=== PATIENT | female | born 1975 | race Caucasian/White ===

== ENCOUNTER 2020-05-10 10:14 | Outpatient (REF) | payer OTHER, SELFPAY ==
--- NOTE | 2020-05-10 10:18 | MM_ITS ---
EXAMINATION: MM SCREENING DIGITAL BREAST TOMOSYNTHESIS, BILATERAL CLINICAL INFORMATION: Screening. Asymptomatic. The lifetime risk of breast cancer based on the Tyrer-Cuzick Model is 19.5%. COMPARISON: Mammography: 05/05/2019, 05/03/2018 TECHNIQUE: Digital breast tomosynthesis is performed in both the craniocaudal and mediolateral oblique views along with computer-aided detection (CAD). Synthesized 2D images are generated from the tomosynthesis. FINDINGS: There are scattered areas of fibroglandular density (ACR BI-RADS breast composition Category b). There are no significant masses, abnormal calcifications, or other abnormalities. The axilla and skin contours are unremarkable. No significant changes. IMPRESSION: No mammographic evidence of malignancy. ASSESSMENT: BI-RADS 1: Negative RECOMMENDATION: Routine annual mammography screening. This patient's information was entered into a reminder system with a target due date for their next mammogram.
== END 2020-05-10 10:15 | disposition home or self-care (01) ==
LOC: HO.MAMMO 10:14
PROVIDERS: PCP Internal Medicine; Visit Provider Internal Medicine
DX: Z12.31 Encounter for screening mammogram for malignant neoplasm of breast (principal)
CPT/HCPCS: 77063; 77067; 78014

== ENCOUNTER → 2020-05-28 09:14 | Outpatient (BNVA) | payer OTHER, SELFPAY | PROVIDERS: PCP Internal Medicine; Visit Provider Obstetrics & Gynecology | DX: Z76.89 Persons encountering health services in other specified circumstances (principal) ==

== ENCOUNTER 2021-06-23 10:52 | Outpatient (REF) | payer BC, SELFPAY ==
--- NOTE | ~2021-06-23 | MM_ITS ---
EXAMINATION: MM SCREENING DIGITAL BREAST TOMOSYNTHESIS, BILATERAL CLINICAL INFORMATION: Screening. Asymptomatic. The lifetime risk of breast cancer based on the Tyrer-Cuzick Model is 24%. COMPARISON: Mammography: 05/10/2020, 05/05/2019, 05/03/2018 TECHNIQUE: Digital breast tomosynthesis is performed in both the craniocaudal and mediolateral oblique views along with computer-aided detection (CAD). Synthesized 2D images are generated from the tomosynthesis. FINDINGS: The breasts are heterogeneously dense, which may obscure small masses (ACR BI-RADS breast composition Category c). Breast tissue composition borders on average fibroglandular. There are no significant masses, abnormal calcifications, or other abnormalities. Parenchymal pattern is similar to prior exams. No developing density. The axilla and skin contours are unremarkable. No significant changes. MM/MM tomosynthesis screening BI IMPRESSION: No mammographic evidence of malignancy. ASSESSMENT: BI-RADS 1: Negative RECOMMENDATION: 1. Routine annual mammography screening. 2. The lifetime risk of breast cancer based on the Tyrer-Cuzick Model is 24%. Additional annual adjunct screening with breast MRI may be of benefit in women with a risk score of 20% or greater. This patient's information was entered into a reminder system with a target due date for their next mammogram.
== END 2021-06-23 10:53 | disposition home or self-care (01) ==
LOC: HO.MAMMO 10:52
PROVIDERS: PCP Internal Medicine; Visit Provider Internal Medicine
DX: Z12.31 Encounter for screening mammogram for malignant neoplasm of breast (principal)
CPT/HCPCS: 77063; 77067

== ENCOUNTER 2021-06-25 06:24 | Day surgery (SDC) | payer BC, SELFPAY ==
[2021-06-19 11:43] VITALS: BMI 39.4
--- NOTE | 2021-06-24 09:10 | HO.ANESPROP2 ---
Documented by User: Arlene Cowan NP 06/24/21 09:11 HPI - Anesthesia Eval Consult details Narrative: 45yo F for Upper Endoscopy PMFSH Active Problems Active Problems: All Active Problems (Updated 10/16/20 @ 10:27 by Hiram Davis MD) Hiatal hernia (Acute) Environmental allergies (Acute) Morbid obesity (Acute) Encounter for general adult medical examination with abnormal findings (Acute) Well woman exam (Acute) Past Medical History Medical History (Updated 10/16/20 @ 10:27 by Hiram Davis MD) GERD (gastroesophageal reflux disease) Family History Family History Mother Uterine cancer Surgical History Surgical History (Updated 06/25/21 @ 06:38 by Adrianne Morrison RN) History of Hx of wisdom tooth extraction Social History Social History Alcohol intake: never Patient Tobacco Use Status: Never used Tobacco Use of substances other than those prescribed or required for medical reasons: No Are you DNR?: No Advance Directives: No Advance Directives Information Provided: Yes Sexual orientation: Straight/Heterosexual Gender identity: Female Meds Allergies Allergy/AdvReac Type Severity Reaction Status Date / Time No Known Allergies Allergy Unverified 10/16/20 09:56 [No Known Allergies*] Home Medications Medication Instructions Recorded Confirmed Last Taken Type desoximetasone 0.25 % topical cream applic TOPICAL BID 05/28/20 10/16/20 Unknown History multivitamin 1 cap PO DAILY 05/28/20 10/16/20 Unknown History pantoprazole 40 mg tablet,delayed 40 mg PO DAILY 05/28/20 10/16/20 Unknown History release Exam Exam Date and Time: June 24, 2021 0910 Height,Weight and Vital Signs: Height 5 ft 6 in Weight 110.677 kg Assessment and Plan Assessment Anesthesia Assessment: Chart Reviewed Documented by User: Susanne Posada MD 06/25/21 07:12 [facility] Past Medical History Medical History (Updated 10/16/20 @ 10:27 by Hiram Davis MD) GERD (gastroesophageal reflux disease) Family History Family History Mother Uterine cancer Family history of problems with anesthesia: No Surgical History Surgical History (Updated 06/25/21 @ 06:38 by Adrianne Morrison RN) History of Hx of wisdom tooth extraction History of Problems with Anesthesia: No Social History Social History Alcohol intake: never Patient Tobacco Use Status: Never used Tobacco Use of substances other than those prescribed or required for medical reasons: No Are you DNR?: No Advance Directives: No Advance Directives Information Provided: Yes Sexual orientation: Straight/Heterosexual Gender identity: Female Meds Allergies Allergy/AdvReac Type Severity Reaction Status Date / Time No Known Allergies Allergy Unverified 10/16/20 09:56 [No Known Allergies*] Home Medications Medication Instructions Recorded Confirmed Last Taken Type desoximetasone 0.25 % topical cream applic TOPICAL BID 05/28/20 10/16/20 Unknown History multivitamin 1 cap PO DAILY 05/28/20 10/16/20 Unknown History pantoprazole 40 mg tablet,delayed 40 mg PO DAILY 05/28/20 10/16/20 Unknown History release Exam Airway Mallampati Class: III (Small mouth ooening) TM Dist: >3cm Neck ROM: Full Heart: rrr Lungs: cta Assessment and Plan Assessment Anesthesia Assessment: Anesthesia Plan Discussed and Chart Reviewed Final Anesthetic Review Family History of Problems with Anesthesia: No History of Problems with Anesthesia: No NPO: Yes (Sio water with med) ASA Class: III Final Preanesthetic Review: No Changes in Pt Med Stat, Meds/Allgs Chart Reviewed and Consent Obtained/Reviewed Patient Risk: Intermediate Procedure Risk: Intermediate Anesthetic Plan Anesthetic Plan: MAC: Disposition: Standard PACU
[2021-06-25 06:49] LABS: UPreg QC Valid YES; Urine Pregnancy NEGATIVE (NEGATIVE)
[2021-06-25 06:56] VITALS: BP 142/80; PULSE 62; RESP 16; TEMP 36.7; O2SAT 99
[2021-06-25] MEDS: Lactated Ringers 1,000 ML 100 ML IVCONT (06:57)
--- NOTE | 2021-06-25 08:12 | PM.OP ---
Brief Operative Note Date of Service: 06/25/21 Pre-op diagnosis: GERD Post-op diagnosis: other (Small hiatal hernia, Gastric polyps) Procedure: EGD with biopsies Surgeon: Kolby Stanton Anesthesia: MAC Was an Grinder Gear used for this Procedure?: No Estimated blood loss (mL): 1.0 Pathology: other (A. Gastric polyps B. Esophagus at 25cm) Condition: stable Disposition: PACU
[2021-06-25 08:14] VITALS: BP 114/76; PULSE 79; RESP 16; TEMP 36.3; O2SAT 99
[2021-06-25 08:30] VITALS: BP 145/89; PULSE 72; RESP 16; TEMP 36.3; O2SAT 96
--- NOTE | 2021-06-25 19:31 | OP_ITS ---
SURGEON: Kolby Stanton MD INDICATIONS: The patient presents for evaluation of gastroesophageal reflux. Full consent was obtained from her for this, including risks of bleeding and perforation. PREOPERATIVE DIAGNOSIS: POSTOPERATIVE DIAGNOSIS: PROCEDURE PERFORMED: Esophagogastroduodenoscopy with biopsies. ESTIMATED BLOOD LOSS: COMPLICATIONS: ANESTHESIA: Monitored anesthesia care. ASSISTANTS: SPECIMENS: PREOPERATIVE DIAGNOSES: Gastroesophageal reflux. POSTOPERATIVE DIAGNOSES: Gastroesophageal reflux, small hiatal hernia, gastric polyps, rule out eosinophilic esophagitis. DESCRIPTION OF PROCEDURE: The patient was placed in the left lateral decubitus position. The Olympus video gastroscope was passed in the posterior oropharynx and upper esophagus under direct vision. The scope was passed slowly into the distal esophagus. The gastroesophageal junction appeared at 35 cm. There was no sign of any esophagitis nor Narayanan's mucosa. The scope entered the stomach. There was a small hiatal hernia. The scope was advanced to pylorus. The duodenum was cannulated at the descending portion. The duodenum including the bulb appeared normal without mass or ulceration. The scope was withdrawn back in the stomach. The gastric antrum and body appeared normal. Good peristalsis. The scope was retroflexed visualizing the proximal stomach carefully, which appeared normal, without any sign of mass or ulceration. There were multiple hyperplastic appearing gastric polyps in the proximal stomach, some of which were biopsied. The scope was withdrawn back into the esophagus. The EG junction appeared normal at 35 cm. Proximal to this, the esophageal mucosa appeared normal. There was no evidence of any proximal esophageal rings nor mucosal abnormalities. I did obtain biopsies at 25 cm. The scope was withdrawn from the patient. She tolerated the procedure well and she was returned to the recovery area in stable condition. IMPRESSION: 1. Small hiatal hernia. 2. Gastric polyps. 3. Rule out eosinophilic esophagitis. PLAN: The results of biopsies will be checked. At this point, she reports that she is doing well on her regimen of daily pantoprazole. I did advise her to continue that long-term. The other shaw thing, as we have discussed, would be to watch her diet and try to lose weight. If she is doing well, she can see me again on a p.r.n. basis. MD TALISHA Sands/BRO / [phone]
== END 2021-06-25 09:00 | disposition home or self-care (01) ==
PROVIDERS: Nurse Practitioner; PCP Internal Medicine; Visit Provider Internal Medicine
PROC: 0DJ08ZZ Inspection of Upper Intestinal Tract, Via Natural or Artificial Opening Endoscopic (ICD-10-PCS; CPT 43235; principal; 2021-06-25 07:30)
DX: K21.9 Gastro-esophageal reflux disease without esophagitis (principal); K44.9 Diaphragmatic hernia without obstruction or gangrene; K31.7 Polyp of stomach and duodenum; K20.80 Other esophagitis without bleeding; Z79.899 Other long term (current) drug therapy
CPT/HCPCS: 43239; 81025; 88305; 88342; J3010

== ENCOUNTER 2021-07-02 09:22 | Outpatient (REF) | payer BC, SELFPAY ==
[2021-07-05 13:06] LABS: HPV mRNA E6/E7 rflx Not Detected (Not Detected)
== END 2021-07-02 09:23 | disposition home or self-care (01) ==
LOC: CF 09:22
PROVIDERS: PCP Internal Medicine; Visit Provider Obstetrics & Gynecology
DX: Z01.419 Encounter for gynecological examination (general) (routine) without abnormal findings (principal); Z11.51 Encounter for screening for human papillomavirus (HPV); Z91.89 Other specified personal risk factors, not elsewhere classified
CPT/HCPCS: 87624; 88142

== ENCOUNTER 2021-08-04 09:25 | Outpatient (REF) | payer BC, SELFPAY ==
--- NOTE | ~2021-08-04 | MR_ITS ---
EXAMINATION: MR BREAST WITHOUT AND WITH CONTRAST, BILATERAL CLINICAL INFORMATION: High-risk screening. COMPARISON: No previous MRI. Tomosynthesis 06/23/2021. TECHNIQUE: Imaging was performed with a dedicated breast coil. Prior to the administration of contrast, bilateral axial T1 and bilateral axial T2-weighted sequences were obtained. After the uneventful administration of?10 mL of Gadavist, dynamic contrast-enhanced VIBRANT series through the breasts in the axial plane were performed. Subtracted images were performed and reviewed. A delayed sagittal sequence through both breasts was acquired. Additionally, CAD post-processing, including maximum intensity projections, 3-D reconstructions and kinetic analysis, were performed an independent workstation and reviewed by the interpreting radiologist is a portion of this exam. FINDINGS: The patient's fibroglandular tissue demonstrates mild background enhancement. LEFT BREAST: In the 6-o'clock position of the left breast, 6.6 cm from the nipple, there is clumped non-mass enhancement measuring at least 3.5 cm in the AP plane (image 84, series 100). There is some mild associated increased signal on the T2-weighted images with this finding. Review of the kinetics demonstrates plateau or type II enhancement. No mammographic correlate on review of the most recent mammogram. Finding is considered suspicious. MRI-guided biopsy is recommended. In addition to this finding, there are multiple type II, T2 hyperintense, enhancing foci in the 5-o'clock position of the left breast, 7.4 cm from the nipple. The margins of these findings are somewhat indistinct. The largest measures approximately 6 mm. Recommend MRI-guided biopsy of the largest finding (image 87, series 100). No other suspicious non-mass or mass enhancement. No additional findings on review of the T2-weighted images. Review of the kinetic images demonstrates no additional suspicious findings. RIGHT BREAST: No suspicious mass-like or non-masslike enhancement. No abnormal skin thickening or nipple retraction. No abnormal architectural distortion. Review of the T2-weighted images demonstrates no fibrocystic changes or dilated ducts. Review of kinetic images reveals no additional findings. There is no suspicious internal mammary chain or axillary adenopathy. Limited views of the chest and abdomen are unremarkable. MR/MR breast BI wo/w con IMPRESSION: 1. Suspicious left breast non-mass enhancement, 6 o'clock. MRI-guided biopsy recommended. 2. Suspicious enhancing foci, left breast, 5 o'clock. MRI-guided biopsy recommended. 3. No MR specific evidence of right breast malignancy. ASSESSMENT: Left Breast: BI-RADS 4 - Suspicious abnormality - Biopsy should be considered. Right Breast: BI-RADS 1-Negative. RECOMMENDATIONS: Two-area MRI-guided biopsy, left breast. Recommendation called to Negrita Powell RN at 's office @9:55 am 08/07/21.
== END 2021-08-04 09:26 | disposition home or self-care (01) ==
LOC: HO.MRI 09:25
PROVIDERS: PCP Internal Medicine; Visit Provider Obstetrics & Gynecology
DX: N64.89 Other specified disorders of breast (principal); R92.8 Other abnormal and inconclusive findings on diagnostic imaging of breast; Z91.89 Other specified personal risk factors, not elsewhere classified
CPT/HCPCS: 77049; A9585

== ENCOUNTER → 2021-08-05 10:23 | Outpatient (BNVA) | payer BC, SELFPAY | PROVIDERS: PCP Internal Medicine; Referring Provider Internal Medicine; Visit Provider Surgery ==

== ENCOUNTER → 2021-08-07 10:35 | Outpatient (BNVA) | payer BC, SELFPAY | PROVIDERS: Visit Provider Obstetrics & Gynecology ==

== ENCOUNTER 2021-08-25 09:09 | Day surgery (SDC) | payer BC, SELFPAY ==
[2021-08-18 19:37] VITALS: BMI 39.4
--- NOTE | 2021-08-22 12:39 | P.CONAN_ITS ---
Documented by User: Arlene Cowan NP 08/22/21 12:39 HPI - Anesthesia Eval Consult details Narrative: 45yo F for Hernia Repair Umbilical with Mesh s/p EGD 06/2021 with MAC PMF Active Problems Active Problems: All Active Problems (Updated 08/18/21 @ 19:33 by Racquel Pat RN) Well woman exam (Acute) Encounter for general adult medical examination with abnormal findings (Acute) Morbid obesity (Acute) Environmental allergies (Acute) Hiatal hernia (Acute) At high risk for breast cancer (Acute) Umbilical hernia (Acute) Abnormal MRI, breast (Acute) Past Medical History Medical History GERD (gastroesophageal reflux disease) History of blood transfusion Family History Family History Mother Uterine cancer, Onset Age: 45 Paternal Aunt Breast CA Maternal Aunt Breast CA Maternal Aunt Breast CA Family/Other Breast CA Family/Other Breast CA Family history of problems with anesthesia: No Surgical History Surgical History History of History of esophagogastroduodenoscopy (EGD) Hx of wisdom tooth extraction History of Problems with Anesthesia: No Social History Social History Alcohol intake: never Patient Tobacco Use Status: Never used Tobacco Use of substances other than those prescribed or required for medical reasons: No Are you DNR?: No Advance Directives: No Advance Directives Information Provided: No Advance Directives on File: No Recently lost weight without trying: No Nutrition Risks: No Nutritional Risk Patient : No : No Sexual orientation: Straight/Heterosexual Gender identity: Female Meds Allergies Allergy/AdvReac Type Severity Reaction Status Date / Time No Known Allergies Allergy Verified 08/25/21 09:21 [No Known Allergies*] Home Medications Medication Instructions Recorded Confirmed Last Taken Type desoximetasone 0.25 % topical cream 1 applic TOPICAL BID 05/28/20 08/05/21 Unknown History multivitamin 1 cap PO DAILY 05/28/20 08/18/21 Unknown History pantoprazole 40 mg tablet,delayed 40 mg PO DAILY 05/28/20 08/18/21 08/25/21 06:45 History release Exam Exam Date and Time: August 22, 2021 1239 Height,Weight and Vital Signs: Height 5 ft 6 in Weight 110.677 kg Assessment and Plan Assessment Anesthesia Assessment: Chart Reviewed Final Anesthetic Review Family History of Problems with Anesthesia: No History of Problems with Anesthesia: No Documented by User: Mary Buck MD 08/25/21 10:27 [facility] Past Medical History Medical History GERD (gastroesophageal reflux disease) History of blood transfusion Family History Family History Mother Uterine cancer, Onset Age: 45 Paternal Aunt Breast CA Maternal Aunt Breast CA Maternal Aunt Breast CA Family/Other Breast CA Family/Other Breast CA Surgical History Surgical History History of History of esophagogastroduodenoscopy (EGD) Hx of wisdom tooth extraction Social History Social History Alcohol intake: never Patient Tobacco Use Status: Never used Tobacco Use of substances other than those prescribed or required for medical reasons: No Are you DNR?: No Advance Directives: No Advance Directives Information Provided: No Advance Directives on File: No Recently lost weight without trying: No Nutrition Risks: No Nutritional Risk Patient : No : No Sexual orientation: Straight/Heterosexual Gender identity: Female Meds Allergies Allergy/AdvReac Type Severity Reaction Status Date / Time No Known Allergies Allergy Verified 08/25/21 09:21 [No Known Allergies*] Home Medications Medication Instructions Recorded Confirmed Last Taken Type desoximetasone 0.25 % topical cream 1 applic TOPICAL BID 05/28/20 08/05/21 Unknown History multivitamin 1 cap PO DAILY 05/28/20 08/18/21 Unknown History pantoprazole 40 mg tablet,delayed 40 mg PO DAILY 10/08/18/21 08/25/21 06:45 History release Exam Airway Mallampati Class: III TM Dist: >3cm Neck ROM: Full Loose/Missing/Broken Teeth: No Heart: RRR Lungs: CTA Assessment and Plan Assessment Anesthesia Assessment: Anesthesia Plan Discussed Final Anesthetic Review NPO: Yes ASA Class: II Final Preanesthetic Review: Meds/Allgs Chart Reviewed, Consent Obtained/Reviewed and Anes Risks/Benef Reviewed Patient Risk: Low Procedure Risk: Low Anesthetic Plan Anesthetic Plan: GA Disposition: Standard PACU
[2021-08-25] VITALS (9 sets, daily range): BP systolic 125–146; BP diastolic 66–87; PULSE 57–92; RESP 14–18; TEMP 36.5–37; O2SAT 95–99
[2021-08-25 09:43] LABS: UPreg QC Valid YES; Urine Pregnancy NEGATIVE (NEGATIVE)
[2021-08-25] MEDS: Lactated Ringers 1,000 ML 100 ML IVCONT (09:57)
--- NOTE | 2021-08-25 10:02 | MHC.SHP ---
Pre-Procedural Eval Section A Date of Service: 08/25/21 The patient is an INPATIENT: No Changes since office visit: Yes Patient answered all questions; No Cold of Flu in the past 2 weeks, No New Medical Problems and No Changes in Medication The History & Physical has been completed within 30 days and I have reviewed it.: Yes Section B Chief Complaint: Umbilical Hernia Allergies: Allergies Allergy/AdvReac Type Severity Reaction Status Date / Time No Known Allergies Allergy Verified 08/25/21 09:21 [No Known Allergies*] Plan Diagnosis/Plan: Unchanged I have reviewed the history and physical and performed a pertinent physical examination on my patient. No changes have occurred unless specified.
--- NOTE | 2021-08-25 11:10 | W.PM.OPN ---
Operative Note Operative Note Date of Service: 08/25/21 Narrative: Preoperative diagnosis:Umbilical hernia Postoperative diagnosis:same Procedure:Repair of umbilical hernia without mesh Surgeon: Perry Lawrence MD Safety Investigator: Maryam Singleton PA-C Anesthesia:General LMA Indications for procedure:45-year-old female patient presenting with a palpable lump in the umbilicus increases in size with lifting and straining. 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 On examination patient has a small umbilical hernia with pain in a deep within the umbilicus. Hernias is increase in size with Valsalva maneuvers. Operative findings: small umbilical hernia measuring approximately 1.5 cm in diameter. Specimen: None Estimated blood loss: 2 ml Complications: none Procedure details: patient was brought to the OR and placed in a supine position. After administering general anesthesia the patient's abdomen was prepped with ChloraPrep and draped in a sterile fashion. a surgical time-out was called the consent confirmed. Patient received preoperative antibiotics and Venodyne boots were in place. Local anesthesia consisting of 0.5% Sensorcaine was infiltrated in the periumbilical skin. A curvilinear incision was then made with a scalpel carried out through subcutaneous tissue. Incision was carried down through subcutaneous tissue up to the muscle fascia. The umbilical skin was then dissected off the fascia. A small umbilical hernia was noted at the base of the umbilicus measuring approximately 1.5 cm in diameter. The margins of the hernia were free from the surrounding subcutaneous tissues. No bowel was noted within the hernia defect. Hernia was closed using [id number] 1 Tycron sutures x2. No mesh was required given the small size of the Hernia. Wounds were then irrigated with saline solution suctioned dry. Additional local was infiltrated at this time. Umbilical skin was then reapproximated using interrupted 3-0 Polysorb sutures in dermis. Skin was then closed using a running subcuticular 4-0 Polysorb suture. Steri-Strips 2 x 2 gauze and Tegaderm were then applied. The patient tolerated the procedure well. Sponge, instrument, and needle counts reported as correct. The patient was transferred to PACU in stable condition.
[2021-08-25] MEDS: fentaNYL citrate/PF 100 MCG/2 ML VIAL 50 MCG IVPUSH ×2 (11:36→11:41)
[2021-08-25] MEDS: oxyCODONE HCl Immed Release 5 MG TABLET 10 MG PO (11:40)
[2021-08-25] MEDS: Acetaminophen 325 MG TABLET 650 MG PO (11:42)
== END 2021-08-25 13:04 | disposition home or self-care (01) ==
PROVIDERS: Nurse Practitioner; PCP Internal Medicine; Visit Provider Surgery
PROC: (CPT 49585; principal; 2021-08-25 10:50)
DX: K42.9 Umbilical hernia without obstruction or gangrene (principal); K21.9 Gastro-esophageal reflux disease without esophagitis; Z87.19 Personal history of other diseases of the digestive system; Z79.899 Other long term (current) drug therapy; Z91.89 Other specified personal risk factors, not elsewhere classified
CPT/HCPCS: 49585; 81025; J0690; J1100; J1885; J2250; J2405; J3010

== ENCOUNTER → 2021-09-02 11:38 | Outpatient (BNVA) | payer BC, SELFPAY | PROVIDERS: PCP Internal Medicine; Referring Provider Internal Medicine; Visit Provider Surgery ==

== ENCOUNTER 2021-09-10 07:40 | Outpatient (REF) | payer BC, SELFPAY ==
--- NOTE | ~2021-09-10 | MR_ITS ---
EXAMINATION: MR GUIDED VACUUM-ASSISTED CORE BIOPSY BREAST, LEFT (TWO SITES) MM DIGITAL MAMMOGRAPHY POST BIOPSY, LEFT CLINICAL INFORMATION: 2 sites left breast on recent high risk screening MRI recommended for tissue sampling. COMPARISON: MR breasts 08/04/2021. TECHNIQUE/PROCEDURE: Informed consent was obtained from the patient after discussion of the benefits, risks, and alternatives to biopsy today. Patient appeared to understand. Gave opportunity for questions. Patient signed consent form. Biopsy is performed under MRI guidance using breast surface coil. Imaging is performed without and with use of 10 mL Gadavist gadolinium contrast. [employer] introducer localization system is used with grid. SPECIMEN A: LESION: Linear cleft non mass enhancement 6:00 position. LOCAL ANESTHESIA: 6 mL carbonated 1% lidocaine; 10 mL 1% lidocaine with epinephrine. NEEDLE: [employer] Atec 9-gauge vacuum assisted core biopsy device. APPROACH: Lateral medial. CORES: 12. CLIP: TriMark cylinder shaped. SPECIMEN B: Separate new biopsy supplies used for second site. LESION: Loosely grouped foci of enhancement inferior left breast. LOCAL ANESTHESIA: : 6 mL carbonated 1% lidocaine; 10 mL 1% lidocaine with epinephrine. NEEDLE: [employer] Atec 9-gauge vacuum assisted core biopsy device. APPROACH: Lateral medial. CORES: 12. CLIP: TriMark barbell shaped. POSTPROCEDURE DIGITAL MAMMOGRAM, LEFT: Mammography is performed using digital mammography in CC and ML views. The breasts are heterogeneously dense, which may obscure small masses (ACR BI-RADS breast composition Category c). The clip markers are deployed and in position. No significant hematoma appreciated. Home instructions reviewed with the patient. Final pathology results are pending. MR/MR guided breast biopsy add IMPRESSION: 1. Status post MRI guided vacuum-assisted core biopsy left breast (2 sites) with clip placements. 2. Final pathology results pending. An addendum report will be issued.
--- NOTE | ~2021-09-10 | MR_ITS ---
EXAMINATION: MR GUIDED VACUUM-ASSISTED CORE BIOPSY BREAST, LEFT (TWO SITES) MM DIGITAL MAMMOGRAPHY POST BIOPSY, LEFT CLINICAL INFORMATION: 2 sites left breast on recent high risk screening MRI recommended for tissue sampling. COMPARISON: MR breasts 08/04/2021. TECHNIQUE/PROCEDURE: Informed consent was obtained from the patient after discussion of the benefits, risks, and alternatives to biopsy today. Patient appeared to understand. Gave opportunity for questions. Patient signed consent form. Biopsy is performed under MRI guidance using breast surface coil. Imaging is performed without and with use of 10 mL Gadavist gadolinium contrast. [employer] introducer localization system is used with grid. SPECIMEN A: LESION: Linear cleft non mass enhancement 6:00 position. LOCAL ANESTHESIA: 6 mL carbonated 1% lidocaine; 10 mL 1% lidocaine with epinephrine. NEEDLE: [employer] Atec 9-gauge vacuum assisted core biopsy device. APPROACH: Lateral medial. CORES: 12. CLIP: TriMark cylinder shaped. SPECIMEN B: Separate new biopsy supplies used for second site. LESION: Loosely grouped foci of enhancement inferior left breast. LOCAL ANESTHESIA: : 6 mL carbonated 1% lidocaine; 10 mL 1% lidocaine with epinephrine. NEEDLE: [employer] Atec 9-gauge vacuum assisted core biopsy device. APPROACH: Lateral medial. CORES: 12. CLIP: TriMark barbell shaped. POSTPROCEDURE DIGITAL MAMMOGRAM, LEFT: Mammography is performed using digital mammography in CC and ML views. The breasts are heterogeneously dense, which may obscure small masses (ACR BI-RADS breast composition Category c). The clip markers are deployed and in position. No significant hematoma appreciated. Home instructions reviewed with the patient. Final pathology results are pending. MR/MR guided breast biopsy LT IMPRESSION: 1. Status post MRI guided vacuum-assisted core biopsy left breast (2 sites) with clip placements. 2. Final pathology results pending. An addendum report will be issued.
[2021-09-10] MEDS: Lidocaine HCl 1%/Epi 1:100,000 20 ML VIAL INFILTRATI (10:31)
[2021-09-10] MEDS: Sodium Bicarbonate 8.4% 50 MEQ/50 ML SYRINGE IVPUSH (10:32)
[2021-09-10] MEDS: Lidocaine HCl 1 % MPF 5 ML VIAL EPIDURAL ×3 (10:34→10:37)
== END 2021-09-10 07:41 | disposition home or self-care (01) ==
LOC: HO.MRI 07:40
PROVIDERS: Visit Provider Surgery
DX: R92.8 Other abnormal and inconclusive findings on diagnostic imaging of breast (principal)
CPT/HCPCS: 19085; 19086; 77065; 88305; 88342; A4648; A9585

== ENCOUNTER → 2021-09-16 09:34 | Outpatient (BNVA) | payer BC, SELFPAY | PROVIDERS: PCP Internal Medicine; Referring Provider Internal Medicine; Visit Provider Surgery ==

== ENCOUNTER 2021-10-01 06:51 | Day surgery (SDC) | payer BC, SELFPAY ==
[2021-09-26 09:24] VITALS: BMI 39.4
--- NOTE | 2021-09-30 10:15 | HO.ANESPROP2 ---
Documented by User: Arlene Cowan NP 09/30/21 10:16 HPI - Anesthesia Eval Consult details Narrative: 45yo F for Left Breast Lumpectomy/Needle Loc s/p umbilical hernia repair 08/2021 with GA-LMA 4 PMFSH Active Problems Active Problems: All Active Problems (Updated 09/26/21 @ 09:23 by Nikki Gonzalez, MILAD) Well woman exam (Acute) Encounter for general adult medical examination with abnormal findings (Acute) Morbid obesity (Acute) Environmental allergies (Acute) Hiatal hernia (Acute) At high risk for breast cancer (Acute) Umbilical hernia (Acute) Abnormal MRI, breast (Acute) Atypical ductal hyperplasia of left breast (Acute) Pseudoangiomatous stromal hyperplasia of breast (Acute) H/O umbilical hernia repair (Acute 08/25/21) Past Medical History Medical History Atypical ductal hyperplasia of left breast COVID-19 vaccine series completed GERD (gastroesophageal reflux disease) Hiatal hernia History of blood transfusion Pseudoangiomatous stromal hyperplasia of breast Family History Family History Mother Uterine cancer, Onset Age: 45 Paternal Aunt Breast CA Maternal Aunt Breast CA Maternal Aunt Breast CA Family/Other Breast CA Family/Other Breast CA Family history of problems with anesthesia: No Surgical History Surgical History H/O umbilical hernia repair (08/25/21) History of History of esophagogastroduodenoscopy (EGD) History of esophagogastroduodenoscopy (EGD) Hx of dilation and curettage Hx of wisdom tooth extraction History of Problems with Anesthesia: No Social History Social History Are you a primary medical care administrator to a significant other at home: No Do you presently have visiting nurse or other home services: No Alcohol intake: never Patient Tobacco Use Status: Never used Tobacco Use of substances other than those prescribed or required for medical reasons: No Have you been hit, kicked, punched, or otherwise hurt by someone within the past year? If so, by whom?: No Are you DNR?: No Advance Directives: No Advance Directives Information Provided: Yes Advance Directives on File: No Recently lost weight without trying: No Eating poorly because of decreased appetite: No Nutrition Risks: No Nutritional Risk Patient : No FDLMP: 09/25/21 : No Poor oral hygiene: No Sexual orientation: Straight/Heterosexual Gender identity: Female Meds Allergies Allergy/AdvReac Type Severity Reaction Status Date / Time Seasonal Allergies Allergy Intermediate itchy Verified 09/26/21 10:09 eyes/nasal congestion Home Medications Medication Instructions Recorded Confirmed Last Taken Type desoximetasone 0.25 % topical cream 1 applic TOPICAL BID 05/28/20 09/26/21 Unknown History multivitamin 1 cap PO DAILY 05/28/20 09/26/21 Unknown History pantoprazole 40 mg tablet,delayed 40 mg PO DAILY 05/28/20 09/26/21 10/01/21 06:30 History release calcium carbonate 600 mg-vitamin 2 tab PO DAILY 09/26/21 09/26/21 Unknown History D3 5 mcg (200 unit) tablet Exam Exam Date and Time: September 30, 2021 1015 Height,Weight and Vital Signs: Height 5 ft 6 in Weight 110.677 kg Assessment and Plan Assessment Anesthesia Assessment: Chart Reviewed Final Anesthetic Review Family History of Problems with Anesthesia: No History of Problems with Anesthesia: No Documented by User: Susanne Posada MD 10/01/21 08:49 [facility] Past Medical History Medical History Atypical ductal hyperplasia of left breast COVID-19 vaccine series completed GERD (gastroesophageal reflux disease) Hiatal hernia History of blood transfusion Pseudoangiomatous stromal hyperplasia of breast Family History Family History Mother Uterine cancer, Onset Age: 45 Paternal Aunt Breast CA Maternal Aunt Breast CA Maternal Aunt Breast CA Family/Other Breast CA Family/Other Breast CA Surgical History Surgical History H/O umbilical hernia repair (08/25/21) History of History of esophagogastroduodenoscopy (EGD) History of esophagogastroduodenoscopy (EGD) Hx of dilation and curettage Hx of wisdom tooth extraction Social History Social History Are you a primary medical care administrator to a significant other at home: No Do you presently have visiting nurse or other home services: No Alcohol intake: never Patient Tobacco Use Status: Never used Tobacco Use of substances other than those prescribed or required for medical reasons: No Have you been hit, kicked, punched, or otherwise hurt by someone within the past year? If so, by whom?: No Are you DNR?: No Advance Directives: No Advance Directives Information Provided: Yes Advance Directives on File: No Recently lost weight without trying: No Eating poorly because of decreased appetite: No Nutrition Risks: No Nutritional Risk Patient : No FDLMP: 09/25/21 : No Poor oral hygiene: No Sexual orientation: Straight/Heterosexual Gender identity: Female Meds Allergies Allergy/AdvReac Type Severity Reaction Status Date / Time Seasonal Allergies Allergy Intermediate itchy Verified 09/26/21 10:09 eyes/nasal congestion Home Medications Medication Instructions Recorded Confirmed Last Taken Type desoximetasone 0.25 % topical cream 1 applic TOPICAL BID 05/28/20 09/26/21 Unknown History multivitamin 1 cap PO DAILY 05/28/20 09/26/21 Unknown History pantoprazole 40 mg tablet,delayed 40 mg PO DAILY 05/28/20 09/26/21 10/01/21 06:30 History release calcium carbonate 600 mg-vitamin 2 tab PO DAILY 09/26/21 09/26/21 Unknown History D3 5 mcg (200 unit) tablet Exam Airway Mallampati Class: III (Small mouth opening) TM Dist: >3cm Neck ROM: Full Heart: rrr Lungs: cta Assessment and Plan Assessment Anesthesia Assessment: Anesthesia Plan Discussed and Chart Reviewed Final Anesthetic Review NPO: Yes ASA Class: II Final Preanesthetic Review: No Changes in Pt Med Stat, Meds/Allgs Chart Reviewed and Consent Obtained/Reviewed Patient Risk: Intermediate Procedure Risk: Intermediate Anesthetic Plan Anesthetic Plan: GA Disposition: Standard PACU
--- NOTE | ~2021-10-01 | MM_ITS ---
EXAMINATION: MM MAMMOGRAM GUIDED NEEDLE LOCALIZATION BREAST, LEFT MM NEEDLE LOCALIZATION SPECIMEN FROM THE LEFT BREAST CLINICAL INFORMATION: Atypical ductal hyperplasia and flat epithelial atypia on left breast MR guided biopsy (specimen B, barbell shaped clip marker). COMPARISON: MR guided left breast biopsy 09/10/2021, mammography 09/10/2021, MR breasts 08/04/2021. TECHNIQUE NEEDLE LOC: Proper informed consent is obtained from the patient after discussion of the procedure, potential risks and complications, and alternatives including declining the procedure today. Patient was given an opportunity for questions. The patient appeared to understand. The patient consented to the procedure and signed the consent form. GUIDANCE: Digital mammography. APPROACH: Caudal Cranial. TARGET: Barbell shaped clip marker, more posterior of the 2 clips lower left breast. ANESTHESIA: Carbonated lidocaine 1%: 7 mL. LOCALIZATION MARKER: [place] [employer]. 5 cm length. The skin is prepped and local anesthesia administered. The needle is positioned and position assessed with mammography. The wire is hooked into position. [place] needle protector placed. The patient tolerated the procedure well and had no immediate complication. Localization procedure results called to certified medical asst (Marie) for Dr. Lawrence prior to surgery. TECHNIQUE SPECIMEN RADIOGRAPH: Imaging of the excised specimen is performed using digital mammography in 1 view. FINDINGS SPECIMEN RADIOGRAPH: The specimen shows the needle and hookwire are delivered intact. The barbell biopsy clip marker is within the specimen adjacent to the localization needle. Punctate calcification also noted near this area. Results were called to Dr. Perry Lawrence in the operating room at the time of imaging. MM/MM needle loc LT IMPRESSION: 1. Status post left breast needle localization with wire hooked into position. 2. Post operative specimen radiograph obtained.
[2021-10-01 07:11] LABS: UPreg QC Valid YES
[2021-10-01 07:13] LABS: Urine Pregnancy NEGATIVE (NEGATIVE)
[2021-10-01 07:15] VITALS: BP 138/82; PULSE 82; RESP 16; TEMP 36.9; O2SAT 97
[2021-10-01] MEDS: Lactated Ringers 1,000 ML 100 ML IVCONT (07:27)
--- NOTE | 2021-10-01 08:44 | MHC.SHP ---
Pre-Procedural Eval Section A Date of Service: 10/01/21 The patient is an INPATIENT: No Changes since office visit: No Cold of Flu in the past 2 weeks, No New Medical Problems, No Changes in Medication and No Patient answered all questions The History & Physical has been completed within 30 days and I have reviewed it.: Yes Section B Chief Complaint: Pseudoangiomatous stromal hyperplasia of breast Allergies: Allergies Allergy/AdvReac Type Severity Reaction Status Date / Time Seasonal Allergies Allergy Intermediate itchy Verified 09/26/21 10:09 eyes/nasal congestion Plan Diagnosis/Plan: Unchanged I have reviewed the history and physical and performed a pertinent physical examination on my patient. No changes have occurred unless specified.
[2021-10-01] MEDS: Lidocaine HCl 1 % 20 ML VIAL 9 ML SUBCUT (09:29)
[2021-10-01] MEDS: Sodium Bicarbonate 8.4% 50 MEQ/50 ML VIAL SUBCUT (09:29)
--- NOTE | 2021-10-01 10:27 | W.PM.OPN ---
Operative Note Operative Note Date of Service: 10/01/21 Narrative: Preoperative diagnosis: atypical ductal hyperplasia left breast Postoperative diagnosis: same Procedure: left breast lumpectomy with needle localization Surgeon: Perry Lawrence MD Merchandise Clerk: no physician Anesthesia: general LMA Indications for procedure: 45-year-old female patient presenting with a recent MR guided biopsy which revealed atypical ductal hyperplasia of the left breast at the 6 o'clock position. She presents today for complete excision to assure complete removal. Operative findings: Specimen x-ray confirmed the marking clip within the specimen. Pathology indicated biopsy cavity within the specimen. Specimen: Left breast lumpectomy Estimated blood loss: 5 mL Complications: none Procedure details: patient was brought to the OR and placed in a supine position. After administering general anesthesia the patient's left breast was prepped with ChloraPrep and draped in a sterile fashion. A surgical time-out was called the consent confirmed. Patient received preoperative antibiotics and Venodyne boots were in place. Local anesthesia consisting of 0.5% Sensorcaine was infiltrated along the localizing needle in the 6 o'clock position just above the inframammary crease. Transverse incision was then made to include the localizing needle. The incision was carried down through subcutaneous tissue. Superior inferior skin flaps were then created. Core tissue surrounding the localizing needle was then excised using electrocautery beginning at the superior margin continue with the medial then lateral than inferior margin. Posterior margin was then completed in the specimen removed. The lesion was sent to Radiology for specimen x-ray. This confirmed the localizing clip within the specimen. Lesion was sent to pathology for gross examination. This confirmed the biopsy cavity within the specimen. The breast wounds were checked for hemostasis which was assured using electrocautery. Wounds were irrigated with saline solution and suctioned dry. Deep breast tissue and dermis were reapproximated using interrupted 3-0 Polysorb sutures. Skin was then closed using a running subcuticular 4-0 Polysorb suture. Steri-Strips, 2 x 2 gauze, and Tegaderm were then applied. The patient tolerated the procedure well. Sponge, instrument, and needle counts reported as correct. The patient was transferred to PACU in stable condition.
[2021-10-01 10:33] VITALS: BP 140/97; PULSE 89; RESP 16; TEMP 36.3; O2SAT 99
[2021-10-01 10:43] VITALS: BP 133/79; PULSE 71; RESP 18; O2SAT 97
[2021-10-01 10:47] VITALS: BP 133/79; PULSE 84; O2SAT 96
[2021-10-01 10:52] VITALS: BP 129/84; PULSE 65; RESP 18; TEMP 36.1; O2SAT 98
[2021-10-01 11:08] VITALS: BP 129/75; PULSE 65; RESP 16; TEMP 36.2; O2SAT 96
== END 2021-10-01 11:56 | disposition home or self-care (01) ==
PROVIDERS: Nurse Practitioner; PCP Internal Medicine; Visit Provider Surgery
PROC: (CPT 19301; principal; 2021-10-01 09:10)
DX: N60.82 Other benign mammary dysplasias of left breast (principal); N64.89 Other specified disorders of breast; N60.12 Diffuse cystic mastopathy of left breast; Z91.89 Other specified personal risk factors, not elsewhere classified; Z98.890 Other specified postprocedural states
CPT/HCPCS: 19301; 19281; 81025; 88307; 88329; A4648; J0690; J1100; J1885; J2250; J2405; J3010

== ENCOUNTER → 2021-10-09 08:58 | Outpatient (BNVA) | payer BC, SELFPAY | PROVIDERS: PCP Internal Medicine; Referring Provider Internal Medicine; Visit Provider Surgery ==

== ENCOUNTER 2022-06-24 11:19 | Outpatient (REF) | payer BC, SELFPAY ==
--- NOTE | ~2022-06-24 | MM_ITS ---
EXAMINATION: MM SCREENING DIGITAL BREAST TOMOSYNTHESIS, BILATERAL CLINICAL INFORMATION: Due for yearly. History left breast ADH and FEA (Specimen B; MR biopsy 09/10/2021). Subsequent open surgical biopsy 10/01/2021 (ductal papillomatosis, cystic papillary apocrine metaplasia, columnar cell changes, focal and biopsy site changes). COMPARISON: Mammography: 322, 09/10/2021, 06/23/2021, 05/10/2020, 05/05/2019 TECHNIQUE: Digital breast tomosynthesis is performed in both the craniocaudal and mediolateral oblique views along with computer-aided detection (CAD). Synthesized 2D images are generated from the tomosynthesis. Additional right MLO view is provided. FINDINGS: The breasts are heterogeneously dense, which may obscure small masses (ACR BI-RADS breast composition Category c). There are minor post surgical changes on left. There is a cylinder shaped biopsy clip marker left breast 6:00 position from benign MR biopsy, no atypia. The remainder of the breasts are unremarkable with no significant changes from prior studies. No developing density or architectural abnormality or abnormal calcifications. The axilla are unremarkable. MM/MM tomosynthesis screening BI IMPRESSION: No mammographic evidence of malignancy. ASSESSMENT: BI-RADS 2: Benign RECOMMENDATION: Routine annual mammography screening. This patient's information was entered into a reminder system with a target due date for their next mammogram.
== END 2022-06-24 11:20 | disposition home or self-care (01) ==
LOC: HO.MAMMO 11:19
PROVIDERS: PCP Internal Medicine; Visit Provider Surgery
DX: Z12.31 Encounter for screening mammogram for malignant neoplasm of breast (principal)
CPT/HCPCS: 77063; 77067

== ENCOUNTER → 2022-11-12 08:57 | Outpatient (BNVA) | payer BC, SELFPAY | PROVIDERS: PCP Internal Medicine; Visit Provider Surgery | DX: Z91.89 Other specified personal risk factors, not elsewhere classified (principal); N64.89 Other specified disorders of breast; N60.92 Unspecified benign mammary dysplasia of left breast ==

== ENCOUNTER 2022-12-24 08:15 | Outpatient (REF) | payer BC, SELFPAY ==
--- NOTE | ~2022-12-24 | MR_ITS ---
EXAMINATION: MR BREAST WITHOUT AND WITH CONTRAST, BILATERAL CLINICAL INFORMATION: High-risk screening. History of left breast atypia. Lifetime risk reported at 24% COMPARISON: MRI 08/04/2021. Intervening left breast procedures and mammography. TECHNIQUE: Imaging was performed with a dedicated breast coil. Prior to the administration of contrast, bilateral axial T1 and bilateral axial T2 weighted sequences were obtained. After the uneventful administration of?10 mL of Gadavist, dynamic contrast-enhanced VIBRANT series through the breasts in the axial plane were performed. Subtracted images were performed and reviewed. A delayed sagittal sequence through both breasts was acquired. Additionally, CAD post-processing, including maximum intensity projections, 3-D reconstructions and kinetic analysis, were performed an independent workstation and reviewed by the interpreting radiologist is a portion of this exam. FINDINGS: The breasts are comprised of heterogeneous, dense fibroglandular parenchyma. The tissue undergoes mild background enhancement. LEFT BREAST: Architectural distortion and susceptibility artifact in the deep 6:00 position of the left breast site of prior excision for atypia. No abnormal associated enhancement. Regional foci of nonmass enhancement in the left lower outer quadrant has decreased in conspicuity when compared with the prior exam. Continue follow-up in one year's time. No new suspicious left breast mass or dominant nonmass enhancement. RIGHT BREAST: No suspicious mass, dominant nonmass enhancement or architectural distortion. A central focus of nonmass enhancement is stable There is a small at 10 mm skin lesion in the right breast at 7:00 (image 103/110) 7 cm from the nipple. Similar T2 bright with minimal rim enhancement this likely reflects a sebaceous cyst or other dermal lesion. Clinical correlation advised. There is no suspicious internal mammary chain or axillary adenopathy. Limited views of the chest and abdomen are unremarkable. MR/MR breast BI wo/w con IMPRESSION: 1. Postsurgical biopsy changes in the left breast 6:00 position. 2. No significant change in small scattered foci of nonmass enhancement throughout both breasts. No MR specific evidence of breast malignancy. 3. New small right skin lesion 7:00 7 cm from nipple. Correlate with physical exam. ASSESSMENT: LEFT BREAST: BI-RADS 2, benign findings. RIGHT BREAST: BI-RADS 2, benign findings. RECOMMENDATIONS: 1. Repeat bilateral breast MRI in 12 months. 2. Physical examination for new right breast skin lesion at 7:00.
== END 2022-12-24 08:16 | disposition home or self-care (01) ==
LOC: HO.MRI 08:15
PROVIDERS: PCP Internal Medicine; Visit Provider Surgery
DX: N60.92 Unspecified benign mammary dysplasia of left breast (principal); N64.89 Other specified disorders of breast; Z91.89 Other specified personal risk factors, not elsewhere classified
CPT/HCPCS: 77049; A9585

== ENCOUNTER 2023-04-27 08:37 | Outpatient (AMB) | payer BC, SELFPAY ==
[2023-04-27 08:46] VITALS: BP 142/78; BMI 43.4
--- NOTE | 2023-04-27 08:46 | A.OFFVIS_ITS ---
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 No complaints. Last Pap/HPV was negative in 07/22 Last Mammogram was BI-RADS 2 in 06/23, breast MRI done in 12/22, left and right breast BI-RADS 2, the patient is under the care of Dr. 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 History of blood transfusion GERD (gastroesophageal reflux disease) Surgical History History of esophagogastroduodenoscopy (EGD) Hx of dilation and curettage H/O umbilical hernia repair (08/25/21) History of esophagogastroduodenoscopy (EGD) Hx of wisdom tooth extraction History of Family History Mother Uterine cancer, Onset Age: 45 Paternal Aunt Breast CA Maternal Aunt Breast CA Maternal Aunt Breast CA Family/Other Breast CA Family/Other Breast CA Social History Are you a primary caregivers homecare to a significant other at home: No Do you presently have visiting nurse or other home services: No Alcohol intake: never Patient Tobacco Use Status: Never used Tobacco Sexual orientation: Straight/Heterosexual Gender identity: Female Female Reproductive History Menstrual Age of Menarche: 16 Duration of menses: 3-5 days Date of last menstrual period: 04/01/23 control method: none Total pregnancies: 1 Full term: 1 Number of Living Children: 1 Date of last pap smear: 07/03/21 (negative) History of abnormal pap smear: No Date of Mammogram: 06/24/22 Review of Systems Const All systems reviewed & are unremarkable except as noted in HPI and below Card Reports as per HPI Resp Reports as per HPI GI Reports as per HPI and Reports no additional complaints Reports as per HPI Physical Exam Vital Signs: Last Vital Signs BP 142/78 H 04/27/23 08:46 BMI result Body Mass Index 43.4 Const General: cooperative, healthy appearing and comfortable Chest Chest palpation & inspection: normal inspection of the chest and normal palpation of entire chest wall Breast/axilla inspection: normal inspection of the breasts and normal inspection of the axillae Breast/axilla palpation: normal palpation of the breasts, normal palpation of the axillae and no axillary lymphadenopathy Resp Effort & Inspection: normal respiratory effort Auscultation: clear to auscultation bilaterally Percussion: percussion normal Cardio Palpation: normal PMI Rate: regular rate Rhythm: regular rhythm Heart sounds: no murmurs and no rubs Peripheral pulses: Peripheral pulses 2+ throughout GI Inspection: Yes normal to inspection Palpation (GI): Soft to palpation, nontender, no guarding, not rigid and No hepatosplenomegaly present Percussion: Yes normal to percussion Auscultation: normal bowel sounds Rectal Exam - Female: deferred General: Yes bladder normal to palpation External Female Exam: No lesion Speculum Exam - Vagina: normal appearance of the vagina, normal palpation, normal vaginal discharge and not erythematous Speculum Exam - Cervix: normal appearance of the cervix and normal palpation Bimanual exam- vagina & uterus: normal bimanual exam, normal palpation, uterine size normal, bladder normal to palpation, consistency normal and normal pa lpation Bimanual Exam- Adnexa, other: normal adnexae, no masses and no tenderness Assessment & Plan Assessment & Plan (1) Well woman exam: Code(s): Z01.419 - Encounter for gynecological examination (general) (routine) without abnormal findings Plan: Cotesting not indicated this year. Mammogram scheduled on 07/03/2023. MRI of breast will be ordered by Dr. Lawrence was office according to her, the patient has an appointment to be seen May Counseled the patient about the recommended dietary allowance of 1000 mg of Calcium & 600 IU of vitamin D. GI Referral placed by the patient's PCP for screening colonoscopy The patient was instructed to perform monthly self-breast exams and to schedule an annual exam in a year; All questions answered and the patient verbalized understanding. Instructed the patient to schedule annual exam in a year Coding Level of Care Code Est Pt Prev Care 40-64y(93163) Diagnoses Well woman exam Z01.419
== END 2023-04-27 09:27 | disposition home or self-care (01) ==
PROVIDERS: PCP Internal Medicine; Visit Provider Obstetrics & Gynecology
DX: Z01.419 Encounter for gynecological examination (general) (routine) without abnormal findings (principal)
CPT/HCPCS: 99396

== ENCOUNTER → 2023-04-27 08:37 | Outpatient (BNVA) | payer BC, SELFPAY | PROVIDERS: PCP Internal Medicine; Visit Provider Obstetrics & Gynecology ==

== ENCOUNTER 2023-06-10 09:35 | Outpatient (AMB) | payer BC, SELFPAY ==
--- NOTE | 2023-06-10 09:44 | A.OFFVIS_ITS ---
Intake Vital Signs 3 06/10/23 09:53 Height 5 ft 5 in Weight 260 lb BMI 43.3 BP 186/97 H Blood Pressure Location Lt brachial Position Sitting Pulse 94 Intake Visit Reasons: 6 month breast exam Intake Note: Patient is seen in office for 6 month follow up, breast exam. 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 She reports a family history of breast cancer in a maternal aunt and paternal aunt. She reports a 1st cousin diagnosed in August 2021 at the age of 59 breast cancer metastatic to lymph nodes. She is 1 para 1, breast fed her child. She denies a prior history of breast problems or breast surgery. She was previously determined to have a Tyrer-Cuzick remaining lifetime risk of breast cancer of approximately 24%. She was subsequently placed on a high risk protocol including yearly mammogram and breast MRI as well as twice yearly clinical breast examinations. Mammogram of 06/23/2021 revealed only benign findings (BI-RADS 1). Breast MRI performed on 08/04/2021 revealed a suspicious left breast non mass enhancement at the 06:00 o'clock location as well as a suspicious enhancing foci in the 05:00 o'clock location. Both were considered suspicious for malignancy and MR guided biopsy recommended. Pathology revealed pseudoangiomatous stromal hyperplasia in the 1st lesion and atypical ductal hyperplasia in the 2nd lesion. She subsequently underwent a left breast lumpectomy with needle localization to remove the area of atypical ductal hyperplasia on 10/01/2021. Pathology for the lumpectomy revealed: ?Breast parenchyma with ductal papillomatosis, cystic papillary apocrine metaplasia, columnar cell cell changes, focal pseudoangiomatous stromal hyperplasia (PASH) and previous biopsy site changes; negative for atypia or malignancy. Genetic testing drawn on 09/16/2021 revealed no clinically significant mutations identified. 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 Her Tyrer-Cuzick breast cancer risk calculation for remaining lifetime breast cancer risk was calculated at 42.2%. A high risk breast cancer protocol was recommended. Her most recent mammogram of 06/24/2022 revealed no mammographic evidence of malignancy and post therapy changes in the left breast (BI-RADS 2). She is scheduled for a follow-up mammogram on 07/03/2023. Her last breast MRI of 12/24/2022 revealed no MR specific evidence of malignancy (BI-RADS 2 bilateral). There was a right breast skin lesion noted at the 7 o'clock position, 7 cm from the nipple and clinical correlation was recommended. She reports being diagnosed with sleep apnea and now has CPAP which she is still getting used to. 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 History of blood transfusion GERD (gastroesophageal reflux disease) Surgical History History of esophagogastroduodenoscopy (EGD) Hx of dilation and curettage H/O umbilical hernia repair (08/25/21) History of esophagogastroduodenoscopy (EGD) Hx of wisdom tooth extraction History of Family History Mother Uterine cancer, Onset Age: 45 Paternal Aunt Breast CA Maternal Aunt Breast CA Maternal Aunt Breast CA Family/Other Breast CA Family/Other Breast CA Social History Are you a primary career development consultant to a significant other at home: No Do you presently have visiting nurse or other home services: No Alcohol intake: never Patient Tobacco Use Status: Never used Tobacco Sexual orientation: Straight/Heterosexual Gender identity: Female Female Reproductive History Menstrual Age of Menarche: 16 Review of Systems Const Denies chills, Denies fever(s), Denies headache(s) and Denies poor appetite ENT Denies dizziness and Denies headache(s) Card Denies chest pain, Denies rapid heart rate, Denies palpitations and Denies slow heart rate Resp Denies chest congestion, Reports cough, Denies pain on inspiration and Denies wheezing GI Reports as per HPI, Reports abdominal pain, Denies bloating, Denies change in stool character, Denies constipation, Denies diarrhea, Denies nausea, Denies vomiting and Denies hematemesis Denies nipple discharge Musc Denies back pain, Denies arthralgias, Denies joint swelling and Denies numbness Skin/Breast Denies breast swelling, Reports breast skin changes (Bruising as noted above), Denies breast pain, Denies breast mass, Denies change in breast shape, Denies change in pigmentation, Denies nipple discharge, Denies erythema and Denies rash Neuro Denies dizziness, Denies headache(s) and Denies numbness Psych Denies anxiety and Denies depression Endo Denies palpitations Pancho/Lymph Denies easy bleeding, Denies easy bruising and Denies lymphadenopathy Aller/Immun Denies wheezing Physical Exam Const General: no acute distress and well developed Nutritional Appearance: average body habitus Orientation/consciousness: patient oriented x3 Limitations: no limitations Chest Other: Incision in the left breast at the lower inner quadrant just above the inframammary crease is clean, dry, and intact without redness or discharge. No seroma or hematoma is appreciated. No skin change, no nipple retraction, no nipple discharge, no palpable mass, no enlarged lymph nodes. Right breast: No skin change corresponding to MRI finding, no nipple retraction, no nipple discharge, no palpable mass, no enlarged lymph nodes Chest/axillae images: 2 1. Incision lower inner quadrant breast left Resp Effort & Inspection: normal respiratory effort, no audible wheezes, Actively coughing and no respiratory distress GI Inspection: Yes normal to inspection Skin Other: Warm, dry, no rash Neuro General: patient oriented x3 Extrem Other: No edema Assessment & Plan Assessment & Plan (1) Atypical ductal hyperplasia of left breast: Code(s): N60.92 - Unspecified benign mammary dysplasia of left breast (2) Pseudoangiomatous stromal hyperplasia of breast: Code(s): N64.89 - Other specified disorders of breast (3) At high risk for breast cancer: Code(s): Z91.89 - Other specified personal risk factors, not elsewhere classified Plan: Patient returns today for follow-up breast examination. Examination reveals no suspicious findings in either breast. She was found to have a Tyrer-Cuzick remaining lifetime risk of breast cancer of 42.2% and should continue with the high risk breast screening. I recommended continuing yearly mammogram and breast MRIs as well as twice yearly clinical breast examinations. She was also encouraged to perform monthly self examinations and call for any concerns. She will follow up in 6 months. Her next mammogram will be performed on 07/03/2023. Her annual breast MRI has been requested for December 2023. Coding Level of Care Code Est Pt Level 3 (76567) Diagnoses Atypical ductal hyperplasia of left breast N60.92 Pseudoangiomatous stromal hyperplasia of breast N64.89 At high risk for breast cancer Z91.89
[2023-06-10 09:53] VITALS: BP 186/97; PULSE 94; BMI 43.3
== END 2023-06-10 10:04 | disposition home or self-care (01) ==
PROVIDERS: PCP Internal Medicine; Visit Provider Surgery
DX: N60.92 Unspecified benign mammary dysplasia of left breast (principal); N64.89 Other specified disorders of breast; Z91.89 Other specified personal risk factors, not elsewhere classified
CPT/HCPCS: 99213

== ENCOUNTER → 2023-06-10 09:35 | Outpatient (BNVA) | payer BC, SELFPAY | PROVIDERS: PCP Internal Medicine; Visit Provider Surgery ==

== ENCOUNTER 2023-07-03 08:59 | Outpatient (REF) | payer BC, SELFPAY ==
--- NOTE | ~2023-07-03 | MM_ITS ---
EXAMINATION: MM SCREENING DIGITAL BREAST TOMOSYNTHESIS, BILATERAL CLINICAL INFORMATION: Screening. Asymptomatic. COMPARISON: Mammography: This study is compared with prior exams dating back to 2019. TECHNIQUE: Digital breast tomosynthesis is performed in both the craniocaudal and mediolateral oblique views along with computer-aided detection (CAD). Synthesized 2D images are generated from the tomosynthesis. FINDINGS: There are scattered areas of fibroglandular density (ACR BI-RADS breast composition Category b). There are no significant masses, abnormal calcifications, or other abnormalities. There is a tissue marker present in the left breast from prior benign percutaneous biopsy. MM/MM tomosynthesis screening BI IMPRESSION: No mammographic evidence of malignancy. ASSESSMENT: BI-RADS BI-RADS 2 - Benign Findings RECOMMENDATION: Routine annual mammography screening. 1 year F/U This examination should not preclude the clinical evaluation of a suspicious palpable abnormality. This patient's information was entered into a reminder system with a target due date for their next mammogram.
== END 2023-07-03 09:00 | disposition home or self-care (01) ==
LOC: HO.MAMMO 08:59
PROVIDERS: PCP Internal Medicine; Visit Provider Internal Medicine
DX: Z12.31 Encounter for screening mammogram for malignant neoplasm of breast (principal)
CPT/HCPCS: 77063; 77067

== ENCOUNTER → 2023-07-03 09:00 | Outpatient (BNV) | payer BC, SELFPAY | PROVIDERS: PCP Internal Medicine; Visit Provider Radiology Diagnostic Radiology | DX: Z12.31 Encounter for screening mammogram for malignant neoplasm of breast (principal) | CPT/HCPCS: 77063; 77067 ==

== ENCOUNTER 2023-12-09 09:04 | Outpatient (AMB) | payer BC, SELFPAY ==
--- NOTE | 2023-12-09 09:15 | MHC.OFFVIS ---
Vital Signs 12/09/23 09:23 Height 5 ft 5 in Weight 260 lb BMI 43.3 BP 120/81 Blood Pressure Location Lt brachial Position Sitting Pulse 97 Intake Visit Reasons: 6 month breast exam Intake Note: Patient is seen in office for 6 month follow up, breast exam. 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: Canvassing Manager Present Accompanied by: Self / Same As Patient Allergies Seasonal Allergies Allergy (Intermediate, Verified 12/09/23 09:20) itchy eyes/nasal congestion Medication List - Last Reconciled 12/09/23 by Perry Lawrence MD amlodipine 10 mg PO DAILY calcium carbonate-vitamin D3 600 mg-5 mcg (200 unit) 2 tabs PO DAILY CPAP (CPAP Machine/Device) As directed fluticasone propionate 50 mcg/actuation 2 sprays intranasal DAILY multivitamin 1 cap PO DAILY pantoprazole 40 mg PO DAILY triamcinolone acetonide 0.1% appl topical HPI Comments Details: 48-year-old female patient with a prior history of atypical ductal hyperplasia of the left breast. She was initially placed on a high risk screening protocol due to her strong family history of breast cancer. 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 She subsequently underwent a left breast lumpectomy with needle localization to remove the area of atypical ductal hyperplasia on 10/01/2021. Pathology for the lumpectomy revealed: ?Breast parenchyma with ductal papillomatosis, cystic papillary apocrine metaplasia, columnar cell subsequent pathology revealed cell changes, focal pseudoangiomatous stromal hyperplasia (PASH) and previous biopsy site changes; negative for atypia or malignancy. Genetic testing drawn on 09/16/2021 revealed no clinically significant mutations identified. 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 Her Tyrer-Cuzick breast cancer risk calculation for remaining lifetime breast cancer risk was calculated at 42.2%. A high risk breast cancer protocol was recommended. Her most recent mammogram of 07/03/2023 revealed no mammographic evidence of malignancy (BI-RADS 2). Her last breast MRI of 12/24/2022 revealed no MR specific evidence of malignancy (BI-RADS 2 bilateral). The breast MRI she is awaiting her next breast MRI at the end of this month. In general she feels well and denies any ongoing breast symptoms. 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 History of blood transfusion GERD (gastroesophageal reflux disease) Surgical History History of esophagogastroduodenoscopy (EGD) Hx of dilation and curettage H/O umbilical hernia repair (08/25/21) History of esophagogastroduodenoscopy (EGD) Hx of wisdom tooth extraction History of Family History Mother Uterine cancer, Onset Age: 45 Paternal Aunt Breast CA Maternal Aunt Breast CA Maternal Aunt Breast CA Family/Other Breast CA Family/Other Breast CA Social History Are you a primary career specialist to a significant other at home: No Do you presently have visiting nurse or other home services: No Alcohol intake: never Patient Tobacco Use Status: Never used Tobacco Sexual orientation: Straight/Heterosexual Gender identity: Female Female Reproductive History Menstrual Age of Menarche: 16 Review of Systems Const Denies chills, Denies fever(s), Denies headache(s) and Denies poor appetite ENT Denies dizziness and Denies headache(s) Card Denies chest pain, Denies rapid heart rate, Denies palpitations and Denies slow heart rate Resp Denies chest congestion, Reports cough, Denies pain on inspiration and Denies wheezing GI Reports as per HPI, Reports abdominal pain, Denies bloating, Denies change in stool character, Denies constipation, Denies diarrhea, Denies nausea, Denies vomiting and Denies hematemesis Denies nipple discharge Musc Denies back pain, Denies arthralgias, Denies joint swelling and Denies numbness Skin/Breast Denies breast swelling, Reports breast skin changes (Bruising as noted above), Denies breast pain, Denies breast mass, Denies change in breast shape, Denies change in pigmentation, Denies nipple discharge, Denies erythema and Denies rash Neuro Denies dizziness, Denies headache(s) and Denies numbness Psych Denies anxiety and Denies depression Endo Denies palpitations Pancho/Lymph Denies easy bleeding, Denies easy bruising and Denies lymphadenopathy Aller/Immun Denies wheezing Physical Exam Vital Signs: Last Vital Signs Pulse 97 12/09/23 09:23 BP 120/81 12/09/23 09:23 BMI result Body Mass Index 43.3 Const General: no acute distress and well developed Nutritional Appearance: average body habitus Orientation/consciousness: patient oriented x3 Limitations: no limitations Chest Other: Incision in the left breast at the lower inner quadrant just above the inframammary crease is clean, dry, and intact without redness or discharge. No seroma or hematoma is appreciated. No skin change, no nipple retraction, no nipple discharge, no palpable mass, no enlarged lymph nodes. Minimal tenderness is elicited with palpation in the lower quadrants. Right breast: No skin change corresponding to MRI finding, no nipple retraction, no nipple discharge, no palpable mass, no enlarged lymph nodes Chest/axillae images: 1. Incision lower left breast Resp Effort & Inspection: normal respiratory effort, no audible wheezes, Actively coughing and no respiratory distress GI Inspection: Yes normal to inspection Skin Other: Warm, dry, no rash Neuro General: patient oriented x3 Extrem Other: No edema Assessment & Plan Assessment & Plan (1) Atypical ductal hyperplasia of left breast: Code(s): N60.92 - Unspecified benign mammary dysplasia of left breast Category: Medical (2) Pseudoangiomatous stromal hyperplasia of breast: Code(s): N64.89 - Other specified disorders of breast Category: Medical (3) At high risk for breast cancer: Code(s): Z91.89 - Other specified personal risk factors, not elsewhere classified Category: Medical Plan: Plan Patient returns today for follow-up breast examination. Examination reveals no suspicious findings in either breast. She was found to have a Tyrer-Cuuc [facility] remaining lifetime risk of breast cancer of 42.2% and should continue with the high risk breast screening. I recommended continuing yearly mammogram and breast MRIs as well as twice yearly clinical breast examinations. She was also encouraged to perform monthly self examinations and call for any concerns. She will follow up in 6 months. Her next mammogram will be performed July 2024. Her annual breast MRI has been requested for December 2023. Coding Level of Care Code Est Pt Level 3 (33472) Diagnoses Atypical ductal hyperplasia of left breast N60.92 Pseudoangiomatous stromal hyperplasia of breast N64.89 At high risk for breast cancer Z91.89
[2023-12-09 09:23] VITALS: BP 120/81; PULSE 97; BMI 43.3
== END 2023-12-09 09:46 | disposition home or self-care (01) ==
PROVIDERS: PCP Internal Medicine; Visit Provider Surgery
DX: N60.92 Unspecified benign mammary dysplasia of left breast (principal); N64.89 Other specified disorders of breast; Z91.89 Other specified personal risk factors, not elsewhere classified
CPT/HCPCS: 99213

== ENCOUNTER → 2023-12-09 09:04 | Outpatient (BNVA) | payer BC, SELFPAY | PROVIDERS: PCP Internal Medicine; Visit Provider Surgery | DX: N60.92 Unspecified benign mammary dysplasia of left breast (principal); N64.89 Other specified disorders of breast; Z91.89 Other specified personal risk factors, not elsewhere classified ==

== ENCOUNTER 2023-12-30 14:04 | Outpatient (REF) | payer BC, SELFPAY ==
--- NOTE | ~2023-12-30 | MR_ITS ---
EXAMINATION: MR BREAST WITHOUT AND WITH CONTRAST, BILATERAL CLINICAL INFORMATION: High-risk screening. History of left breast atypia. COMPARISON: 12/24/2022, 08/04/2021 TECHNIQUE: Imaging was performed with a dedicated breast coil. Prior to the administration of contrast, bilateral axial T1 and bilateral axial T2 weighted sequences were obtained. After the uneventful administration of?10 mL of Gadavist, dynamic contrast-enhanced VIBRANT series through the breasts in the axial plane were performed. Subtracted images were performed and reviewed. A delayed sagittal sequence through both breasts was acquired. Additionally, CAD post-processing, including maximum intensity projections, 3-D reconstructions and kinetic analysis, were performed an independent workstation and reviewed by the interpreting radiologist is a portion of this exam. FINDINGS: Examination is somewhat limited due to motion. The patient's fibroglandular tissue demonstrates mild to moderate background enhancement. Few scattered cysts are seen within the left breast. LEFT BREAST: Stable postsurgical changes in the left breast at 6:00. No new suspicious masslike or non-masslike enhancement. Stable scattered foci of enhancement the left lower outer quadrant. Dominant focus measuring 4 mm at 4:00 CM from the nipple (image 76/111 series 100) appears stable from prior exam in 2022. No abnormal skin thickening or nipple retraction. Review of kinetic images is limited due to significant motion. RIGHT BREAST: No new suspicious masslike or non-masslike enhancement. No abnormal skin thickening or nipple retraction. Previously demonstrated enhancing dermal lesion at 7:00 is no longer visualized on this examination. Few scattered foci in the right breast are stable in comparison to 2022 delayed images. Review of kinetic images is limited due to significant motion. There is no suspicious internal mammary chain or axillary adenopathy. Limited views of the chest and abdomen are unremarkable. MR/MR breast BI wo/w con IMPRESSION: Examination is somewhat limited due to motion. No MR specific evidence of malignancy. Stable enhancing foci in the bilateral breast as described above. LEFT BREAST: BI-RADS 2 - Benign findings. RIGHT BREAST: BI-RADS 2 - Benign findings. RECOMMENDATIONS: Continued annual mammographic surveillance. Further breast MRI as risk factors dictate.
[2023-12-30] MEDS: gadobutroL 10 ML VIAL IVPUSH (15:38)
== END 2023-12-30 14:05 | disposition home or self-care (01) ==
LOC: HO.MRI 14:04
PROVIDERS: PCP Internal Medicine; Visit Provider Surgery
DX: N60.92 Unspecified benign mammary dysplasia of left breast (principal); Z91.89 Other specified personal risk factors, not elsewhere classified; N64.89 Other specified disorders of breast; Z98.890 Other specified postprocedural states
CPT/HCPCS: 77049; A9585

== ENCOUNTER 2024-01-28 06:49 | Day surgery (SDC) | payer BC, SELFPAY ==
[2024-01-26 14:47] VITALS: BMI 41.5
--- NOTE | 2024-01-27 08:46 | P.CONAN_ITS ---
Documented by User: Arlene Cowan NP 01/27/24 08:46 HPI - Anesthesia Eval Consult details Narrative: 48yo F for Colonoscopy PMFSH Active Problems Active Problems: All Active Problems Abnormal MRI, breast (Acute) Umbilical hernia (Acute) At high risk for breast cancer (Acute) Hiatal hernia (Acute) Environmental allergies (Acute) Morbid obesity (Acute) Encounter for general adult medical examination with abnormal findings (Acute) Well woman exam (Acute) Atypical ductal hyperplasia of left breast (Acute) Pseudoangiomatous stromal hyperplasia of breast (Acute) H/O umbilical hernia repair (Acute 08/25/21) Past Medical History Medical History (Updated 01/27/24 @ 06:28 by Mabel Clements) Seasonal allergies Sleep apnea Hiatal hernia COVID-19 vaccine series completed 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 History of blood transfusion GERD (gastroesophageal reflux disease) Family History Family History Mother Uterine cancer, Onset Age: 45 Paternal Aunt Breast CA Maternal Aunt Breast CA Maternal Aunt Breast CA Family/Other Breast CA Family/Other Breast CA Family history of problems with anesthesia: No Surgical History Surgical History (Updated 01/26/24 @ 14:47 by Nikki Gonzalez RN) History of lumpectomy of left breast History of esophagogastroduodenoscopy (EGD) Hx of dilation and curettage H/O umbilical hernia repair (08/25/21) History of esophagogastroduodenoscopy (EGD) Hx of wisdom tooth extraction History of History of Problems with Anesthesia: No Social History Social History Are you a primary rn care transition to a significant other at home: No Do you presently have visiting nurse or other home services: No Alcohol intake: never Patient Tobacco Use Status: Never used Tobacco Use of substances other than those prescribed or required for medical reasons: No Are you DNR?: No Advance Directives: No Advance Directives Information Provided: Yes Sexual orientation: Straight/Heterosexual Gender identity: Female Meds Allergies Allergy/AdvReac Type Severity Reaction Status Date / Time No Known Allergies Allergy Verified 01/28/24 07:34 Home Medications ?Medication ?Instructions ?Recorded ?Confirmed ?Last Taken ?Type multivitamin 1 cap PO DAILY 10/27/20 06/26/24 Unknown History pantoprazole 40 mg tablet,delayed 40 mg PO DAILY 05/28/20 01/26/24 01/28/24 06:30 History release calcium carbonate 600 mg-vitamin 2 tab PO DAILY 09/26/21 01/26/24 Unknown History D3 5 mcg (200 unit) tablet fluticasone propionate 50 2 spray intranasal DAILY 05/05/22 01/26/24 Unknown History mcg/actuation nasal spray,suspension triamcinolone acetonide 0.1 % appl topical 11/12/22 12/09/23 Unknown History topical cream CPAP (CPAP Machine/Device) 06/10/23 12/09/23 Unknown History Exam Height,Weight and Vital Signs: Height 5 ft 6 in Weight 116.573 kg Assessment and Plan Assessment Anesthesia Assessment: Chart Reviewed Final Anesthetic Review Family History of Problems with Anesthesia: No History of Problems with Anesthesia: No Documented by User: Adrián Devine MD 01/28/24 08:36 [facility] Past Medical History Medical History (Updated 01/27/24 @ 06:28 by Mabel Clements) Seasonal allergies Sleep apnea Hiatal hernia COVID-19 vaccine series completed 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 History of blood transfusion GERD (gastroesophageal reflux disease) Family History Family History Mother Uterine cancer, Onset Age: 45 Paternal Aunt Breast CA Maternal Aunt Breast CA Maternal Aunt Breast CA Family/Other Breast CA Family/Other Breast CA Surgical History Surgical History (Updated 01/26/24 @ 14:47 by Nikki Gonzalez RN) History of lumpectomy of left breast History of esophagogastroduodenoscopy (EGD) Hx of dilation and curettage H/O umbilical hernia repair (08/25/21) History of esophagogastroduodenoscopy (EGD) Hx of wisdom tooth extraction History of Social History Social History Are you a primary rn care transition to a significant other at home: No Do you presently have visiting nurse or other home services: No Alcohol intake: never Patient Tobacco Use Status: Never used Tobacco Use of substances other than those prescribed or required for medical reasons: No Are you DNR?: No Advance Directives: No Advance Directives Information Provided: Yes Sexual orientation: Straight/Heterosexual Gender identity: Female Meds Allergies Allergy/AdvReac Type Severity Reaction Status Date / Time No Known Allergies Allergy Verified 01/28/24 07:34 Home Medications ?Medication ?Instructions ?Recorded ?Confirmed ?Last Taken ?Type multivitamin 1 cap PO DAILY 05/28/20 01/26/24 Unknown History pantoprazole 40 mg tablet,delayed 40 mg PO DAILY 05/28/20 01/26/24 01/28/24 06:30 History release calcium carbonate 600 mg-vitamin 2 tab PO DAILY 09/26/21 01/26/24 Unknown History D3 5 mcg (200 unit) tablet fluticasone propionate 50 2 spray intranasal DAILY 05/05/22 01/26/24 Unknown History mcg/actuation nasal spray,suspension triamcinolone acetonide 0.1 % appl topical 11/12/22 12/09/23 Unknown History topical cream CPAP (CPAP Machine/Device) 06/10/23 12/09/23 Unknown History Exam Airway Mallampati Class: III TM Dist: >3cm Neck ROM: Full Assessment and Plan Assessment Anesthesia Assessment: Anesthesia Plan Discussed Final Anesthetic Review NPO: Yes ASA Class: III Final Preanesthetic Review: No Changes in Pt Med Stat, Meds/Allgs Chart Reviewed, Consent Obtained/Reviewed and Anes Risks/Benef Reviewed Patient Risk: Intermediate Procedure Risk: Low Anesthetic Plan Anesthetic Plan: TIVA Disposition: Standard PACU
[2024-01-28 07:42] VITALS: BP 147/84; PULSE 63; RESP 16; TEMP 36.4; O2SAT 97
[2024-01-28 07:48] LABS: UPreg QC Valid YES; Urine Pregnancy NEGATIVE (NEGATIVE)
[2024-01-28] MEDS: Lactated Ringers 1,000 ML 100 ML IVCONT (08:15)
--- NOTE | 2024-01-28 08:24 | PC.NURSE ---
24hr update documented on paper
--- NOTE | 2024-01-28 09:26 | PM.OP ---
Brief Operative Note Date of Service: 01/28/24 Pre-op diagnosis: Screening Post-op diagnosis: other (Colon polyp) Procedure: Colonoscopy to the cecum with hot snare polypectomy Surgeon: Kolby Stanton MD Anesthesia: MAC Was an Cloth Grader used for this Procedure?: No Estimated blood loss (mL): 0 Pathology: other (A. Cecal polyp) Condition: stable Disposition: PACU
[2024-01-28 09:28] VITALS: BP 132/90; PULSE 90; RESP 18; TEMP 36.1; O2SAT 98
--- NOTE | 2024-01-28 09:40 | OP_ITS ---
DATE OF SERVICE: 01/28/2024 SURGEON: Kolby Stanton MD INDICATIONS: The patient presents for evaluation of colorectal cancer screening. Full consent has been obtained from her for this, including risks of bleeding and perforation. PREOPERATIVE DIAGNOSIS: Colorectal cancer screening. POSTOPERATIVE DIAGNOSIS: PROCEDURE PERFORMED: Colonoscopy to the cecum with hot snare polypectomy. ESTIMATED BLOOD LOSS: COMPLICATIONS: ANESTHESIA: Monitored anesthesia care. ASSISTANTS: SPECIMENS: POSTOPERATIVE DIAGNOSES: Colorectal cancer screening, colon polyp, internal hemorrhoids. DESCRIPTION OF PROCEDURE: The patient was placed in the left lateral decubitus position. The digital rectal exam revealed no abnormalities. The Olympus video pediatric colonoscope was entered into the rectum and advanced easily to the cecum. Once in the cecum, I did identify cecal pouch with appendiceal orifice and a normal-appearing ileocecal valve. The entire cecum was well visualized. In the cecum, there was an approximately 10-12 mm flat, but raised polyp, which was removed by hot snare polypectomy and recovered by suction. The polypectomy site appeared clean, without any sign of residual polyp nor bleeding. The scope was then slowly withdrawn assessing all mucosal surfaces carefully. Preparation was excellent. I did not visualize any other polyps, colitis, nor angiodysplasia. In the rectum, scope was retroflexed visualizing some internal hemorrhoids, but no other pathology. The rectal mucosa appeared normal. The scope was straightened and withdrawn from the patient. She tolerated the procedure well and was returned to recovery area in stable condition. IMPRESSION: 1. Cecal polyp, status post hot snare polypectomy. 2. Internal hemorrhoids. PLAN: The results of the pathology will be checked. If this is a tubular adenoma or serrated polyp, I would recommend a repeat colonoscopy within 5 years. If it is only hyperplastic, I would recommend a followup colonoscopy in 10 years. She was advised not to use any aspirin and NSAIDs for 1 week. She will otherwise see me on a p.r.n. basis. MD TALISHA Sands/BRO / [phone]
[2024-01-28 09:43] VITALS: BP 129/87; PULSE 72; RESP 16; TEMP 36.1; O2SAT 99
[2024-01-28 09:57] VITALS: BP 133/73; PULSE 71; RESP 18; TEMP 36.1; O2SAT 100
== END 2024-01-28 10:39 | disposition home or self-care (01) ==
PROVIDERS: Nurse Practitioner; PCP Internal Medicine; Visit Provider Internal Medicine
PROC: 0DJD8ZZ Inspection of Lower Intestinal Tract, Via Natural or Artificial Opening Endoscopic (ICD-10-PCS; CPT 45378; principal; 2024-01-28 08:30)
DX: Z12.11 Encounter for screening for malignant neoplasm of colon (principal); D12.0 Benign neoplasm of cecum; K64.8 Other hemorrhoids; K21.9 Gastro-esophageal reflux disease without esophagitis; K44.9 Diaphragmatic hernia without obstruction or gangrene; G47.33 Obstructive sleep apnea (adult) (pediatric); Z99.89 Dependence on other enabling machines and devices; Z79.899 Other long term (current) drug therapy; Z98.890 Other specified postprocedural states
CPT/HCPCS: 45385; 81025; 88305; J2704

== ENCOUNTER 2024-06-27 09:04 | Outpatient (AMB) | payer BC, SELFPAY ==
--- NOTE | 2024-06-27 09:23 | A.OFFVIS_ITS ---
Vital Signs 06/27/24 09:33 Height 5 ft 6 in Weight 257 lb 6 oz BMI 41.5 BP 148/74 H Blood Pressure Location Lt brachial Position Sitting Pulse 86 Intake Visit Reasons: 6 month breast exam Intake Note: Patient is seen in office for 6 month follow up, breast exam. Patient c/o: denies any concerns regarding the breast B MRI: 12/30/23 mm sched: 07/08/24* Mason Tender Required: No Contract Administration Coordinator: Contract Administration Coordinator Present Accompanied by: Self / Same As Patient Allergies No Known Allergies Allergy (Verified 06/27/24 09:27) HPI Comments Details: 48-year-old female patient with a prior history of atypical ductal hyperplasia of the left breast. She was initially placed on a high risk screening protocol due to her strong family history of breast cancer. 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 She subsequently underwent a left breast lumpectomy with needle localization to remove the area of atypical ductal hyperplasia on 10/01/2021. Pathology for the lumpectomy revealed: ?Breast parenchyma with ductal papillomatosis, cystic papillary apocrine metaplasia, columnar cell subsequent pathology revealed cell changes, focal pseudoangiomatous stromal hyperplasia (PASH) and previous biopsy site changes; negative for atypia or malignancy. Genetic testing drawn on 09/16/2021 revealed no clinically significant mutations identified. 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 Her Tyrer-Cuzick breast cancer risk calculation for remaining lifetime breast cancer risk was calculated at 42.2%. A high risk breast cancer protocol was recommended. Her most recent mammogram of 07/03/2023 revealed no mammographic evidence of malignancy (BI-RADS 2). She is scheduled for a follow-up mammogram on 07/08/2024. MRI dated 12/30/2023 revealed no MR specific evidence of malignancy (BI-RADS 2 bilaterally). In general she feels well and denies any ongoing breast symptoms. 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 History of blood transfusion GERD (gastroesophageal reflux disease) Surgical History History of lumpectomy of left breast History of esophagogastroduodenoscopy (EGD) Hx of dilation and curettage H/O umbilical hernia repair (08/25/21) History of esophagogastroduodenoscopy (EGD) Hx of wisdom tooth extraction History of Family History Mother Uterine cancer, Onset Age: 45 Paternal Aunt Breast CA Maternal Aunt Breast CA Maternal Aunt Breast CA Family/Other Breast CA Family/Other Breast CA Social History Are you a primary primary care provider to a significant other at home: No Do you presently have visiting nurse or other home services: No Alcohol intake: never Patient Tobacco Use Status: Never used Tobacco Sexual orientation: Straight/Heterosexual Gender identity: Female Female Reproductive History Menstrual Age of Menarche: 16 Review of Systems Const Denies chills, Denies fever(s), Denies headache(s) and Denies poor appetite ENT Denies dizziness and Denies headache(s) Card Denies chest pain, Denies rapid heart rate, Denies palpitations and Denies slow heart rate Resp Denies chest congestion, Reports cough, Denies pain on inspiration and Denies wheezing GI Reports as per HPI, Reports abdominal pain, Denies bloating, Denies change in stool character, Denies constipation, Denies diarrhea, Denies nausea, Denies vomiting and Denies hematemesis Denies nipple discharge Musc Denies back pain, Denies arthralgias, Denies joint swelling and Denies numbness Skin/Breast Denies breast swelling, Reports breast skin changes (Bruising as noted above), Denies breast pain, Denies breast mass, Denies change in breast shape, Denies change in pigmentation, Denies nipple discharge, Denies erythema and Denies rash Neuro Denies dizziness, Denies headache(s) and Denies numbness Psych Denies anxiety and Denies depression Endo Denies palpitations Pancho/Lymph Denies easy bleeding, Denies easy bruising and Denies lymphadenopathy Aller/Immun Denies wheezing Physical Exam Const General: no acute distress and well developed Nutritional Appearance: average body habitus Orientation/consciousness: patient oriented x3 Limitations: no limitations Chest Other: Incision in the left breast at the lower inner quadrant just above the inframammary crease is clean, dry, and intact without redness or discharge. No seroma or hematoma is appreciated. No skin change, no nipple retraction, no nipple discharge, no palpable mass, no enlarged lymph nodes. Minimal tenderness is elicited with palpation in the lower quadrants. Right breast: No skin change corresponding to MRI finding, no nipple retraction, no nipple discharge, no palpable mass, no enlarged lymph nodes Resp Effort & Inspection: normal respiratory effort, no audible wheezes, Actively coughing and no respiratory distress GI Inspection: Yes normal to inspection Skin Other: Warm, dry, no rash Neuro Other: Mobility Assessment:6 1. 3 meter assessment time (seconds) 2. Gait observations: Normal balance and gait General: patient oriented x3 Extrem Other: No edema Assessment & Plan Assessment & Plan (1) At high risk for breast cancer: Code(s): Z91.89 - Other specified personal risk factors, not elsewhere classified Category: Medical Plan: (2) Atypical ductal hyperplasia of left breast: Code(s): N60.92 - Unspecified benign mammary dysplasia of left breast Category: Medical (3) Pseudoangiomatous stromal hyperplasia of breast: Code(s): N64.89 - Other specified disorders of breast Category: Medical Plan Patient returns today for follow-up high risk breast examination with a prior history of atypical ductal hyperplasia. Examination reveals no suspicious findings in either breast. She was found to have a Tyrer-Cuzick remaining lifetime risk of breast cancer of 42.2% and should continue with the high risk breast screening. I recommended continuing yearly mammogram and breast MRIs as well as twice yearly clinical breast examinations. She was also encouraged to perform monthly self examinations and call for any concerns. She will follow up in 6 months after her next MRI in 01/19/2025. Orders: Orders MR breast BI wo/w con 12/29/24 N60.92 - Unspecified benign mammary dysplasia of left breast, Z91.89 - Other specified personal risk factors, not elsewhere classified Coding Level of Care Code Est Pt Level 3 (92402) Diagnoses At high risk for breast cancer Z91.89 Atypical ductal hyperplasia of left breast N60.92 Pseudoangiomatous stromal hyperplasia of breast N64.89
[2024-06-27 09:33] VITALS: BP 148/74; PULSE 86; BMI 41.5
== END 2024-06-27 09:41 | disposition home or self-care (01) ==
PROVIDERS: PCP Internal Medicine; Visit Provider Surgery
DX: Z91.89 Other specified personal risk factors, not elsewhere classified (principal); N60.92 Unspecified benign mammary dysplasia of left breast; N64.89 Other specified disorders of breast
CPT/HCPCS: 99213

== ENCOUNTER 2024-07-08 09:49 | Outpatient (REF) | payer BC, SELFPAY ==
--- NOTE | ~2024-07-08 | MM_ITS ---
EXAMINATION: MM SCREENING DIGITAL BREAST TOMOSYNTHESIS, BILATERAL CLINICAL INFORMATION: Screening. Asymptomatic. COMPARISON: Mammography: Comparison is made with available priors TECHNIQUE: Digital breast mammography with tomosynthesis is performed in both the craniocaudal and mediolateral oblique views along with computer-aided detection (CAD). FINDINGS: The breasts are heterogeneously dense, which may obscure small masses (ACR BI-RADS breast composition Category c). Left marker clip from previous benign needle core biopsy. There are no significant masses, abnormal calcifications, or other abnormalities. MM/MM tomosynthesis screening BI IMPRESSION: No mammographic evidence of malignancy. ASSESSMENT: BI-RADS BI-RADS 2 - Benign Findings RECOMMENDATION: Routine annual mammography screening. 1 year F/U This examination should not preclude the clinical evaluation of a suspicious palpable abnormality. This patient's information was entered into a reminder system with a target due date for their next mammogram. Electronically signed by: Kim Kincaid DO 07/14/2024 01:12 PM NALDO
--- OUTSIDE RECORDS SUMMARY | 2024-07-12 11:45 | XMS_ITS | Continuity of Care Document ---
Author Organization [facility] Address [address] [place] [address]- Care Team Providers Care Director Strategic Account Management Name Role Phone Breanna Dye MD, V Primary Care Physician Encounter [facility] [place] Date(s): 05/31/24 - 06/30/24 [facility] [address] [place], [place] [address] Encounter Type: Triage Allergies, Adverse Reactions, Alerts Substance Criticality Severity Reaction Reaction Severity Status AmLODIPine Besylate leg nori a Amlodipine Active Immunizations Given and Recorded Vaccine Date Status Refusal Reason influenza virus vaccine, inactivated 1 05/07/22 Gi gage influenza virus vaccine, inactivated 05/12/19 Yrn rded influenza virus vaccine, inactivated 08/12/18 Yrn rded influenza virus vaccine, inactivated 05/04/17 Yrn rded influenza virus vaccine, inactivated 05/02/15 Yrn rded SARS-CoV-2 (COVID-19) mRNA BNT-162b2 vac 11/18/20 Recorded SARS-CoV-2 (COVID-19) mRNA BNT-162b2 vac 10/27/20 Recorded Measles/Mumps/Rubella Virus Vaccine 2 08/05/13 Giv en Fluarix (oldterm) 3 08/04/13 Given tetanus/diphtheria/pertussis, acel(Tdap) 4 08/04/13 Given 1Result Comment: [facility]# [id number] 2Admin Note: VIS form ( (11/20/11) given to pt. 3Admin Note: vis form 02/24/2013 given to pt 4Admin Note: vis form 12/08/12 given to pt Medications atorvastatin 10 mg oral tablet 1 tablet = 10 mg, By Mouth, Daily at bedtime, # 90 tablet, 3 Refills, Maintenance, 05/05/24 9:05:00 AM EDT, [id number], Partial fill upon patient request if the prescription is for a schedule II opioid drug., 164, cm, 04/27/24 10:50:00 EDT, Height, 116.5, kg, 04/27/24 10:45:00 EDT, Dry Weight Start Date: 05/05/24 Status: Ordered Quantity: 90.0 Unit: tablet Repeat number: 4 calcium (as carbonate and lactate)-vitamin D 200 mg-250 intl units oral tablet, chewable 2 tablet, By Mouth, 2 times a day, 0 Refills, Maintenance, 02/12/22 10:58:00 AM EDT, Partial fill upon patient request if the prescription is for a schedule II opioid drug. Start Date: 02/12/22 Status: Ordered Repeat number: 1 fluticasone 50 mcg/inh nasal spray 1 sprays = 50 mcg, Nares, Both, Daily, # 16 Gm, 6 Refills, Maintenance, 05/12/24 10:52:00 AM EDT, [place], [id number], Partial fill upon patient request if the prescription is for a schedule II opioid drug., 1 sprays Nares, Both Daily, 164, cm, 04/27/24 10:50:00 EDT, Height, 116.5, kg, 04/27/24 10:45:00 EDT, Dry Weight Start Date: 05/12/24 Status: Ordered Quantity: 16.0 Unit: g Repeat number: 7 metFORMIN 500 mg oral tablet 1 tablet = 500 mg, By Mouth, Daily at bedtime, with meals, # 90 tablet, 3 Refills, Maintenance, 05/12/24 1:44:00 PM EDT, Tablet, [id number], Partial fill upon patient request if the prescription is for a schedule II opioid drug., 164, cm, 04/27/24 10:50:00 EDT, Height, 116.5, kg, 04/27/24 10 :45:00 EDT, Dry Weight Start Date: 05/12/24 Status: Ordered Quantity: 90.0 Unit: tablet Repeat number: 4 pantoprazole 40 mg oral delayed release tablet TAKE 1 TABLET BY MOUTH EVERY DAY FOR 30 DAYS Start Date: 02/12/22 Status: Ordered Repeat number: 1 pimecrolimus topical cream 0 Refills, Maintenance, 04/26/23 11:08:00 AM EDT, Partial fill upon patient request if the prescription is for a schedule II opioid drug. Start Date: 04/26/23 Status: Ordered Repeat number: 1 ZyrTEC 10 mg oral tablet 1 tablet = 10 mg, By Mouth, Daily, # 30 tablet, 0 Refills, Maintenance, 04/26/23 11:11:00 AM EDT, Tablet, Partial fill upon patient request if the prescription is for a schedule II opioid drug. Start Date: 04/26/23 Status: Ordered Quantity: 30.0 Unit: tablet Repeat number: 1 Problem List Condition Confirmation Course Effective Dates Status Health St atus Informant Eczema Confirmed Active Stress at home Confirmed Active GERD without esophagitis Confirmed Active Hypertension Confirmed Active Mild major depression Confirmed Active ZEESHAN on CPAP Confirmed Active Health care maintenance Confirmed Active Allergic rhinitis Confirmed Active Severe obesity Confirmed Active Social History Social History Type Response Smoking Status Never (less than 100 in lifetime) entered on: 02/12/22 Sex Sex Representation Female (finding) Patient Care team information Care Team Personnel Name: Breanna Dye MD, V Position: [facility] Physician - Primary Care Member Role: PCP Address: [address] [place] [address] Telecom: Care Team Related Persons Name: FAY MCNAIR Name: MARIE MCKINNEY Name: LORENA BAILEY Insurance Providers Guarantor name: KAREN Health Plan Information #: 1 Payer: [employer] Member Number: NA Policy Number: NA Group Number: NA
--- OUTSIDE RECORDS SUMMARY | 2024-07-12 11:45 | XMS_ITS | Continuity of Care Document ---
Author Organization [facility] Address [address] [place] [address]- Care Team Providers Care Linter Drier Operator Name Role Phone Breanna Dye MD, V Primary Care Physician Encounter [facility] Date(s): 05/12/24 - 06/11/24 [facility] [address], [place] [address] Allergies, Adverse Reactions, Alerts Substance Reaction Severity Status AmLODIPine Besylate leg edema Amlodipine Active Immunizations Given and Recorded Vaccine [...] tetanus/diphtheria/pertussis, acel(Tdap) 4 08/04/13 Given 1Result Comment: [facility]# [id number] 2Admin Note: VIS form ( (11/20/11) given to pt. 3Admin Note: vis form 02/24/2013 given to pt 4Admin Note: vis form 12/08/12 given to pt Medications atorvastatin 10 mg oral tablet 1 tablet = 10 mg, By Mouth, Daily at bedtime, # 90 tablet, 3 Refills, Maintenance, 05/05/24 9:05:00EDT, [facility]/pharmacy #[id number], Partial fill upon patient request if the prescription is for a schedule IIopioid drug., 164, cm, 04/27/24 10:50:00 EDT, Heigh... Start Date: 05/05/24 Status: Ordered calcium (as carbonate and lactate)-vitamin D 200 mg-250 intl units oral tablet, chewable 2 tablet, By Mouth, 2 times a day, 0 Refills, Maintenance, 02/12/22 10:58:00 EDT, Partial fill uponpatient request if the prescription is for a schedule II opioid drug. Start Date: 02/12/22 Status: Ordered fluticasone 50 mcg/inh nasal spray 1 sprays = 50 mcg, Nares, Both, Daily, # 16 Gm, 6 Refills, Maintenance, 05/12/24 10:52:00 EDT, Nasal [place], [facility]/pharmacy #[id number], Partial fill upon patient request if the prescription is for a scheduleII opioid drug., 1 sprays Nares, Both Daily, 164, c... Start Date: 05/12/24 Status: Ordered metFORMIN 500 mg oral tablet 1 tablet = 500 mg, By Mouth, Daily at bedtime, with meals, # 90 tablet, 3 Refills, Maintenance, 05/12/24 13:44:00 EDT, Tablet, [facility]/pharmacy #[id number], Partial fill upon patient request if the prescription is for a schedule II opioid drug., 164, cm, ... Start Date: 05/12/24 Status: Ordered pantoprazole 40 mg oral delayed release tablet TAKE 1 TABLET BY MOUTH EVERY DAY FOR 30 DAYS Start Date: 02/12/22 Status: Ordered pimecrolimus topical cream 0 Refills, Maintenance, 04/26/23 11:08:00 EDT, Partial fill upon patient request if the prescription is for a schedule II opioid drug. Start Date: 04/26/23 Status: Ordered ZyrTEC 10 mg oral tablet 1 tablet = 10 mg, By Mouth, Daily, # 30 tablet, 0 Refills, Maintenance, 04/26/23 11:11:00 EDT, Tablet, Partial fill upon patient request if the prescription is for a schedule II opioid drug. Start Date: 04/26/23 Status: Ordered Problem List Condition Confirmation Course Effective Dates [...] 100 in lifetime) entered on: 02/12/22 Sex Patient Care team information Care Team Personnel Name: Breanna Dye MD, V Position: [facility] Physician - Primary Care Member Role: PCP Address: Address: [address] [place] [address]- Care Team Related Persons Name: FAY MCNAIR Address: home [address] [place] [address] Name: MARIE MCKINNEY Address: home [address] [place] [address] Name: LORENA BAILEY Address: home [address] [place] [address]
--- OUTSIDE RECORDS SUMMARY | 2024-07-12 11:45 | XMS_ITS ---
Author Name [facility] Organization Unknown Immunizations Vaccine Date Source Lot Number Status Tdap 08/04/2013 [facility] [id number] completed Influenza, unspecified formulation 08/04/2013 [facility] 3 [id number] completed MMR [id number] Influenza, trivalent, inject able, contains preservative 08/12/2018 [facility] [id number] completed Influenza, trivalent, inject able, contains preservative 05/12/2019 [facility] [id number] completed Influenza, trivalent, inject able, contains preservative 05/04/2017 [facility] [id number] completed Influenza, trivalent, inject able, contains preservative 05/07/2022 [facility] [id number] completed Influenza, trivalent, inject able, contains preservative 05/02/2015 [facility] [id number] completed
--- OUTSIDE RECORDS SUMMARY | 2024-07-12 11:45 | XMS_ITS | Continuity of Care Document ---
Author Organization [facility] Address [address] [place] [address]- Care Team Providers Care Retail Merchandising Manager Name Role Phone Breanna Dye MD, V Primary Care Physician [phone] Encounter [facility] Date(s): 05/12/24 - 06/11/24 [facility] [address] [place], [place] [address] Allergies, Adverse Reactions, Alerts Substance Reaction Severity [...] tetanus/diphtheria/pertussis, acel(Tdap) 4 08/04/13 Given 1Result Comment: [facility]# [id number] 2Admin Note: VIS form ( (11/20/11) given to pt. 3Admin Note: vis form 02/24/2013 given to pt 4Admin Note: vis form 12/08/12 given to pt Medications atorvastatin 10 mg oral tablet 1 tablet = 10 mg, By Mouth, Daily at bedtime, # 90 tablet, 3 Refills, Maintenance, 05/05/24 9:05:00EDT, [facility]/pharmacy #[id number], Partial fill upon patient request [...] 6 Refills, Maintenance, 05/12/24 10:52:00 EDT, Nasal [place], [facility]/pharmacy #[id number], Partial fill upon patient request if the prescription is for a scheduleII opioid drug., 1 sprays Nares, Both Daily, 164, c... Start Date: 05/12/24 Status: Ordered metFORMIN 500 mg oral tablet 1 tablet = 500 mg, By Mouth, Daily at bedtime, with meals, # 90 tablet, 3 Refills, Maintenance, 05/12/24 13:44:00 EDT, Tablet, [facility]/pharmacy #[id number], Partial fill upon patient request [...] Personnel Name: Breanna Dye MD, V Position: [facility] Physician - Primary Care Member Role: PCP Address: Address: [address] [place] [address]- Care Team Related Persons Name: FAY MCNAIR Address: home [address] [place] [address] Name: MARIE MCKINNEY Address: [address] [place] [address] Name: LORENA BAILEY Address: [address] [place] [address]
--- OUTSIDE RECORDS SUMMARY | 2024-07-12 11:45 | XMS_ITS | Continuity of Care Document ---
Author Organization [facility] Address [address] [place] [address]- Care Team Providers Care General Ledger Bookkeeper Name Role Phone Breanna Dye MD, V Primary Care Physician Encounter [facility] Date(s): 05/12/24 - 06/11/24 [facility] [address] [place], [place] [address] Allergies, Adverse Reactions, Alerts Substance Reaction Severity [...] tetanus/diphtheria/pertussis, acel(Tdap) 4 08/04/13 Given 1Result Comment: [facility]# [id number] 2Admin Note: VIS form ( (11/20/11) given to pt. 3Admin Note: vis form 02/24/2013 given to pt 4Admin Note: vis form 12/08/12 given to pt Medications atorvastatin 10 mg oral tablet 1 tablet = 10 mg, By Mouth, Daily at bedtime, # 90 tablet, 3 Refills, Maintenance, 05/05/24 9:05:00EDT, [facility]/pharmacy #[id number], Partial fill upon patient request if [...] 6 Refills, Maintenance, 05/12/24 10:52:00 EDT, Nasal [place], [facility]/pharmacy #[id number], Partial fill upon patient request if the prescription is for a scheduleII opioid drug., 1 sprays Nares, Both Daily, 164, c... Start Date: 05/12/24 Status: Ordered metFORMIN 500 mg oral tablet 1 tablet = 500 mg, By Mouth, Daily at bedtime, with meals, # 90 tablet, 3 Refills, Maintenance, 05/12/24 13:44:00 EDT, Tablet, [facility]/pharmacy #[id number], Partial fill upon patient request if [...] Care team information Care Team Personnel Name: Hardik WOOD, Breanna Agrawal Position: [facility] Physician - Primary Care Member Role: PCP Address: Address: [address] [place] [address]- Care Team Related Persons Name: FAY MCNAIR Address: home [address] [place] [address] Name: MARIE MCKINNEY Address: [address] [place] [address] Name: LORENA BAILEY Address: home [address] [place] [address]
--- OUTSIDE RECORDS SUMMARY | 2024-07-12 11:45 | XMS_ITS ---
Author Organization [facility] Address [address] [place] [address] Care Team Providers Care Soda Fountain Manager Name Role Phone Breanna LOPEZ Primary Care Provider Kolby Bergman [phone] REASON FOR VISIT screening Encounters Encounter Location Date Provider Diagnosis [facility] Outpatient [address] [place] [phone] 01/28/2024 Kolby Stanton Encounter for scre ening colonoscopy Z12.11 ; Colon polyps K63.5 and Other hemorrhoids K64.8 ASSESSMENTS Encounter Date Diagnosis Assessment Notes Treatment Notes Treatment Clinical Notes 01/28/2024 Encounter for screening colonoscopy (ICD-10 - Z12.11) 01/28/2024 Colon polyps (ICD-10 - K63.5) 01/28/2024 Other hemorrhoids (ICD-10 - K64.8) PLAN OF TREATMENT No Information
--- OUTSIDE RECORDS SUMMARY | 2024-07-12 11:45 | XMS_ITS | Continuity of Care Document ---
Author Organization [facility] Address [address] [place] [address]- Care Team Providers Care Angiography Nurse Name Role Phone Breanna Dye MD, V Primary Care Physician [place] [facility] [place](s): 05/31/24 - 06/30/24 [facility] [address] [place], [place] [address] Encounter Type: Triage Allergies, Adverse Reactions, Alerts [...] tetanus/diphtheria/pertussis, acel(Tdap) 4 08/04/13 Given 1Result Comment: [facility]# [id number] 2Admin Note: VIS form ( (11/20/11) given [...] Refills, Maintenance, 05/12/24 10:52:00 AM EDT, Nasal [place], [facility]pharmacy #[id number], Partial fill upon patient request [...] Personnel Name: Breanna Dye MD, V Position: [facility] Physician - Primary Care Member Role: PCP Address: [address] [place] [address] Telecom: Care Team Related Persons Name: FAY MCNAIR Name: MARIE MCKINNEY Name: LORENA BAILEY Insurance Providers Guarantor name: KAREN Health Plan Information #: 1 Payer: [employer] Member Number: NA Policy Number: NA Group Number: NA
--- OUTSIDE RECORDS SUMMARY | 2024-07-12 11:45 | XMS_ITS | Patient Health Record ---
Author Organization [facility] Address [address] [place] [address] Care Team Providers Care Air Carrier Inspector Name Role Phone Breanna LOPEZ Primary Care Provider Kolby Bergman [phone] ALLERGIES Allergen (clinical drug ingredient) Drug/Non Drug Allergy documented on EMR Reaction Allergy Type Onset Date Status seasonal (uncoded) Unknown Allergy A ctive RESULTS Component Value Reference Range Notes Pathology (Not yet reviewed by provider) Interpretation: Performing Lab:[facility], [address] [place] [id number] Notes/Report: Ur Preg Test Reviewed date:01/28/2024 03:44:59 PM Interpretation: Performing Lab:[facility], [address] [place] [phone] Notes/Report: Urine NEGATIVE NEGATIVE This test was developed to detect early . False negative results may occur after the 5th - 7th week of when using this test method. If clinically indicated, consider a serum hCG. REASON FOR REFERRAL No Information MEDICATIONS Medication SIG (Take, Route, Frequency, Duration) Notes Start Date End Date Status Multi Vitamin - 1 tablet Orally Once a day for 30 day(s) Active Pantoprazole Sodium 40 MG TAKE 1 TABLET BY MOUTH EVERY DAY FOR 30 DAYS for 90 Active IMMUNIZATIONS Vaccine Route Administration Date Status Comme nts Influenza Unknown 05/09/2020 Administered Influenza Unknown 04/20/2023 Administered SOCIAL HISTORY Tobacco Use: Social History Observation Description Date Details (start date - stop date) Never Smoker NA - NA Sex Assigned At : Social History Observation Description Sex Assigned At Unknown Tobacco Use/Smoking Question Answer Notes Patient is a nonsmoker Alcohol Screen Question Answer Notes Did you have a drink contain ing alcohol in the past year? Yes How often did you have a dri nk containing alcohol in the past year? Monthly or less (1 point) How many drinks did you have on a typical day when you were drinking in the past year? 1 or 2 drinks (0 point) How often did you have 6 or more drinks on one occasion in the past year? Never (0 point) Points 1 Interpretation Negative PROBLEMS Problem Type ICD Code Onset Dates Problem Status W/U Status Risk SNOMED Code Notes Problem Gastroesophageal reflux disease without esophagitis (K21.9) Active confirmed 564489950 Problem Eosinophilic esophagitis (K20.0) Active confirmed 002546680 Problem Esophageal ring (K22.2) Active confirmed 011479246 Problem Gastroesophageal reflux disease, unspecified whether esophagitis present (K21.9) Active confirmed 615755993 Problem Hiatal hernia (K44.9) Active confirmed 87366534 Problem Gastric polyp (K31.7) Active confirmed Gastric polyp (08490572) Problem Gastroesophageal reflux (K21.9) Active confirmed Esophageal re flux finding (852157622) Problem Colon cancer screening (Z12.11) Active confirmed Colon can cer screening (667716012) Problem Chronic GERD (K21.9) Active confirmed Gastroesophagea l reflux disease (230299157) VITAL SIGNS Temperature 97.7 degrees Fahrenheit 10/20/2023 Blood pressure diastolic 00 mm Hg 10/20/2023 Height 66 in 10/20/2023 Blood pressure systolic 000 mm Hg 10/20/2023 Weight 257 lbs 10/20/2023 BMI 41.48 kg/m2 10/20/2023 Encounters Encounter Location Date Provider Diagnosis [facility] [address] [place], [place] [id number] 01/28/2024 Kolby Stanton Encounter for screening colonoscopy Z12.11 ; Colon polyps K63.5 and Other hemorrhoids K64.8 [facility] [address] [place] [address] 10/20/2023 Kolby Stanton Colon cancer screening Z12.11 and Chronic GERD K21.9 [facility] [address] [place] [address] 12/20/2023 Kolby Stanton [facility] [address] [place] [address] 03/17/2024 Kolby Stanton ASSESSMENTS Encounter Date Diagnosis Assessment Notes Treatment Notes Treatment Clinical Notes 01/28/2024 Encounter for screening colonoscopy (ICD-10 - Z12.11) 01/28/2024 Colon polyps (ICD-10 - K63.5) 10/20/2023 Colon cancer screening (ICD-10 - Z12.11) 10/20/2023 Chronic GERD (ICD-10 - K21.9) 01/28/2024 Other hemorrhoids (ICD-10 - K64.8) PLAN OF TREATMENT Pending Test Test Name Order Date Pathology 01/28/2024 Future Test Test Name Order Date UPPER GI ENDOSCOPY 05/15/2021 COLONOSCOPY 10/20/2023 Insurance Providers Payer Name Payer Address Payer Phone Subscriber Number Group Number Insured Name Patient Relationship to Insured Coverage Start Date Coverage End Date [employer] [address] [place] [phone] [id number] KING SONAL Self - patient is the insured MEDICAL (GENERAL) HISTORY Medical History History ICD Code Denies AR,DM,CVA,Lung disease,renal dise ase EGD in 2005 when she present ed with an esophageal obstruction from a pill stuck in the esophagus--this revealed proximal esophageal rings, a moderate-sized hiatal hernia, and proximal esophageal biopsies that were inconclusive for eosinophilic esophagitis Sleep apnea--uses CPAP EGD 06/2021 with a small HH, but no sig. esophagitis, EoE, nor Narayanan's Surgical History Surgery Date(Month/Year) 2013 Umbilical hernia surgery-Dr. Lawrence Left breast [id number]. Mazzuc co
--- OUTSIDE RECORDS SUMMARY | 2024-07-12 11:45 | XMS_ITS ---
Author Organization [facility] Address [address] [place] [address] Care Team Providers Care Underbaster Name Role Phone Breanna LOPEZ Primary Care Provider Kolby Bergman [phone] REASON FOR VISIT pantoprazole / fyi Encounters Encounter Location Date Provider Diagnosis [facility] [address] [place] [address] 03/17/2024 Kolby Stanton PLAN OF TREATMENT No Information
--- OUTSIDE RECORDS SUMMARY | 2024-07-12 11:45 | XMS_ITS ---
Author Organization [facility] Address [address] [place] [address] Care Team Providers Care Principal Automation Engineer Name Role Phone Clinton LOPEZia Primary Care Provider Kolby Bergman [phone] REASON FOR VISIT prior authorization Encounters Encounter Location Date Provider Diagnosis [facility] [address] [place] [address] 12/20/2023 Kolby Stanton PLAN OF TREATMENT No Information
== END 2024-07-08 09:50 | disposition home or self-care (01) ==
LOC: HO.MAMMO 09:49
PROVIDERS: PCP Internal Medicine; Visit Provider Internal Medicine
DX: Z12.31 Encounter for screening mammogram for malignant neoplasm of breast (principal)
CPT/HCPCS: 77063; 77067

== ENCOUNTER → 2024-07-08 10:00 | Outpatient (BNV) | payer BC, SELFPAY | PROVIDERS: PCP Internal Medicine; Visit Provider Internal Medicine | DX: Z12.31 Encounter for screening mammogram for malignant neoplasm of breast (principal) | CPT/HCPCS: 77063; 77067 ==

== ENCOUNTER 2024-10-04 09:02 | Outpatient (AMB) | payer BC, SELFPAY ==
[2024-10-04 09:27] VITALS: BP 130/84; BMI 41.5
--- NOTE | 2024-10-04 09:27 | MHC.OFFVIS ---
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 Complaining of left-sided pelvic pain no associated urinary or GI symptoms no vaginal discharge or abnormal bleeding, no fever or chills , no nausea or vomiting. Last Pap/HPV was negative in 07/22 Last Mammogram was BI-RADS 2 in 07/25, last breast MRI in 12/23 was BI-RADS 2, the patient is high-risk for breast cancer [facility] remaining lifetime risk of breast cancer of 42.2% and is being followed up by Dr. 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 History of blood transfusion GERD (gastroesophageal reflux disease) Surgical History History of lumpectomy of left breast History of esophagogastroduodenoscopy (EGD) Hx of dilation and curettage H/O umbilical hernia repair (08/25/21) History of esophagogastroduodenoscopy (EGD) Hx of wisdom tooth extraction History of Family History Mother Uterine cancer, Onset Age: 45 Paternal Aunt Breast CA Maternal Aunt Breast CA Maternal Aunt Breast CA Family/Other Breast CA Family/Other Breast CA Social History Are you a primary healthcare management consultant to a significant other at home: No Do you presently have visiting nurse or other home services: No Alcohol intake: never Patient Tobacco Use Status: Never used Tobacco Sexual orientation: Straight/Heterosexual Gender identity: Female Female Reproductive History Menstrual Age of Menarche: 16 Date of last pap smear: 07/03/21 Date of Mammogram: 07/08/24 Review of Systems Const All systems reviewed & are unremarkable except as noted in HPI and below Card Reports as per HPI Resp Reports as per HPI GI Reports as per HPI and Reports no additional complaints Reports as per HPI Physical Exam Vital Signs: Last Vital Signs BP 130/84 10/04/24 09:27 BMI result Body Mass Index 41.5 Const General: cooperative, healthy appearing and comfortable Chest Chest palpation & inspection: normal inspection of the chest and normal palpation of entire chest wall Breast/axilla inspection: normal inspection of the breasts and normal inspection of the axillae Breast/axilla palpation: normal palpation of the breasts, normal palpation of the axillae and no axillary lymphadenopathy Resp Effort & Inspection: normal respiratory effort Auscultation: clear to auscultation bilaterally Percussion: percussion normal Cardio Palpation: normal PMI Rate: regular rate Rhythm: regular rhythm Heart sounds: no murmurs and no rubs Peripheral pulses: Peripheral pulses 2+ throughout GI Inspection: Yes normal to inspection Palpation (GI): Soft to palpation, nontender, no guarding, not rigid and No hepatosplenomegaly present Percussion: Yes normal to percussion Auscultation: normal bowel sounds Rectal Exam - Female: deferred General: Yes bladder normal to palpation External Female Exam: No lesion Speculum Exam - Vagina: normal appearance of the vagina, normal palpation, normal vaginal discharge and not erythematous Speculum Exam - Cervix: normal appearance of the cervix and normal palpation Bimanual exam- vagina & uterus: normal bimanual exam, normal palpation, uterine size normal, bladder normal to palpation, consistency normal and normal palpation Bimanual Exam- Adnexa, other: normal adnexae, no masses and no tenderness Assessment & Plan Assessment & Plan (1) Well woman exam: Code(s): Z01.419 - Encounter for gynecological examination (general) (routine) without abnormal findings Category: Medical Plan: Cotesting not indicated this year. Instructions given to patient to schedule next screening Mammogram in 07/26. Counseled the patient about the recommended dietary allowance of 1000 mg of Calcium & 600 IU of vitamin D. The patient was instructed to perform monthly self-breast exams and to schedule an annual exam in a year; All questions answered and the patient verbalized understanding. Instructed the patient to schedule annual exam in a year (2) At high risk for breast cancer: Code(s): Z91.89 - Other specified personal risk factors, not elsewhere classified Category: Medical Plan: Discussed with the patient her increased risk for Breast ca. The lifetime risk of breast cancer based on the Tyrer-Cuzick Model is 42% Recommended Intensification of breast Cancer screening with annual MRI breast in addition to annual mammogram and MRI alternating every 6 months. Mammogram done recently in 07/25 , Breast MRI ordered The patient is being followed up by Dr Lawrence, instructions given the patient is schedule a follow-up appointment All questions answered, the patient verbalized understanding and agreed with the plan (3) Pelvic pain: Code(s): R10.2 - Pelvic and perineal pain Category: Medical Plan: Urine dip and test done in the office were both negative. GC and chlamydia taken and pelvic ultrasound ordered. Discussed with the patient the differential diagnosis of pelvic pain including but not limited to adnexal, uterine masses, pelvic infections (PID), GI the (Irritable bowel syndrome, diverticulitis, others), musculoskeletal, myofascial pain abdominal wall , adhesions, endometriosis, psychological and others causes. Will check results and treat accordingly. All questions answered, the patient verbalized understanding. Instructed the patient to schedule an ultrasound and a follow-up appointment in 2 weeks. All questions answered, the patient verbalized understanding and agreed with the plan. Orders: Orders MR breast BI wo/w con Today Z80.3 - Family history of malignant neoplasm of breast US pelvic and transvaginal Today R10.2 - Pelvic and perineal pain Coding Level of Care Code Est Pt Level 3 (48938) Est Pt Prev Care 40-64y(96557) Diagnoses Well woman exam Z01.419 At high risk for breast cancer Z91.89 Pelvic pain R10.2
--- OUTSIDE RECORDS SUMMARY | 2024-10-04 09:53 | XMS_ITS | Encounter Summary ---
Author Organization [facility] Address [address] [place] [address] Care Team Providers Care Shotblaster Name Role Phone Unavailable Primary Care Provider [...] malleoli and lateral surface of the talus. ??The appearance is most consistent with old as opposed to acute avulsion fractures. Anatomic alignment of the ankle mortise joint. ??Periarticular soft tissue swelling. Moderate-sized posterior heel spur. CONCLUSION: Chronic appearing avulsion fractures. Posttraumatic periarticular soft tissue swelling. Heel spur. Report reviewed and signed by : Dr. Ronny Graves MD on 05/24/2024 11:33 AM. Workstation Name - [id number] Procedure Note Ronny Graves MD - 09/28/2024 [...] MD on 05/24/2024 11:33AM. Workstation Name - [id number] Ari [facility] IMG XR PROCEDURES Final Result documented in this encounter Visit Diagnoses Diagnosis History of falling Pain in left ankle and joints of left foot documented in this encounter
--- OUTSIDE RECORDS SUMMARY | 2024-10-04 09:53 | XMS_ITS ---
Author Organization [facility] Address [address] [place] [address] Care Team Providers Care Head Waiter/Waitress Name Role Phone Breanna LOPEZ Primary Care Provider Kolby Bergman [phone] REASON FOR VISIT screening Encounters Encounter Location Date Provider Diagnosis [facility] [place] [address] [place] [id number] 01/28/2024 Kolby Stanton Encounter for scre ening colonoscopy Z12.11 ; Colon polyps K63.5 and Other hemorrhoids K64.8 Assessments Encounter Date Diagnosis (ICD Code) Assessment Notes Treatment Notes Treatment Clinical Notes Section Notes 01/28/2024 Encounter for screening colonoscopy (ICD-10 - Z12.11) 01/28/2024 Colon polyps (ICD-10 - K63.5) 01/28/2024 Other hemorrhoids (ICD-10 - K64.8) Plan Of Treatment No Information Progress Notes * ROMÁN MCNAIR:1975 ( 48 yo F)Acc No.[id number]:01/28/2024 COLON WITH MAC Patient:?BALDEV MCNAIRA Provider:?Kolby Stanton MD :1975???Age:48 Y???Sex:Female D ate:01/28/2024 Address: [address] [facility] Pcp:Breanna LOPEZ Subjective: * Chief Complaints: * ???1. Screening. * Medical History:? Objective: * Vitals:? Assessment: * Assessment: 1.?Encounter for screening c olonoscopy - Z12.11 (Primary)???2.?Colon polyps - K63.5???3.?Other hemorrhoids - K64.8??? Plan: * Treatment: * Procedure Codes:?50543 LESIO N REMOVAL COLONOSCOPY, Modifiers: PT * * The named appointment provid er may or may not be the originator of this progress note, and it is not deemed complete until electronically signed by the appointment provider. Sign off status: Pending * Provider:?Kolby Stanton MD Date:? 024 Generated for Ashlyn reeves/Germain/Kamsmitting on:?10/04/2024 09:52 AM EST
--- OUTSIDE RECORDS SUMMARY | 2024-10-04 09:53 | XMS_ITS | Clinical Summary ---
Author Organization [address] Address [address] [place] [address] Care Team Providers Care Structural Analyst Name Role Phone Unavailable Primary Care Provider Unavailabl e Allergies Active Allergy Reactions Criticality Noted Date Comments Amlodipine Besylate Edema 05/24/2024 Medications atorvastatin (LIPITOR) 10 mg tablet Take 1 tablet (10 mg total) by mouth at bedtime. 05/05/2024 Active fluticasone propionate (FLONASE) 50 mcg/actuation nasal spray USE ONE SPRAY IN BOTH NOSTRILS DAILY. Active ketoconazole (NIZORAL) 2 % shampoo APPLY SHAMPOO AND FACE WASH TWICE A WEEK 04/13/2024 Active metFORMIN (GLUCOPHAGE) 500 mg Immediate Release tablet 1 TABLET BY MOUTH DAILY WITH MEAL 05/12/2024 Active pantoprazole (PROTONIX) 40 mg tablet Take 1 tablet (40 mg total) by mouth daily. 03/17/2024 Active dicyclomine (BENTYL) 20 mg tablet Take 1 tablet (20 mg total) by mouth every 6 (six) hours for 5 days. 20 tablet 06/01/2024 Active Active Problems Problem Noted Date Diagnosed Date Injury of left ankle, initial encounter 05/24/20 24 GERD without esophagitis 04/27/2024 Hypertension 04/27/2024 Immunizations Name Administration Dates Next Due Influenza, trivalent, inject able, contains preservative 05/07/2022,05/12/2019,08/12/2018,2016,05/02/2015 Influenza, unspecified formulation 08/04/2013 MMR 08/05/2013 Tdap 08/04/2013 Family History Relation Name Status Comments Father Mother Social History Tobacco Use Types Packs/Day Years Used Date Smoking Tobacco: Never Smokeless Tobacco: Never Tobacco Cessation:Counseling Given: Not Answered Alcohol Use Standard Drinks/Week Comments Never 0 (1 standard drink = 0.6 oz pur e alcohol) Comments Unknown Sex and Gender Information Value Date Recorded Sex Assigned at Not on file Legal Sex Female 8:24 AM EDT Gender Identity Not on file Sexual Orientation Not on file Last Filed Vital Signs Vital Sign Reading Time Taken Comments Blood Pressure 114/73 06/01/2024 1:50 PM EDT Pulse 82 06/01/2024 1:50 PM EDT Temperature 36.7 ??C (98.1 ??F) 06/01/2024 1:50 PM ED T Respiratory Rate 16 06/01/2024 1:50 PM EDT Oxygen Saturation 98% 06/01/2024 1:50 PM EDT Inhaled Oxygen Concentration - - Weight 114.8 kg (253 lb) 06/01/2024 1:50 PM EDT Height 165.1 cm (5' 5 ) 06/01/2024 1:50 PM EDT Body Mass Index 42.1 06/01/2024 1:50 PM EDT Plan of Treatment Health Maintenance Due Date Last Done Comments HIV screening 1990 Diabetes screening 11/28/1995 Hepatitis C screening 11/28/1995 Cervical cancer screening 1998 Breast cancer screening 2017 Lipid disorder screening 2017 Colon cancer screening, Colonoscopy 2022 Tetanus adult (Td q 10,TDAP once) 08/04/2023 08/04/2013 Influenza vaccine 03/02/2024 05/07/2022, , 08/12/2018, Additional history exists Covid-19 vaccine series ( season) 2024 11/18/2020, 10/27/2020 RSV Discussion (1 - 1-dose 75+ series) 2052 Meningococcal Vaccine Aged Out No tyler norma eligible based on patient's age to complete this topic Pneumococcal Vaccine (2 - 49 years) Aged Out No longer eligible based on patient's age to complete this topic Insurance
--- OUTSIDE RECORDS SUMMARY | 2024-10-04 09:53 | XMS_ITS | Clinical Summary ---
Author Organization [facility] Address [address] [place] [address] Care Team Providers Care Territory Service Representative Name Role Phone Unavailable Primary Care Provider Unavailabl e Immunizations Name Administration Dates Next Due Pfizer SARS-CoV-2 COVID-19, mRNA, LNP-S, preservative free 11/18/2020,10/27/2020 Social History Tobacco Use Types Packs/Day Years Used Date Smoking Tobacco: Never Assessed Comments Unknown Sex and Gender Information Value Date Recorded Sex Assigned at Not on file Legal Sex Female 10:44 AM EDT Gender Identity Not on file Sexual Orientation Not on file Plan of Treatment Health Maintenance Due Date Last Done Comments Breast Cancer Screening 1977 DTaP,Tdap,and Td Vaccines (1 - Tdap) 1996 Hepatitis B Vaccines (1 of 3 - 19+ 3-dose series) 1996 Cervical Cancer Screening: P ap Smear 1998 COVID-19 Vaccine ( - 2023-2 5 season) 2024 11/18/2020, 10/27/2020 Influenza Vaccine (#1) 2024 Colorectal Cancer Screening: Colonoscopy 05/24/2024 Depression Screening 05/24/2024 HIV Screening 05/24/2024 Hepatitis C Screening 05/24/2024 Social Influencers of Health Screening 05/24/2024 HIB Vaccines Aged Out No longer eligi ble based on patient's age to complete this topic HPV Vaccines Aged Out No longer eligi ble based on patient's age to complete this topic Hepatitis A Vaccines Aged Out No long er eligible based on patient's age to complete this topic IPV Vaccines Aged Out No longer eligi ble based on patient's age to complete this topic MMR Vaccines Aged Out No longer eligi ble based on patient's age to complete this topic Meningococcal ACWY Vaccine Aged Out N o longer eligible based on patient's age to complete this topic Meningococcal B Vacine Aged Out No lo nger eligible based on patient's age to complete this topic Pneumococcal Vaccine: Pediatrics (0 to 5 Years) and At-Risk Patients (6 to 64 Years) Aged Out No longer eligible b ased on patient's age to complete this topic RSV Immunization Patients Under 20 months Aged Out No longer eligible b ased on patient's age to complete this topic Varicella Vaccines Aged Out No longer eligible based on patient's age to complete this topic
--- OUTSIDE RECORDS SUMMARY | 2024-10-04 09:53 | XMS_ITS ---
Author Organization [facility] Address [address] [place] [address] Care Team Providers Care Insurance Rater Name Role Phone JESSICA Breanna Primary Care Provider Kolby Bergman [phone] REASON FOR VISIT prior authorization Encounters Encounter Location Date Provider Diagnosis [facility] [address] [place] [address] 12/20/2023 Kolby Stanton Plan Of Treatment No Information Progress Notes * ROMÁN MCNAIR:1975 ( 48 yo F)Acc No.[id number]:12/20/2023 Patient:?SONAL MCNAIR :1975???Age:48 Y???Sex:Female Address: [address] [address] * true * Date:? Generated for Angiei leandro/Germain/eTransmitting on:?10/04/2024 09:52 AM EST
--- OUTSIDE RECORDS SUMMARY | 2024-10-04 09:53 | XMS_ITS | Clinical Summary ---
Author Organization [facility] Address [address] [place] [address] Care Team Providers Care Strike Warfare/Missile Systems Officer Name Role Phone Unavailable Primary Care Provider Unavailabl e Social History Tobacco Use Types Packs/Day Years Used Date Smoking Tobacco: Never Assessed Sex and Gender Information Value Date Recorded Sex Assigned at Not on file Gender Identity Not on file Sexual Orientation Not on file Job Start Date Occupation Industry Not on file Not on file Not on file Plan of Treatment Health Maintenance Due Date Last Done Comments Hepatitis B Vaccines (1 of 3 - 3-dose series) 1977 Hepatitis C Screening 1977 Depression Screening 1989 Preventative Health Evaluation 11/28/1995 Cervical Cancer Screening (Pap Smear) 1998 Colon Cancer Screening (Colonoscopy) 2022 DTap / Tdap / Td (2 - Td or Tdap) 08/04/2023 08/04/2013 COVID-19 Vaccine ( season) 2024 11/18/2020, 10/27/2020 Influenza Vaccine (#1) 2024 2, 05/12/2019, 08/12/2018, Additional history exists Pneumococcal Vaccine Aged Out No long er eligible based on patient's age to complete this topic RSV Ped < 20 months Aged Out No longe r eligible based on patient's age to complete this topic
--- OUTSIDE RECORDS SUMMARY | 2024-10-04 09:53 | XMS_ITS ---
Author Organization [facility] Address [address] [place] [address] Care Team Providers Care Screen Printing Cloth Spreader Name Role Phone JESSICA Breanna Primary Care Provider Kolby Bergman [phone] REASON FOR VISIT pantoprazole / fyi Encounters Encounter Location Date Provider Diagnosis [facility] [address] [place] [address] 03/17/2024 Kolby Stanton Plan Of Treatment No Information Progress Notes * ROMÁN MCNAIR:1975 ( 48 yo F)Acc No.[id number]:03/17/2024 Patient:?SONAL MCNAIR :1975???Age:48 Y???Sex:Female Address: [address] [place] [address] * true * Date:? Generated for Printi leandro/Germain/eTransmitting on:?10/04/2024 09:53 AM EST
--- OUTSIDE RECORDS SUMMARY | 2024-10-04 09:53 | XMS_ITS | Data Portability ---
Author Organization ID - [facility] Address [address] [place] [phone] Assessment No assessment recorded. Plan of Treatment Reminders Order Date Submit Date Provider Last Modified By Organization Details Last Modified Time Details Appointments None record ed. Lab None record ed. Referral None record ed. Procedures None record ed. Surgeries None record ed. Imaging None record ed. Medication Orders None record ed. Patient TargetsNo targets recorded. Patient InstructionsNo instructions recorded. Reason for Referral None Reported. Medical Equipment None Reported. Vitals None Recorded Social History None recorded. Functional Status None recorded. Mental Status None recorded. Family History Nothing Reported. Medical History No medical history recorded. Gynecological HistoryNo gynecological history recorded. Obstetrics History GPAL:G 0 P 0 0 0 0 Past Encounters Encounter ID Performer Location Encounter Start Date Encounter Closed Date Diagnosis/Indication Diagnosis SNOMED-CT Code Diagnosis ICD10 Code Diagnosis Note [id number] Diana Guillory [address] [address] 06/30/2013 08:00:54 06/30/2013 08:48:16 Health Concerns Section Related Observation LastModified by Organization Detai ls LastModified Time None Recorded Concern Status LastModified by Organization Details LastModified Time None Recorded Advance Directives Directive None Recorded Payers Encounter Date Sequence Insurance Name Policy Number Policy Momin Covered Member ID Momin Member ID Guarantor Name 06/30/2013 1 *SELF PAY* An oscar Leigh OBGyn Episode No OBEpisode recorded.
--- OUTSIDE RECORDS SUMMARY | 2024-10-04 09:53 | XMS_ITS | Patient Health Record ---
Author Organization [facility] Address [address] [place] [address] Care Team Providers Care Switchboard Mechanic Name Role Phone JESSICA Breanna Primary Care Provider Kolby Bergman [phone] Allergies Allergen (clinical drug ingredient) Drug/Non Drug Allergy documented on EMR Reaction Allergy Type Onset Date Status seasonal (uncoded) Unknown Allergy A ctive Results Component Value Reference Range Notes Pathology (Not yet reviewed by provider) Interpretation: Performing Lab:[facility], [address] [place] [id number] Notes/Report: ---- Name: KingAj S Age/Sex: 48/F : 1975 Unit#: [id number] Attend Dr: Kolby Stanton MD Re01/28/24 Status : [facility] Location: [facility] Disch: ---- SPEC : [id number] RECD : 01/28/24 STATUS: ANNA ROE NUM: [id number] WALT: 01/28/24-[address] [facility] DR: Kolby Stanton MD ENTERED: 01/28/24- 12 SP TYPE: Surgical OTHR DR: Breanna Dye MD ORDERED: HE Stain/3, Gross Micro L4 Diagnosis Colon, cecal polyp: Tubular adenoma with marked reactive lymphoid response; negative for high-grade dysplasia and carcinoma. Clinical History Pre-Op Dx: Screening Post-Op Dx: Colon po lyp and hemorrhoids Microscopic Description Microscopic sections reviewed. Material Received Cecal polyp Gross Description Received in formalin labeled ?cecal polyp? is a 0.7 cm diaz-pink papule. The resected base is inked and the specimen is bisected and entirely submitted in a cassette labeled A. CEDS This case was review ed intradepartmentally. Copies To: Breanna Dye MD [id number] [place] [address] Kolby Stanton MD [address] [place] [address] ---- Signed (signature on file) Renetta Angeles 01/31/24 1701 ---- END OF REPORT Ur Preg Test Reviewed date:01/28/2024 03:44:59 PM Interpretation: Performing Lab:[facility], [address] [place] [address], [place] [address] Notes/Report: Urine NEGATIVE NEGATIVE This test was developed to detect early . False negative results may occur after the 5th - 7th week of when using this test method. If clinically indicated, consider a serum hCG. Reason For Referral No Information Medications Medication SIG (Take, Route, Frequency, Duration) Notes Start Date End Date Status Multi Vitamin - 1 tablet Orally Once a day for 30 day(s) Active Pantoprazole Sodium 40 MG TAKE 1 TABLET BY MOUTH EVERY DAY FOR 30 DAYS for 90 Active Immunizations Vaccine Route Administration Date Status Comme nts Influenza Unknown 05/09/2020 Administered Influenza Unknown 04/20/2023 Administered Social History Tobacco Use: Social History Observation Description Date Details (start date - stop date) Never Smoker NA - NA Tobacco Use/Smoking Question Answer Notes Patient is [...] Never (0 point) Points 1 Interpretation Negative Section Notes: Nonsmoker; no sig alcohol Nonsmoker; no sig alcohol Nonsmoker; no sig alcohol Problems Problem Type SNOMED Code ICD Code Onset Dates Problem Status W/U Status Risk Notes Problem Colon cancer screening (322130702) Colon cancer screening (Z12.11) Active confirmed Problem 831919168 Eosinophilic esophagitis (K20.0) Active confirmed Problem 818638059 Gastroesophageal reflux disease without esophagitis (K21.9) Active confirmed Problem Gastric polyp (35703583) Gastric polyp (K31.7) Active confirmed Problem 78504572 Hiatal hernia (K44.9) Active confirmed Problem 499800810 Esophageal ring (K22.2) Active confirmed Problem Esophageal reflux finding (782664172) Gastroesophageal reflux (K21.9) Active confirmed Problem 860033986 Gastroesophageal reflux disease, unspecified whether esophagitis present (K21.9) Active confirmed Problem Gastroesophageal reflux disease (532289112) Chronic GERD (K21.9) Active confirmed Vital Signs Temperature 97.7 degrees Fahrenheit 10/20/2023 Blood pressure diastolic 00 mm Hg 10/20/2023 Height 66 in 10/20/2023 Blood pressure systolic 000 mm Hg 10/20/2023 Weight 257 lbs 10/20/2023 BMI 41.48 kg/m2 10/20/2023 Encounters Encounter Location Date Provider Diagnosis [facility] [place] Out[place] [address] [place] [id number] 01/28/2024 Kolby Stanton Encounter for screening colonoscopy Z12.11 ; Colon polyps K63.5 and Other hemorrhoids K64.8 [facility] [address] [place] [address] 10/20/2023 Kolby Stanton Colon cancer screening Z12.11 and Chronic GERD K21.9 [facility] [address] [place] [address] 12/20/2023 Kolby Stanton [facility] [address] [place] [address] 03/17/2024 Kolby Stanton Assessments Encounter Date Diagnosis (ICD Code) Assessment Notes Treatment Notes Treatment Clinical Notes Section Notes 01/28/2024 Encounter for screening colonoscopy (ICD-10 - Z12.11) 01/28/2024 Colon polyps (ICD-10 - K63.5) 10/20/2023 Colon cancer screening (ICD-10 - Z12.11) Overall, Aj appears quite well. Her reflux seems to be quite stable on her daily regimen of pantoprazole. We did review the endoscopy findings and at this point I advised her to simply continue the pantoprazole, as well as continuing to try to watch her diet and weight as best as possible. I don't think any further upper endoscopies are required at this time. I did recommend a screening colonoscopy given her age of 47. We did review the rationale for that in regard to colon cancer prevention. Full consent is obtained for this, including risks of bleeding and perforation. The procedure will be done with monitored anesthesia care. Aj was comfortable with this plan. Thank you again for allowing me to participate in Aj's care. I shall continue to keep you advised of her progress. 10/20/2023 Chronic GERD (ICD-10 - K21.9) Overall, Aj appears quite well. Her reflux seems to be quite stable on her daily regimen of pantoprazole. We did review the endoscopy findings and at this point I advised her to simply continue the pantoprazole, as well as continuing to try to watch her diet and weight as best as possible. I don't think any further upper endoscopies are required at this time. I did recommend a screening colonoscopy given her age of 47. We did review the rationale for that in regard to colon cancer prevention. Full consent is obtained for this, including risks of bleeding and perforation. The procedure will be done with monitored anesthesia care. Aj was comfortable with this plan. Thank you again for allowing me to participate in Aj's care. I shall continue to keep you advised of her progress. 01/28/2024 Other hemorrhoids (ICD-10 - K64.8) Plan Of Treatment Pending Test Test Name Order Date Pathology 01/28/2024 Future Test Test Name Order Date UPPER GI ENDOSCOPY 05/15/2021 COLONOSCOPY 10/20/2023 Insurance Providers Payer Name Payer Address Payer Phone Subscriber Number Group Number Insured Name Patient Relationship to Insured Coverage Start Date Coverage End Date [employer] [place] [address] [place] [address] [id number] AJ MCNAIR Self - patient is the insured Medical (General) History Medical History History ICD Code Denies [place],DM,CVA,Lung disease,renal dise ase EGD in 2005 when [...] 2013 Umbilical hernia surgery-Dr. Lawrence Left breast [id number]. Mazzuc co
== END 2024-10-04 10:24 | disposition home or self-care (01) ==
LOC: HO.HWS 09:02
PROVIDERS: PCP Internal Medicine; Visit Provider Obstetrics & Gynecology
DX: Z01.419 Encounter for gynecological examination (general) (routine) without abnormal findings (principal); R10.2 Pelvic and perineal pain; Z32.02 Encounter for pregnancy test, result negative
CPT/HCPCS: 99213; 99396; 99459

== ENCOUNTER 2024-10-04 09:02 | Outpatient (REF) | payer BC, SELFPAY ==
--- OUTSIDE RECORDS SUMMARY | 2024-10-04 11:43 | XMS_ITS | Clinical Summary ---
Author Organization [facility] Address [address] [place] [address] Care Team Providers Care Leakage Tester Name Role Phone Unavailable Primary Care Provider [...]
--- OUTSIDE RECORDS SUMMARY | 2024-10-04 11:43 | XMS_ITS | Clinical Summary ---
Author Organization [facility] Address [address] [place] [address] Care Team Providers Care Postal Service Sectional Center Manager Name Role Phone Unavailable Primary Care Provider [...]
--- OUTSIDE RECORDS SUMMARY | 2024-10-04 11:43 | XMS_ITS | Clinical Summary ---
Author Organization [address] Address [address] [place] [address] Care Team Providers Care Ecosystem Ecology Professor Name Role Phone Unavailable Primary Care Provider [...]
--- OUTSIDE RECORDS SUMMARY | 2024-10-04 11:43 | XMS_ITS | Encounter Summary ---
Author Organization [facility] Address [address] [place] [address] Care Team Providers Care Assistant Spa Director Name Role Phone Unavailable Primary Care Provider [...] on 05/24/2024 11:33 AM. Workstation Name - [id number] Procedure Note Ronny Graves MD - 09/28/2024 [...] MD on 05/24/2024 11:33AM. Workstation Name - [id number] Ari [facility] IMG XR PROCEDURES Final Result documented in this encounter Visit Diagnoses Diagnosis History of falling Pain in left ankle and joints of left foot documented in this encounter
[2024-10-05 13:46] LABS: CT PCR NOT DETECTED (Not Detect.); NG PCR NOT DETECTED (Not Detect.)
== END 2024-10-04 09:03 | disposition home or self-care (01) ==
LOC: HO.LNP 09:02
PROVIDERS: PCP Internal Medicine; Visit Provider Obstetrics & Gynecology
DX: Z01.419 Encounter for gynecological examination (general) (routine) without abnormal findings (principal); R10.2 Pelvic and perineal pain
CPT/HCPCS: 81025; 87491; 87591

== ENCOUNTER 2024-10-26 13:37 | Outpatient (REF) | payer BC, SELFPAY ==
--- NOTE | ~2024-10-26 | US_ITS ---
EXAMINATION: US PELVIS TRANSABDOMINAL AND TRANSVAGINAL HISTORY: R10.2 - Pelvic and perineal pain COMPARISON: There are no prior studies for comparison. TECHNIQUE: Transabdominal and endovaginal real-time 2D gonzales-scale ultrasound was performed. The examination is limited due to patient body habitus. FINDINGS: Uterus: The uterus is normal in size, measuring 8.8 x 3.3 x 4.3 cm. Myometrium has a normal echotexture. No fibroids are identified. Endometrium: The endometrial stripe measures 9 mm in thickness. Right ovary: The right ovary is not identified. Left ovary: The left ovary is not identified. Pelvic fluid: none. US/US pelvic and transvaginal IMPRESSION: Limited examination due to patient body habitus. The uterus is unremarkable. The ovaries are not visualized. Electronically signed by: Kolby Haley MD 10/26/2024 02:22 PM EDT
--- OUTSIDE RECORDS SUMMARY | 2024-10-26 16:59 | XMS_ITS ---
Author Organization [facility] Address [address] [place] [address] Care Team Providers Care Weatherization Coordinator Name Role Phone Breanna LOPEZ Primary Care Provider Kolby Bergman [phone] REASON FOR VISIT screening Encounters Encounter Location Date Provider Diagnosis [facility] Outpatient [address] [place], [place] [id number] 01/28/2024 Kolby Stanton Encounter for scre ening [...] * ROMÁN MCNAIR:1975 ( 48 yo F)Acc No.[id number]:01/28/2024 COLON WITH MAC Patient:?BALDEV MCNAIRA Provider:?Kolby Stanton MD :1975???Age:48 Y???Sex:Female D ate:01/28/2024 Address: [address] [facility] Pcp:Breanna LOPEZ Subjective: * Chief Complaints: * ???1. Screening. * Medical History:? Objective: * Vitals:? Assessment: * Assessment: 1.?Encounter for screening c olonoscopy - Z12.11 (Primary)???2.?Colon polyps - K63.5???3.?Other hemorrhoids - K64.8??? Plan: * Treatment: * Procedure Codes:?88565 LESIO N REMOVAL COLONOSCOPY, Modifiers: PT * * The named appointment provid er may or may not be the originator of this progress note, and it is not deemed complete until electronically signed by the appointment provider. Sign off status: Pending * Provider:?Kolby Stanton MD Date:? 024 Generated for Ashlyn reeves/Germain/eTransmitting on:?10/26/2024 04:59 PM EDT
--- OUTSIDE RECORDS SUMMARY | 2024-10-26 16:59 | XMS_ITS | Clinical Summary ---
Author Organization [facility] Address [address] [place] [address] Care Team Providers Care Supervisor Plate Forming Name Role Phone Unavailable Primary Care Provider [...]
--- OUTSIDE RECORDS SUMMARY | 2024-10-26 16:59 | XMS_ITS | Clinical Summary ---
Author Organization [facility] Address [address] [place] [address] Care Team Providers Care Order Entry Name Role Phone Unavailable Primary Care Provider [...]
--- OUTSIDE RECORDS SUMMARY | 2024-10-26 16:59 | XMS_ITS | Clinical Summary ---
Author Organization [address] Address [address] [place] [address] Care Team Providers Care Caption Writer Name Role Phone Unavailable Primary Care Provider [...] series ( season) 2024 11/18/2020, 10/27/2020 RSV Immunization (1 - 1-dose 75+ series) 2052 Meningococcal Vaccine Aged Out No tyler norma eligible based on patient's age to complete this topic Pneumococcal Vaccine (2 - 49 years) Aged Out No longer eligible based on patient's age to complete this topic Insurance
--- OUTSIDE RECORDS SUMMARY | 2024-10-26 16:59 | XMS_ITS | Patient Health Record ---
Author Organization [facility] Address [address] [place] [address] Care Team Providers Care Consumer Attorney Name Role Phone JESSICA Breanna Primary Care Provider Kolby Bergman [phone] Allergies Allergen (clinical drug ingredient) Drug/Non Drug Allergy documented on EMR Reaction Allergy Type Onset Date Status seasonal (uncoded) Unknown Allergy A ctive Results Component Value Reference Range Notes Ur Preg Test Reviewed date:01/28/2024 03:44:59 PM Interpretation: Performing Lab:[facility], [address] [place] [phone] Notes/Report: Urine NEGATIVE NEGATIVE This test was developed to detect early . False negative results may occur after the 5th - 7th week of when using this test method. If clinically indicated, consider a serum hCG. Pathology (Not yet reviewed by provider) Interpretation: Performing Lab:[facility], [address] [place] [phone] Notes/Report: ---- Name: Aj Leigh Age/Sex: 48/F : 1975 Unit#: [id number] Attend Dr: Kolby Stanton MD Re01/28/24 Status : [facility] Location: [place] Disch: ---- SPEC : [id number] REC -1002 STATUS: ANNA ROE NUM: [id number] WALT: 01/28/[address] [facility] [address]: Kolby Stanton MD ENTERED: 01/28/24- 12 [...] ed intradepartmentally. Copies To: Breanna Dye MD [address] [place] [address] Kolby Stanton MD [address] [place] [address] ---- Signed (signature on file) Renetta Yeaddiss 01/31/24 1701 ---- END OF REPORT Reason For Referral No Information Medications Medication [...] Status Risk Notes Problem Colon cancer screening (459097494) Colon cancer screening (Z12.11) Active confirmed Problem 651680232 Eosinophilic esophagitis (K20.0) Active confirmed Problem 466079557 Gastroesophageal reflux disease without esophagitis (K21.9) Active confirmed Problem Gastric polyp (75823231) Gastric polyp (K31.7) Active confirmed Problem 62418724 Hiatal hernia (K44.9) Active confirmed Problem 101028990 Esophageal ring (K22.2) Active confirmed Problem Esophageal reflux finding (472286893) Gastroesophageal reflux (K21.9) Active confirmed Problem 956802238 Gastroesophageal reflux disease, unspecified whether esophagitis present (K21.9) Active confirmed Problem Gastroesophageal reflux disease (949227051) Chronic GERD (K21.9) Active confirmed Encounters Encounter Location Date Provider Diagnosis [facility] Outpatient [address] [place], [place] [id number] 01/28/2024 Kolby Stanton Encounter for screening colonoscopy Z12.11 ; Colon polyps K63.5 and Other hemorrhoids K64.8 [facility] [address] [place] [address] 12/20/2023 Kolby Stanton [facility] [address] [place] [address] 03/17/2024 Kolby Stanton Assessments Encounter Date Diagnosis [...] Date Coverage End Date HELADIO THOMAS/[employer] [facility] [address] [place] [address] [id number] AJ LEIGH Self - patient is the insured Medical (General) History Medical History History ICD Code Denies [place],DM,CVA,Lung disease,renal dise ase EGD in 2005 when [...] 2013 Umbilical hernia surgery-Dr. Lawrence Left breast gotdzsykws-xushfl-Jt. Mazzuc co
--- OUTSIDE RECORDS SUMMARY | 2024-10-26 16:59 | XMS_ITS | Encounter Summary ---
Author Organization [facility] Address [address] [place] [address] Care Team Providers Care Electronic Video Games Servicer Name Role Phone Unavailable Primary Care Provider [...] on 05/24/2024 11:33 AM. Workstation Name - [id number] Procedure Note Ronny Graves MD - 09/28/2024 [...] MD on 05/24/2024 11:33AM. Workstation Name - [id number] Ari STOKES IMG XR PROCEDURES Final Result documented in this encounter Visit Diagnoses Diagnosis History of falling Pain in left ankle and joints of left foot documented in this encounter
--- OUTSIDE RECORDS SUMMARY | 2024-10-26 17:00 | XMS_ITS | Data Portability ---
Author Organization [place] [facility] Address [address] [place] [address] Assessment No assessment recorded. Plan of Treatment [...] SNOMED-CT Code Diagnosis ICD10 Code Diagnosis Note [id number] Diana Guillory [address] [address] 06/30/2013 08:00:54 06/30/2013 08:48:16 Health Concerns [...]
--- OUTSIDE RECORDS SUMMARY | 2024-10-26 17:00 | XMS_ITS ---
Author Organization [facility] Address [address] [place] [address] Care Team Providers Care Order Desk Clerk Name Role Phone JESSICA Breanna Primary Care Provider Kolby Bergman [phone] REASON FOR VISIT pantoprazole / fyi Encounters Encounter Location Date Provider Diagnosis [facility] [address] [place] [address] 03/17/2024 Kolby Stanton Plan Of Treatment No Information Progress Notes * ROMÁN MCNAIR:1975 ( 48 yo F)Acc No.[id number]:03/17/2024 Patient:?SONAL MCNAIR :1975???Age:48 Y???Sex:Female Address: [place] [address] * true * Date:? Generated for Printi ng/Fairineog/eTransmitting on:?10/26/2024 04:59 PM EDT
--- OUTSIDE RECORDS SUMMARY | 2024-10-26 17:00 | XMS_ITS ---
Author Organization [facility] Address [address] [place] [address] Care Team Providers Care News Editor Name Role Phone JESSICA Breanna Primary Care Provider Kolby Bergman [phone] REASON FOR VISIT prior authorization Encounters Encounter Location Date Provider Diagnosis [facility] [address] [place] [address] 12/20/2023 Kolby Stanton Plan Of Treatment No Information Progress Notes * ROMÁN MCNAIR:1975 ( 48 yo F)Acc No.[id number]:12/20/2023 Patient:?SONAL MCNAIR :1975???Age:48 Y???Sex:Female Address: [place] [address] * true * Date:? Generated for Printi ng/Fairineog/eTransmitting on:?10/26/2024 04:59 PM EDT
== END 2024-10-26 13:38 | disposition home or self-care (01) ==
LOC: HO.US 13:37
PROVIDERS: PCP Internal Medicine; Visit Provider Obstetrics & Gynecology
DX: R10.2 Pelvic and perineal pain (principal)
CPT/HCPCS: 76830; 76856

== ENCOUNTER → 2024-10-26 13:39 | Outpatient (BNV) | payer BC, SELFPAY | PROVIDERS: PCP Internal Medicine; Visit Provider Radiology Diagnostic Radiology | DX: R10.2 Pelvic and perineal pain (principal) | CPT/HCPCS: 76830; 76856 ==

== ENCOUNTER 2024-11-01 09:08 | Outpatient (AMB) | payer BC, SELFPAY ==
--- NOTE | 2024-11-01 09:22 | MHC.OFFVIS ---
Vital Signs 11/01/24 09:23 Height 5 ft 6 in Weight 257 lb BMI 41.5 Intake Visit Reasons: Ultrasound follow up Allergies No Known Allergies Allergy (Verified 10/04/24 09:34) HPI Comments Details: Presenting for follow-up regarding her pelvic pain. The patient is doing well. The following workup was done so far: GC/CT negative. Last visit urine test was negative. Last visit urine dip. Pelvic ultrasound showed the following: Uterus: The uterus is normal in size, measuring 8.8 x 3.3 x 4.3 cm. Myometrium has a normal echotexture. No fibroids are identified. Endometrium: The endometrial stripe measures 9 mm in thickness. Right ovary: The right ovary is not identified. Left ovary: The left ovary is not identified. Pelvic fluid: none. 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 History of blood transfusion GERD (gastroesophageal reflux disease) Surgical History History of lumpectomy of left breast History of esophagogastroduodenoscopy (EGD) Hx of dilation and curettage H/O umbilical hernia repair (08/25/21) History of esophagogastroduodenoscopy (EGD) Hx of wisdom tooth extraction History of Family History Mother Uterine cancer, Onset Age: 45 Paternal Aunt Breast CA Maternal Aunt Breast CA Maternal Aunt Breast CA Family/Other Breast CA Family/Other Breast CA Social History Are you a primary home care aide to a significant other at home: No Do you presently have visiting nurse or other home services: No Alcohol intake: never Patient Tobacco Use Status: Never used Tobacco Sexual orientation: Straight/Heterosexual Gender identity: Female Female Reproductive History Menstrual Age of Menarche: 16 Review of Systems Const All systems reviewed & are unremarkable except as noted in HPI and below Reports as per HPI and Reports no additional complaints GI Reports no additional complaints Reports no additional complaints Physical Exam Vital Signs: BMI result Body Mass Index 41.5 Assessment & Plan Assessment & Plan (1) Pelvic pain: Code(s): R10.2 - Pelvic and perineal pain Category: Medical Plan: Discussed with the patient the results of the workup done including negative GC/chlamydia, urine dip, urine test and pelvic ultrasound. Differential diagnosis of service representative causes that have not be ruled out yet include but not limited to endometriosis, pelvic adhesions , or other. Recommended for the patient to see her PCP for further workup for non service representative causes; if the all the results are negative and the patient's pelvic pain is persistent, instructions given to patient to call back for further testing. Meanwhile, instructions were given the patient to go to emergency room or call in case of fever above 100.4, heavy vaginal bleeding, persistence or worsening of her pelvic pain. All questions answered, the patient verbalized understanding. Coding Level of Care Code Est Pt Level 3 (11870) Diagnoses Pelvic pain R10.2
[2024-11-01 09:23] VITALS: BMI 41.5
--- OUTSIDE RECORDS SUMMARY | 2024-11-01 10:01 | XMS_ITS ---
Author Organization [facility] Address [address] [place] [address] Care Team Providers Care Law Writer Name Role Phone JESSICA Breanna Primary Care Provider Kolby Bergman [phone] REASON FOR VISIT prior authorization Encounters Encounter Location Date Provider Diagnosis [facility] [address] [place] [address] 12/20/2023 Kolby Stanton Plan Of Treatment No Information Progress Notes * ROMÁN MCNAIR:1975 ( 48 yo F)Acc No.[id number]:12/20/2023 Patient:?SONAL MCNAIR :1975???Age:48 Y???Sex:Female Address:[address] [place] [address] [place] [address] * true * Date:? Generated for Printi ng/Germain/eTransmitting on:?11/01/2024 10:01 AM EDT
--- OUTSIDE RECORDS SUMMARY | 2024-11-01 10:01 | XMS_ITS ---
Author Organization [facility] Address [address] [place] [address] Care Team Providers Care Nicu Rn Name Role Phone Breanna LOPEZ Primary Care Provider Kolby Bergman [phone] REASON FOR VISIT screening Encounters Encounter Location Date Provider Diagnosis [facility] [address] [place], [place] [id number] 01/28/2024 Kolby Stanton Encounter for scre ening [...] * ROMÁN MCNAIR:1975 ( 48 yo F)Acc No.[id number]:01/28/2024 COLON WITH MAC Patient:?BALDEV MCNAIRA Provider:?Kolby Stanton MD :1975???Age:48 Y???Sex:Female D ate:01/28/2024 Address: [address] [facility] Pcp:Breanna LOPEZ Subjective: * Chief Complaints: * ???1. Screening. * Medical History:? Objective: * Vitals:? Assessment: * Assessment: 1.?Encounter for screening c olonoscopy - Z12.11 (Primary)???2.?Colon polyps - K63.5???3.?Other hemorrhoids - K64.8??? Plan: * Treatment: * Procedure Codes:?46918 LESIO N REMOVAL COLONOSCOPY, Modifiers: PT * * The named appointment provid er may or may not be the originator of this progress note, and it is not deemed complete until electronically signed by the appointment provider. Sign off status: Pending * Provider:?Kolby Stanton MD Date:? 024 Generated for Ashlyn reeves/Germain/eTransmitting on:?11/01/2024 10:01 AM EDT
--- OUTSIDE RECORDS SUMMARY | 2024-11-01 10:01 | XMS_ITS | Clinical Summary ---
Author Organization [facility] Address [address] [place] [address] Care Team Providers Care Death Claim Clerk Name Role Phone Unavailable Primary Care [...] 2024 11/18/2020, 10/27/2020 Influenza Vaccine (#1) 2024 , 05/12/2019, 08/12/2018, Additional history exists Pneumococcal Vaccine Aged Out No long er eligible based on patient's age to complete this topic RSV Ped < 20 months Aged Out No longe r eligible based on patient's age to complete this topic
--- OUTSIDE RECORDS SUMMARY | 2024-11-01 10:01 | XMS_ITS ---
Author Organization [facility] Address [address] [place] [address] Care Team Providers Care Petroleum Plant Operator Name Role Phone JESSICA Breanna Primary Care Provider Kolby Bergman [phone] REASON FOR VISIT pantoprazole / fyi Encounters Encounter Location Date Provider Diagnosis [facility] [address] [place] [address] 03/17/2024 Kolby Stanton Plan Of Treatment No Information Progress Notes * ROMÁN MCNAIR:1975 ( 48 yo F)Acc No.[id number]:03/17/2024 Patient:?SONAL MCNAIR :1975???Age:48 Y???Sex:Female Address: [place] [address] * true * Date:? Generated for Printi ng/Fairineog/eTransmitting on:?11/01/2024 10:01 AM EDT
--- OUTSIDE RECORDS SUMMARY | 2024-11-01 10:01 | XMS_ITS | Encounter Summary ---
Author Organization [facility] Address [address] [place] [address] Care Team Providers Care Supervisor Audit Clerks Name Role Phone Unavailable Primary Care Provider [...] on 05/24/2024 11:33 AM. Workstation Name - [id number] Procedure Note Ronny Graves MD - 09/28/2024 [...] MD on 05/24/2024 11:33AM. Workstation Name - [id number] Ari STOKES IMG XR PROCEDURES Final Result documented in this encounter Visit Diagnoses Diagnosis History of falling Pain in left ankle and joints of left foot documented in this encounter
--- OUTSIDE RECORDS SUMMARY | 2024-11-01 10:01 | XMS_ITS | Clinical Summary ---
Author Organization [address] Address [address] [place] [address] Care Team Providers Care Marriage Performer Name Role Phone Unavailable Primary Care Provider [...]
--- OUTSIDE RECORDS SUMMARY | 2024-11-01 10:01 | XMS_ITS | Patient Health Record ---
Author Organization [facility] Address [address] [place] [address] Care Team Providers Care Fiber Glass Worker Name Role Phone JESSICA Breanna Primary Care Provider Kolby Bergman [phone] Allergies Allergen (clinical drug ingredient) Drug/Non Drug Allergy documented on EMR Reaction Allergy Type Onset Date Status seasonal (uncoded) Unknown Allergy A ctive Results Component Value Reference Range Notes Ur Preg Test Reviewed date:01/28/2024 03:44:59 PM Interpretation: Performing Lab:[facility], [address] [place] [phone] Notes/Report: Urine NEGATIVE NEGATIVE This test was developed to detect early . False negative results may occur after the 5th - 7th week of when using this test method. If clinically indicated, consider a serum hCG. Pathology (Not yet reviewed by provider) Interpretation: Performing Lab:[facility], [address] [place] [phone] Notes/Report: ---- Name: Aj Leigh Age/Sex: 48/F : 1975 Unit#: [id number] Attend Dr: Kolby Stanton MD Re01/28/24 Status : [facility] Location: [place] Disch: ---- SPEC : [id number] REC -1002 STATUS: ANNA ROE NUM: [id number] WALT: 01/28/[address] [facility] [address]: Kolby Stanton MD ENTERED: 01/28/24- [...] intradepartmentally. Copies To: Breanna Dye MD [address] [place] [address] Kolby Stanton MD [address] [place] [address] ---- Signed (signature on file) Renetta Whittier 01/31/24 1701 ---- END OF REPORT Reason [...] Status Risk Notes Problem Colon cancer screening (520573382) Colon cancer screening (Z12.11) Active confirmed Problem 821903682 Eosinophilic esophagitis (K20.0) Active confirmed Problem 311683617 Gastroesophageal reflux disease without esophagitis (K21.9) Active confirmed Problem Gastric polyp (48166340) Gastric polyp (K31.7) Active confirmed Problem 32737463 Hiatal hernia (K44.9) Active confirmed Problem 236614744 Esophageal ring (K22.2) Active confirmed Problem Esophageal reflux finding (253688377) Gastroesophageal reflux (K21.9) Active confirmed Problem 381694859 Gastroesophageal reflux disease, unspecified whether esophagitis present (K21.9) Active confirmed Problem Gastroesophageal reflux disease (395176637) Chronic GERD (K21.9) Active confirmed Encounters Encounter Location Date Provider Diagnosis [facility] [place] [address] [place], [place] [phone] 01/28/2024 Kolby Stanton Encounter for screening colonoscopy Z12.11 ; Colon polyps K63.5 and Other hemorrhoids K64.8 [facility] [address] [place] [address] 12/20/2023 Kolby Stanton [facility] [address] [place] [address] 03/17/2024 Kolby Stanton Assessments Encounter Date Diagnosis [...] Date Coverage End Date HELADIO THOMAS/[employer] [facility] [address] [place] [address] [id number] AJ LEIGH Self - patient is the insured Medical (General) History Medical History History ICD Code Denies [place],DM,CVA,Lung disease,renal dise ase EGD in 2005 when [...] 2013 Umbilical hernia surgery-Dr. Lawrence Left breast wtvkcaegak-juwnlp-Di. Mazzuc co
--- OUTSIDE RECORDS SUMMARY | 2024-11-01 10:01 | XMS_ITS | Clinical Summary ---
Author Organization [facility] Address [address] [place] [address] Care Team Providers Care Air Brake Adjuster Name Role Phone Unavailable Primary Care Provider [...] Screening: P ap Smear 1998 COVID-19 Vaccine (2023-2 5 season) 2024 11/18/2020, 10/27/2020 Colorectal Cancer Screening: Colonoscopy 05/24/2024 Depression Screening 05/24/2024 HIV Screening 05/24/2024 Hepatitis C Screening 05/24/2024 Social Influencers of Health Screening 05/24/2024 Influenza Vaccine (Season Ended) 2025 HIB Vaccines Aged Out No longer eligi [...]
--- OUTSIDE RECORDS SUMMARY | 2024-11-01 10:01 | XMS_ITS | Data Portability ---
Author Organization [place] - [facility] Address [address] [place] [address] Assessment No assessment recorded. Plan of Treatment [...] SNOMED-CT Code Diagnosis ICD10 Code Diagnosis Note [id number] Diana Guillory [address] [address] 06/30/2013 08:00:54 06/30/2013 08:48:16 Health Concerns [...]
== END 2024-11-01 09:35 | disposition home or self-care (01) ==
LOC: HO.HWS 09:08
PROVIDERS: PCP Internal Medicine; Visit Provider Obstetrics & Gynecology
DX: R10.2 Pelvic and perineal pain (principal)
CPT/HCPCS: 99213

== ENCOUNTER 2024-12-04 08:12 | Outpatient (AMB) | payer BC, SELFPAY ==
--- NOTE | 2024-12-04 08:21 | MHC.OFFVIS ---
Vital Signs 12/04/24 08:24 Height 5 ft 6 in Weight 257 lb BMI 41.5 BP 122/70 Intake Visit Reasons: bp check/ control Hot Metal Crane Operator Required: No Information Interpreted: non-clinical & clinical Accompanied by: Self / Same As Patient Allergies No Known Allergies Allergy (Verified 12/04/24 08:26) HPI Comments Details: Presenting to discuss different options of control. 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 History of blood transfusion GERD (gastroesophageal reflux disease) Surgical History History of lumpectomy of left breast History of esophagogastroduodenoscopy (EGD) Hx of dilation and curettage H/O umbilical hernia repair (08/25/21) History of esophagogastroduodenoscopy (EGD) Hx of wisdom tooth extraction History of Family History Mother Uterine cancer, Onset Age: 45 Paternal Aunt Breast CA Maternal Aunt Breast CA Maternal Aunt Breast CA Family/Other Breast CA Family/Other Breast CA Social History Are you a primary director of health care marketing to a significant other at home: No Do you presently have visiting nurse or other home services: No Alcohol intake: never Patient Tobacco Use Status: Never used Tobacco Sexual orientation: Straight/Heterosexual Gender identity: Female Female Reproductive History Menstrual Age of Menarche: 16 Date of last menstrual period: 11/16/24 control method: pills Review of Systems Const All systems reviewed & are unremarkable except as noted in HPI and below Reports as per HPI and Reports no additional complaints GI Reports no additional complaints Reports no additional complaints Assessment & Plan Assessment & Plan (1) Family planning: Code(s): Z30.09 - Encounter for other general counseling and advice on contraception Category: Social Hx Plan: Discussed with the patient the different options of control including control pills/Nuvaring, DMPA, different types of IUD ?s, sterilization. All the pros, cons, risks and benefits of each were discussed with the patient. The patient decided to think about it and get back to me. All questions answered, the patient verbalized understanding Coding Level of Care Code Est Pt Level 3 (01759) Diagnoses Family planning Z30.09
[2024-12-04 08:24] VITALS: BP 122/70; BMI 41.5
--- OUTSIDE RECORDS SUMMARY | 2024-12-04 08:28 | XMS_ITS | Clinical Summary ---
Author Organization [facility] Address [address] [place] [address] Care Team Providers Care Chemical Production Machine Operator Name Role Phone Unavailable Primary Care Provider [...]
--- OUTSIDE RECORDS SUMMARY | 2024-12-04 08:28 | XMS_ITS ---
Author Organization [facility] Address [address] [place] [address] Care Team Providers Care Vocal Performer Name Role Phone JESSICA Breanna Primary Care Provider Kolby Bergman [phone] REASON FOR VISIT prior authorization Encounters Encounter Location Date Provider Diagnosis [facility] [address] [place] [address] 12/20/2023 Kolby Stanton Plan Of Treatment No Information Progress Notes * ROMÁN MCNAIR:1975 ( 48 yo F)Acc No.[id number]:12/20/2023 Patient:?SONAL MCNAIR :1975???Age:48 Y???Sex:Female Address: [place] [address] * true * Date:? Generated for Printi ng/Fairineog/eTransmitting on:?12/04/2024 08:28 AM EDT
--- OUTSIDE RECORDS SUMMARY | 2024-12-04 08:28 | XMS_ITS ---
Author Organization [facility] Address [address] [place] [address] Care Team Providers Care Pharmacy Order Entry Technician Name Role Phone JESSICA Breanna Primary Care Provider Kolby Bergman [phone] REASON FOR VISIT pantoprazole / fyi Encounters Encounter Location Date Provider Diagnosis [facility] [address] [place] [address] 03/17/2024 Kolby Stanton Plan Of Treatment No Information Progress Notes * ROMÁN MCNAIR:1975 ( 48 yo F)Acc No.[id number]:03/17/2024 Patient:?SONAL MCNAIR :1975???Age:48 Y???Sex:Female [address] [place] [address] * true * Date:? Generated for Printi ng/Fairineog/eTransmitting on:?12/04/2024 08:28 AM EDT
--- OUTSIDE RECORDS SUMMARY | 2024-12-04 08:28 | XMS_ITS | Data Portability ---
Author Organization [place] - [facility], [facility] Address [address] [place] [phone] Assessment No assessment recorded. Plan of Treatment [...] SNOMED-CT Code Diagnosis ICD10 Code Diagnosis Note [id number] Haydee Loredo MD [address] [address] 06/30/2013 08:00:54 06/30/2013 08:48:16 Health Concerns [...]
--- OUTSIDE RECORDS SUMMARY | 2024-12-04 08:28 | XMS_ITS | Patient Health Record ---
Author Organization [facility] Address [address] [place] [address] Care Team Providers Care Computing Machine Operator Name Role Phone JESSICA Breanna Primary Care Provider Kolby Bergman [phone] Allergies Allergen (clinical drug ingredient) Drug/Non Drug Allergy documented on EMR Reaction Allergy Type Onset Date Status seasonal (uncoded) Unknown Allergy A ctive Results Component Value Reference Range Notes Ur Preg Test Reviewed date:01/28/2024 03:44:59 PM Interpretation: Performing Lab:[facility], [address] [place] [phone] Notes/Report: Urine NEGATIVE NEGATIVE This test was developed to detect early . False negative results may occur after the 5th - 7th week of when using this test method. If clinically indicated, consider a serum hCG. Pathology (Not yet reviewed by provider) Interpretation: Performing Lab:[facility], [address] [place] [phone] Notes/Report: ---- Name: ReeseAj Age/Sex: 48/F : 1975 Unit#: [id number] Attend Dr: Kolby Stanton MD Re01/28/24 Status : [facility] Location: [place] Disch: ---- SPEC : [id number] REC -1002 STATUS: ANNA ROE NUM: [id number] WALT: 01/28/24 [facility] DR: Kolby Stanton MD ENTERED: 01/28/24- [...] intradepartmentally. Copies To: Breanna Dye MD [address] [place] [address] Kolby Stanton MD [address] [place] [address] ---- Signed (signature on file) Renetta Karthik 01/31/24 1701 ---- END OF REPORT Reason [...] Status Risk Notes Problem Colon cancer screening (401772527) Colon cancer screening (Z12.11) Active confirmed Problem 690292133 Eosinophilic esophagitis (K20.0) Active confirmed Problem 069183662 Gastroesophageal reflux disease without esophagitis (K21.9) Active confirmed Problem Gastric polyp (54601879) Gastric polyp (K31.7) Active confirmed Problem 52705770 Hiatal hernia (K44.9) Active confirmed Problem 198522388 Esophageal ring (K22.2) Active confirmed Problem Esophageal reflux finding (970586841) Gastroesophageal reflux (K21.9) Active confirmed Problem 286268306 Gastroesophageal reflux disease, unspecified whether esophagitis present (K21.9) Active confirmed Problem Gastroesophageal reflux disease (385729141) Chronic GERD (K21.9) Active confirmed Encounters Encounter Location Date Provider Diagnosis [facility] Outpatient [address] [place], [place] [phone] 01/28/2024 Kolby Stanton Encounter for screening colonoscopy Z12.11 ; Colon polyps K63.5 and Other hemorrhoids K64.8 [facility] [address] [place] [address] 12/20/2023 Kolby Stanton [facility] [address] [place] [address] 03/17/2024 Kolby Stanton Assessments Encounter Date Diagnosis [...] Date Coverage End Date HELADIO THOMAS/[facility] [address] [place] [address] [id number] AJ MCNAIR Self - patient is the insured Medical (General) History Medical History History ICD Code Denies [place],DM,CVA,Lung disease,renal dise ase EGD in 2005 when [...] 2013 Umbilical hernia surgery-Dr. Lawrence Left breast [id number]-Me. Mazzuc co
--- OUTSIDE RECORDS SUMMARY | 2024-12-04 08:28 | XMS_ITS | Clinical Summary ---
Author Organization [facility] Address [address] [place] [address] Care Team Providers Care Sailboat Captain Name Role Phone Unavailable Primary Care Provider [...] age to complete this topic Meningococcal B Vaccine Aged Out No l onger eligible based on patient's age to complete [...]
--- OUTSIDE RECORDS SUMMARY | 2024-12-04 08:28 | XMS_ITS | Clinical Summary ---
Author Organization [address] Address [address] [place] [address] Care Team Providers Care Bale Stacker Name Role Phone Unavailable Primary Care Provider [...] adult (Td q 10,TDAP once) 08/04/2023 08/04/2013 Covid-19 vaccine series ( season) 2024 11/18/2020, 10/27/2020 Influenza vaccine 04/02/2025 05/07/2022, , 08/12/2018, Additional history exists RSV Immunization (1 - 1-dose 75+ series) 2052 Meningococcal Vaccine Aged Out No tyler norma eligible based on patient's age to complete this topic Pneumococcal Vaccine (2 - 49 years) Aged Out No longer eligible based on patient's age to complete this topic Insurance
--- OUTSIDE RECORDS SUMMARY | 2024-12-04 08:28 | XMS_ITS | Encounter Summary ---
Author Organization [facility] Address [address] [place] [address] Care Team Providers Care Baccarat Dealer Name Role Phone Unavailable Primary Care Provider [...] on 05/24/2024 11:33 AM. Workstation Name - [id number] Procedure Note Ronny Graves MD - 09/28/2024 [...] MD on 05/24/2024 11:33AM. Workstation Name - [id number] Ari [facility] IMG XR PROCEDURES Final Result documented in this encounter Visit Diagnoses Diagnosis History of falling Pain in left ankle and joints of left foot documented in this encounter
--- OUTSIDE RECORDS SUMMARY | 2024-12-04 08:28 | XMS_ITS ---
Author Organization [facility] Address [address] [place] [address] Care Team Providers Care Mission Analyst Name Role Phone Breanna LOPEZ Primary Care Provider Kolby Bergman [phone] REASON FOR VISIT screening Encounters Encounter Location Date Provider Diagnosis [facility] Outpatient [address] [place], [place] [phone] 01/28/2024 Kolby Stanton Encounter for scre ening [...] * ROMÁN MCNAIR:1975 ( 49 yo F)Acc No.[id number]:01/28/2024 COLON WITH MAC Patient:?BALDEV MCNAIRA Provider:?Kolby Stanton MD :1975???Age:48 Y???Sex:Female D ate:01/28/2024 Address: [address] [facility] Pcp:Breanna LOPEZ Subjective: * Chief Complaints: * ???1. Screening. * Medical History:? Objective: * Vitals:? Assessment: * Assessment: 1.?Encounter for screening c olonoscopy - Z12.11 (Primary)???2.?Colon polyps - K63.5???3.?Other hemorrhoids - K64.8??? Plan: * Treatment: * Procedure Codes:?93263 LESIO N REMOVAL COLONOSCOPY, Modifiers: PT * * The named appointment provid er may or may not be the originator of this progress note, and it is not deemed complete until electronically signed by the appointment provider. Sign off status: Pending * Provider:?Kolby Stanton MD Date:? 024 Generated for Ashlyn reeves/Germain/eTransmitting on:?12/04/2024 08:27 AM EDT
== END 2024-12-04 08:35 | disposition home or self-care (01) ==
LOC: HO.HWS 08:13
PROVIDERS: PCP Internal Medicine; Visit Provider Obstetrics & Gynecology
DX: Z30.09 Encounter for other general counseling and advice on contraception (principal)
CPT/HCPCS: 99213

== ENCOUNTER → 2024-12-04 08:12 | Outpatient (BNVA) | payer BC, SELFPAY | PROVIDERS: PCP Internal Medicine; Visit Provider Obstetrics & Gynecology ==

== ENCOUNTER 2024-12-27 09:02 | Outpatient (REF) | payer BC, SELFPAY ==
--- OUTSIDE RECORDS SUMMARY | 2024-12-27 09:34 | XMS_ITS | Patient Health Record ---
Author Organization [facility] Address [address] [place] [address] Care Team Providers Care Applications Manager Name Role Phone JESSICA Breanna Primary Care Provider Kolby Bergman [phone] Allergies Allergen (clinical drug ingredient) Drug/Non Drug Allergy documented on EMR Reaction Allergy Type Onset Date Status seasonal (uncoded) Unknown Allergy A ctive Results Component Value Reference Range Notes Ur Preg Test Reviewed date:01/28/2024 03:44:59 PM Interpretation: Performing Lab:[facility], [address] [place] [phone] Notes/Report: Urine NEGATIVE NEGATIVE This test was developed to detect early . False negative results may occur after the 5th - 7th week of when using this test method. If clinically indicated, consider a serum hCG. Pathology (Not yet reviewed by provider) Interpretation: Performing Lab:[facility], [address] [place] [phone] Notes/Report: ---- Name: ReeseAj Age/Sex: 48/F : 1975 Unit#: [id number] Attend Dr: Kolby Stanton MD Re01/28/24 Status : [facility] Location: [place] Disch: ---- SPEC : [id number] REC -1002 STATUS: ANNA ROE NUM: [id number] WALT: 01/28/24 [facility] DR: Kolby Stanton MD ENTERED: 01/28/24- [...] intradepartmentally. Copies To: Breanna Dye MD [address] [place] [address] Kolby Stanton MD [address] [place] [address] ---- Signed (signature on file) Renetta Worcester 01/31/24 1701 ---- END OF REPORT Reason [...] Status Risk Notes Problem Colon cancer screening (376832998) Colon cancer screening (Z12.11) Active confirmed Problem 899543588 Eosinophilic esophagitis (K20.0) Active confirmed Problem 881523854 Gastroesophageal reflux disease without esophagitis (K21.9) Active confirmed Problem Gastric polyp (59672944) Gastric polyp (K31.7) Active confirmed Problem 85329127 Hiatal hernia (K44.9) Active confirmed Problem 333648652 Esophageal ring (K22.2) Active confirmed Problem Esophageal reflux finding (258867865) Gastroesophageal reflux (K21.9) Active confirmed Problem 085008050 Gastroesophageal reflux disease, unspecified whether esophagitis present (K21.9) Active confirmed Problem Gastroesophageal reflux disease (528609839) Chronic GERD (K21.9) Active confirmed Encounters Encounter Location Date Provider Diagnosis [facility] Outpatient [address] [place], [place] [phone] 01/28/2024 Kolby Stanton Encounter for screening colonoscopy Z12.11 ; Colon polyps K63.5 and Other hemorrhoids K64.8 [facility] [address] [place] [address] 03/17/2024 Kolby Stanton Assessments Encounter Date Diagnosis [...] OF CT [address] [place] [address] [id number] KING AJ Self - patient is the insured Medical (General) History Medical History History ICD Code Denies MD,DM,CVA,Lung disease,renal dise ase EGD in 2005 when [...] 2013 Umbilical hernia surgery-Dr. Lawrence Left breast [id number]-Tt. Mazzuc co
[2024-12-27] MEDS: gadobutroL 10 ML VIAL IVPUSH (10:24)
== END 2024-12-27 09:03 | disposition home or self-care (01) ==
LOC: HO.MRI 09:02
PROVIDERS: PCP Internal Medicine; Visit Provider Obstetrics & Gynecology
DX: N60.92 Unspecified benign mammary dysplasia of left breast (principal); Z91.89 Other specified personal risk factors, not elsewhere classified
CPT/HCPCS: 77049; A9585

== ENCOUNTER → 2024-12-27 09:15 | Outpatient (BNV) | payer BC, SELFPAY | PROVIDERS: PCP Internal Medicine; Visit Provider Internal Medicine | DX: N63.20 Unspecified lump in the left breast, unspecified quadrant (principal) | CPT/HCPCS: 77049 ==

== ENCOUNTER 2025-01-05 09:37 | Outpatient (AMB) | payer BC, SELFPAY ==
--- NOTE | 2025-01-05 09:45 | A.OFFVIS_ITS ---
Vital Signs 01/05/25 09:55 Height 5 ft 6 in Weight 264 lb 8 oz BMI 42.7 BP 147/70 H Blood Pressure Location Lt brachial Position Sitting Pulse 95 Intake Visit Reasons: post MRI, breast exam Intake Note: Patient is seen in office for 6 month follow up visit, breast exam. Pt c/o: denies any concerns regarding the breast MRI: 12/27/24 mm sched:07/14/25 Director Financial Planning Required: No Chucking Machine Set Up Operator: Chucking Machine Set Up Operator Present Accompanied by: Self / Same As Patient Allergies No Known Allergies Allergy (Verified 01/05/25 09:53) HPI Comments Details: 48-year-old female patient with a prior history of atypical ductal hyperplasia of the left breast. She was initially placed on a high risk screening protocol due to her strong family history of breast cancer. 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 She subsequently underwent a left breast lumpectomy with needle localization to remove the area of atypical ductal hyperplasia on 10/01/2021. Pathology for the lumpectomy revealed: ?Breast parenchyma with ductal papillomatosis, cystic papillary apocrine metaplasia, columnar cell subsequent pathology revealed cell changes, focal pseudoangiomatous stromal hyperplasia (PASH) and previous biopsy site changes; negative for atypia or malignancy. Genetic testing drawn on 09/16/2021 revealed no clinically significant mutations identified. 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 Her Tyrer-Cuzick breast cancer risk calculation for remaining lifetime breast cancer risk was calculated at 42.2%. A high risk breast cancer protocol was recommended. Her most recent mammogram of 07/08/2024 revealed no mammographic evidence of malignancy (BI-RADS 2. Her most recent breast MRI of 12/27/2024 revealed normal right breast however left breast revealed two 5 mm probable enhancing foci in the lower outer breast anterior depth and lower outer breast posterior depth which may represent background enhancement foci and are not significantly changed from a previous MRI in 2023. A six-month follow-up MRI was recommended in the lesions were felt to be probably benign (right breast BI-RADS 1, left breast BI-RADS 3). She denies any ongoing breast symptoms at this time. [facility] Medical History Seasonal allergies Sleep apnea Hiatal hernia COVID-19 vaccine series completed 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 History of blood transfusion GERD (gastroesophageal reflux disease) Surgical History History of lumpectomy of left breast History of esophagogastroduodenoscopy (EGD) Hx of dilation and curettage H/O umbilical hernia repair (08/25/21) History of esophagogastroduodenoscopy (EGD) Hx of wisdom tooth extraction History of Family History Mother Uterine cancer, Onset Age: 45 Paternal Aunt Breast CA Maternal Aunt Breast CA Maternal Aunt Breast CA Family/Other Breast CA Family/Other Breast CA Social History Are you a primary home care provider to a significant other at home: No Do you presently have visiting nurse or other home services: No Alcohol intake: never Patient Tobacco Use Status: Never used Tobacco Sexual orientation: Straight/Heterosexual Gender identity: Female Female Reproductive History Menstrual Age of Menarche: 16 Review of Systems Const Denies chills, Denies fever(s), Denies headache(s) and Denies poor appetite ENT Denies dizziness and Denies headache(s) Card Denies chest pain, Denies rapid heart rate, Denies palpitations and Denies slow heart rate Resp Denies chest congestion, Reports cough, Denies pain on inspiration and Denies wheezing GI Reports as per HPI, Reports abdominal pain, Denies bloating, Denies change in stool character, Denies constipation, Denies diarrhea, Denies nausea, Denies vomiting and Denies hematemesis Denies nipple discharge Musc Denies back pain, Denies arthralgias, Denies joint swelling and Denies numbness Skin/Breast Denies breast swelling, Reports breast skin changes (Bruising as noted above), Denies breast pain, Denies breast mass, Denies change in breast shape, Denies change in pigmentation, Denies nipple discharge, Denies erythema and Denies rash Neuro Denies dizziness, Denies headache(s) and Denies numbness Psych Denies anxiety and Denies depression Endo Denies palpitations Pancho/Lymph Denies easy bleeding, Denies easy bruising and Denies lymphadenopathy Aller/Immun Denies wheezing Physical Exam Const General: no acute distress and well developed Nutritional Appearance: average body habitus Orientation/consciousness: patient oriented x3 Limitations: no limitations Chest Other: Incision in the left breast at the lower inner quadrant just above the inframammary crease is clean, dry, and intact without redness or discharge. No skin change, no nipple retraction, no nipple discharge, no palpable mass, no enlarged lymph nodes. Minimal tenderness is elicited with palpation in the lower quadrants. Right breast: No skin change corresponding to MRI finding, no nipple retraction, no nipple discharge, no palpable mass, no enlarged lymph nodes Resp Effort & Inspection: normal respiratory effort, no audible wheezes, Actively coughing and no respiratory distress GI Inspection: Yes normal to inspection Skin Other: Warm, dry, no rash Neuro Other: Mobility Assessment:6 1. 3 meter assessment time (seconds) 2. Gait observations: Normal balance and gait General: patient oriented x3 Extrem Other: No edema Assessment & Plan Assessment & Plan (1) At high risk for breast cancer: Code(s): Z91.89 - Other specified personal risk factors, not elsewhere classified Category: Medical Plan: (2) Abnormal MRI, breast: Code(s): R92.8 - Other abnormal and inconclusive findings on diagnostic imaging of breast Category: Medical (3) Atypical ductal hyperplasia of left breast: Code(s): N60.92 - Unspecified benign mammary dysplasia of left breast Category: Medical (4) Pseudoangiomatous stromal hyperplasia of breast: Code(s): N64.89 - Other specified disorders of breast Category: Medical Plan Patient returns today to review the results of her MRI. The left breast revealed 2 areas of enhancement felt to be low suspicion for malignancy. The right breast was normal with no suspicious findings. Six-month follow-up MRI was recommended. She has a prior history of atypical ductal hyperplasia of the left breast in his status post left breast lumpectomy.. Examination reveals no suspicious findings in either breast. She was found to have a Tyrer-Cuzick remaining lifetime risk of breast cancer of 42.2% and should continue with the high risk breast screening. I recommended continuing the yearly mammograms and we will schedule a six-month follow-up breast MRI as recommended. She will return approximately 6 months for follow-up breast examination. Orders: Orders MR breast BI wo/w con 6 Months N60.92 - Unspecified benign mammary dysplasia of left breast, R92.8 - Other abnormal and inconclusive findings on diagnostic imaging of breast, Z91.89 - Other specified personal risk factors, not elsewhere classified Coding Level of Care Code Est Pt Level 3 (02820) Complex EM visit Add On G2211 Diagnoses At high risk for breast cancer Z91.89 Abnormal MRI, breast R92.8 Atypical ductal hyperplasia of left breast N60.92 Pseudoangiomatous stromal hyperplasia of breast N64.89
[2025-01-05 09:55] VITALS: BP 147/70; PULSE 95; BMI 42.7
--- OUTSIDE RECORDS SUMMARY | 2025-01-05 10:14 | XMS_ITS | Patient Health Record ---
Author Organization [facility] Address [address] [place] [address] Care Team Providers Care Stock Controller Name Role Phone JESSICA Breanna Primary Care Provider Kolby Bergman [phone] Allergies Allergen (clinical drug ingredient) Drug/Non Drug Allergy documented on EMR Reaction Allergy Type Onset Date Status seasonal (uncoded) Unknown Allergy A ctive Results Component Value Reference Range Notes Ur Preg Test Reviewed date:01/28/2024 03:44:59 PM Interpretation: Performing Lab:[facility], [address] [place] [phone] Notes/Report: Urine NEGATIVE NEGATIVE This test was developed to detect early . False negative results may occur after the 5th - 7th week of when using this test method. If clinically indicated, consider a serum hCG. Pathology (Not yet reviewed by provider) Interpretation: Performing Lab:[facility], [address] [place] [phone] Notes/Report: ---- Name: Aj Leigh Age/Sex: 48/F : 1975 Unit#: [id number] Attend Dr: Kolby Stanton MD Re01/28/24 Status : [facility] Location: [place] Disch: ---- SPEC : [id number] REC -1002 STATUS: ANNA ROE NUM: [id number] WALT: 01/28/[address] [facility] [address]: Kolby Stanton MD ENTERED: 01/28/24- 12 [...] intradepartmentally. Copies To: Breanna Dye MD [address] [place] [address] Kolby Stanton MD [address] [place] [address] ---- Signed (signature on file) Renetta Patterson 01/31/24 1701 ---- END OF REPORT Reason [...] Status Risk Notes Problem Colon cancer screening (724585393) Colon cancer screening (Z12.11) Active confirmed Problem 249847648 Eosinophilic esophagitis (K20.0) Active confirmed Problem 483098138 Gastroesophageal reflux disease without esophagitis (K21.9) Active confirmed Problem Gastric polyp (05569884) Gastric polyp (K31.7) Active confirmed Problem 62126244 Hiatal hernia (K44.9) Active confirmed Problem 454758778 Esophageal ring (K22.2) Active confirmed Problem Esophageal reflux finding (015823408) Gastroesophageal reflux (K21.9) Active confirmed Problem 161093842 Gastroesophageal reflux disease, unspecified whether esophagitis present (K21.9) Active confirmed Problem Gastroesophageal reflux disease (682101450) Chronic GERD (K21.9) Active confirmed Encounters Encounter Location Date Provider Diagnosis [facility] Outpatient [address] [place], [place] [phone] 01/28/2024 Kolby Stanton Encounter for screening colonoscopy Z12.11 ; Colon polyps K63.5 and Other hemorrhoids K64.8 [facility] [address] [place] [address] 03/17/2024 Kolby Stanton Assessments Encounter Date Diagnosis [...] OF CT [address] [place] [address] [id number] KING AJ Self - patient is the insured Medical (General) History Medical History History ICD Code Denies [place],DM,CVA,Lung disease,renal dise ase EGD in 2005 when [...] 2013 Umbilical hernia surgery-Dr. Lawrence Left breast [id number]-An. Mazzuc co
== END 2025-01-05 10:10 | disposition home or self-care (01) ==
LOC: HO.HGS 09:38
PROVIDERS: PCP Internal Medicine; Visit Provider Surgery
DX: Z91.89 Other specified personal risk factors, not elsewhere classified (principal); R92.8 Other abnormal and inconclusive findings on diagnostic imaging of breast; N60.92 Unspecified benign mammary dysplasia of left breast; N64.89 Other specified disorders of breast
CPT/HCPCS: 99213

== ENCOUNTER 2025-07-13 09:07 | Outpatient (AMB) | payer BC, SELFPAY ==
--- NOTE | 2025-07-13 09:09 | MHC.OFFVIS ---
Vital Signs 07/13/25 09:17 Height 5 ft 6 in Weight 266 lb BMI 42.9 BP 176/104 H Blood Pressure Location Lt brachial Position Sitting Pulse 95 Intake Visit Reasons: post MRI, breast exam Intake Note: Patient is seen in office for 6 month follow up visit, breast exam. Pt c/o: denies any concerns MRI sched: 07/25/25 MM sched: 07/24/25 Tax Collection Coordinator Required: No Supervisor Electrolytic Tinning: Supervisor Electrolytic Tinning Present Accompanied by: Self / Same As Patient Allergies No Known Allergies Allergy (Verified 07/13/25 09:18) HPI Comments Details: 49-year-old female patient with a prior history of atypical ductal hyperplasia of the left breast. She was initially placed on a high risk screening protocol due to her strong family history of breast cancer. 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 She subsequently underwent a left breast lumpectomy with needle localization to remove the area of atypical ductal hyperplasia on 10/01/2021. Pathology for the lumpectomy revealed: ?Breast parenchyma with ductal papillomatosis, cystic papillary apocrine metaplasia, columnar cell subsequent pathology revealed cell changes, focal pseudoangiomatous stromal hyperplasia (PASH) and previous biopsy site changes; negative for atypia or malignancy. Genetic testing drawn on 09/16/2021 revealed no clinically significant mutations identified. 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 Her Tyrer-Cuzick breast cancer risk calculation for remaining lifetime breast cancer risk was calculated at 42.2%. A high risk breast cancer protocol was recommended. Her most recent mammogram of 07/08/2024 revealed no mammographic evidence of malignancy (BI-RADS 2). Her most recent breast MRI of 12/27/2024 revealed normal right breast however left breast revealed two 5 mm probable enhancing foci in the lower outer breast anterior depth and lower outer breast posterior depth which may represent background enhancement foci and are not significantly changed from a previous MRI in 2023. A six-month follow-up MRI is scheduled for 07/25/2025. (right breast BI-RADS 1, left breast BI-RADS 3). Her next mammogram is also scheduled for 07/14/2025. She denies any ongoing breast symptoms at this time. She does report feeling tired all the time. [facility] Medical History Seasonal allergies Sleep apnea Hiatal hernia COVID-19 vaccine series completed 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 History of blood transfusion GERD (gastroesophageal reflux disease) Surgical History History of lumpectomy of left breast History of esophagogastroduodenoscopy (EGD) Hx of dilation and curettage H/O umbilical hernia repair (08/25/21) History of esophagogastroduodenoscopy (EGD) Hx of wisdom tooth extraction History of Family History Mother Uterine cancer, Onset Age: 45 Paternal Aunt Breast CA Maternal Aunt Breast CA Maternal Aunt Breast CA Family/Other Breast CA Family/Other Breast CA Social History Are you a primary patient care coordinator to a significant other at home: No Do you presently have visiting nurse or other home services: No Alcohol intake: never Patient Tobacco Use Status: Never used Tobacco Sexual orientation: Straight/Heterosexual Gender identity: Female Female Reproductive History Menstrual Age of Menarche: 16 Review of Systems Const Denies chills, Denies fever(s), Denies headache(s) and Denies poor appetite ENT Denies dizziness and Denies headache(s) Card Denies chest pain, Denies rapid heart rate, Denies palpitations and Denies slow heart rate Resp Denies chest congestion, Reports cough, Denies pain on inspiration and Denies wheezing GI Reports as per HPI, Reports abdominal pain, Denies bloating, Denies change in stool character, Denies constipation, Denies diarrhea, Denies nausea, Denies vomiting and Denies hematemesis Denies nipple discharge Musc Denies back pain, Denies arthralgias, Denies joint swelling and Denies numbness Skin/Breast Denies breast swelling, Reports breast skin changes (Bruising as noted above), Denies breast pain, Denies breast mass, Denies change in breast shape, Denies change in pigmentation, Denies nipple discharge, Denies erythema and Denies rash Neuro Denies dizziness, Denies headache(s) and Denies numbness Psych Denies anxiety and Denies depression Endo Denies palpitations Pancho/Lymph Denies easy bleeding, Denies easy bruising and Denies lymphadenopathy Aller/Immun Denies wheezing Physical Exam Const General: no acute distress and well developed Nutritional Appearance: average body habitus Orientation/consciousness: patient oriented x3 Limitations: no limitations Chest Other: Incision in the left breast at the lower inner quadrant just above the inframammary crease is clean, dry, and intact without redness or discharge. No skin change, no nipple retraction, no nipple discharge, no palpable mass, no enlarged lymph nodes. Minimal tenderness is elicited with palpation in the lower quadrants. Right breast: No skin change corresponding to MRI finding, no nipple retraction, no nipple discharge, no palpable mass, no enlarged lymph nodes Resp Effort & Inspection: normal respiratory effort, no audible wheezes, Actively coughing and no respiratory distress GI Inspection: Yes normal to inspection Skin Other: Warm, dry, no rash Neuro Other: Mobility Assessment:6 1. 3 meter assessment time (seconds) 2. Gait observations: Normal balance and gait General: patient oriented x3 Extrem Other: No edema Assessment & Plan Assessment & Plan (1) At high risk for breast cancer: Code(s): Z91.89 - Other specified personal risk factors, not elsewhere classified Category: Medical Plan: (2) Abnormal MRI, breast: Code(s): R92.8 - Other abnormal and inconclusive findings on diagnostic imaging of breast Category: Medical (3) Atypical ductal hyperplasia of left breast: Code(s): N60.92 - Unspecified benign mammary dysplasia of left breast Category: Medical (4) Pseudoangiomatous stromal hyperplasia of breast: Code(s): N64.89 - Other specified disorders of breast Category: Medical Plan Patient returns today for a high-risk breast examination. Her previous MRI revealed left breast with 2 areas of enhancement felt to be low suspicion for malignancy. The right breast was normal with no suspicious findings. Six-month follow-up MRI was recommended in his scheduled for 07/25/2025. She has a prior history of atypical ductal hyperplasia of the left breast in his status post left breast lumpectomy.. Examination today reveals no suspicious findings in either breast. Her Tyrer-Cuzick remaining lifetime risk of breast cancer is 42.2% and she should continue with the high risk breast screening. She is scheduled for a yearly mammogram on 07/14/2025 (tomorrow). She will follow up in 6 months, pending the results of the mammogram and MRI. Coding Level of Care Code Est Pt Level 3 (62642) Add On Problem Visit Only Diagnoses At high risk for breast cancer Z91.89 Abnormal MRI, breast R92.8 Atypical ductal hyperplasia of left breast N60.92 Pseudoangiomatous stromal hyperplasia of breast N64.89
[2025-07-13 09:17] VITALS: BP 176/104; PULSE 95; BMI 42.9
== END 2025-07-13 09:26 | disposition home or self-care (01) ==
LOC: HO.HGS 09:07
PROVIDERS: PCP Internal Medicine; Visit Provider Surgery
DX: Z91.89 Other specified personal risk factors, not elsewhere classified (principal); R92.8 Other abnormal and inconclusive findings on diagnostic imaging of breast; N60.92 Unspecified benign mammary dysplasia of left breast; N64.89 Other specified disorders of breast
CPT/HCPCS: 99213

== ENCOUNTER 2025-07-14 09:49 | Outpatient (REF) | payer BC, SELFPAY ==
--- OUTSIDE RECORDS SUMMARY | 2024-01-28 03:30 | XMS_ITS ---
Author Organization [facility] Address [address] [place] [address] Care Team Providers Care Family And Consumer Education Teacher Name Role Phone Breanna LOPEZ Primary Care Provider Kolby Bergman [phone] REASON FOR VISIT screening Encounters Encounter Location Date Provider Diagnosis [facility] [place] Out[place] [address] [place] [id number] 01/28/2024 Kolby Stanton Encounter for scre ening [...] * ROMÁN MCNAIR:1975 ( 49 yo F)Acc No.[id number]:01/28/2024 COLON WITH MAC Patient: SONAL BASHIR Provider: Perry Stanton MD :1975 A ge:48 Y S ex:Female Date:01/28/2024 Address:[address] [place], [place] [address] Pcp:Breanna LOPEZ Subjective: * Chief Complaints: * S creening Assessment: * Assessment: 1. E ncounter for screening colonoscopy - Z12.11 (Primary) 2 . C olon polyps - K63.5 3 . O ther hemorrhoids - K64.8 Plan: * Procedure Codes: 4 5385 LESION REMOVAL COLONOSCOPY, Modifiers: PT Billing Information: * Procedure Codes: 71276 LESION REMOVAL COLONOSCOPY. Modifiers: PT * The named appointment provid er may or may not be the originator of this progress note, and it is not deemed complete until electronically signed by the appointment provider. Sign off status: Pending * Provider: Perry Stanton MD Date: 0 01/28/2024 Generated for Ashlyn reeves/Germain/Kamsmitting on: 1 09/14/2024 09:52 AM EST
--- OUTSIDE RECORDS SUMMARY | 2024-05-24 09:53 | XMS_ITS | Encounter Summary ---
Author Organization [facility] Address [address] [place] [address] Care Team Providers Care Family Preservation Worker Name Role Phone Unavailable Primary Care Provider [...] on 05/24/2024 11:33 AM. Workstation Name - [id number] Procedure Note Ronny Graves MD - 09/28/2024 [...] MD on 05/24/2024 11:33AM. Workstation Name - [id number] [facility] XR PROCEDURES Final Result documented in this encounter Visit Diagnoses Diagnosis History of falling Pain in left ankle and joints of left foot documented in this encounter
--- OUTSIDE RECORDS SUMMARY | 2025-07-14 09:52 | XMS_ITS ---
Author Name [facility] Organization Unknown History of Medication Use Medication Directions Dispensed Refills Start Date End Date Stat us metFORMIN (GLUCOPHAGE) 500 mg Immediate Release tablet 1 TABLET BY MOUTH DAILY WITH MEAL 05/12/2024 active atorvastatin (LIPITOR) 10 mg tablet Take 1 tablet (10 mg total) by mouth at bedtime. 05/05/2024 active ketoconazole (NIZORAL) 2 % shampoo APPLY SHAMPOO AND FACE WASH TWICE A WEEK 04/13/2024 active pantoprazole (PROTONIX) 40 mg tablet Take 1 tablet (40 mg total) by mouth daily. 03/17/2024 active fluticasone propionate (FLONASE) 50 mcg/actuation nasal spray USE ONE SPRAY IN BOTH NOSTRILS DAILY. active Allergies Allergen Reaction Severity Comment Documented Date Source Statu s AMLODIPINE BESYLATE EDEMA 05/24/2024 [facility] active Problems Problem Status Onset Date Problem Type Date of Resoluti on Source Injury of left ankle, initial encounter active 2024-05-24 [facility] GERD without esophagitis active 2024-04-27 ProblemAct [facility] Hypertension active 2024-04-27 ProblemAct [facility] Immunizations Vaccine Date Source Lot Number Status Influenza, trivalent, inject able, contains preservative 05/07/2022 [facility] [id number] completed Influenza, trivalent, inject able, contains preservative 05/12/2019 [facility] [id number] completed Influenza, trivalent, inject able, contains preservative 08/12/2018 [facility] [id number] completed Influenza, trivalent, inject able, contains preservative 05/04/2017 [facility] [id number] completed Influenza, trivalent, inject able, contains preservative 05/02/2015 [facility] [id number] completed MMR 08/05/2013 [facility] [id number] completed Influenza, unspecified formulation 08/04/2013 [facility] 3 [id number] completed Tdap 08/04/2013 [facility] [id number] completed Encounters Encounter Type Encounter Reason Primary Diagnosis Location Date Ambulatory Diarrhea Diarrhea [facility] 06/01/2024 Ambulatory Injury, other and unspecified, knee, leg, ankle, and foot Injury, other and unspecified, knee, leg, ankle, and foot [facility] 05/24/2024 Care Team Organization Name Specialty Phone Email Start Date End Da ned [facility] 05/24/2024
--- OUTSIDE RECORDS SUMMARY | 2025-07-14 09:52 | XMS_ITS | Clinical Summary ---
Author Organization [address] Address [address] [place] [address] Care Team Providers Care Pictures Editor Name Role Phone Unavailable Primary Care Provider [...] GERD without esophagitis 04/27/2024 Hypertension 04/27/2024 Immunizations Immunization Administration Dates Next Due Influenza, trivalent, inject [...] 82 06/01/2024 1:50 PM EDT Temperature 36.7 C (98.1 F) 06/01/2024 1:50 PM EDT Respiratory Rate 16 06/01/2024 1:50 PM EDT [...] q 10,TDAP once) 08/04/2023 08/04/2013 Influenza vaccine 03/02/2025 05/07/2022, , 08/12/2018, Additional history exists Covid-19 vaccine series ( season) 2025 11/18/2020, 10/27/2020 RSV Immunization (1 - 1-dose 75+ series) 2052 Meningococcal B Vaccine Aged Out No l onger eligible based on patient's age to complete this topic Meningococcal Vaccine Aged Out No tyler norma eligible based on patient's age to complete this topic Pneumococcal Vaccine (2 - 49 years) Aged Out No longer eligible based on patient's age to complete this topic Insurance BS
--- OUTSIDE RECORDS SUMMARY | 2025-07-14 09:52 | XMS_ITS | Patient Health Record ---
Author Organization [facility] Address [address] [place] [address] Care Team Providers Care Property Insurance Inspector Name Role Phone JESSICA Breanna Primary Care Provider Kolby Bergman [phone] Allergies Allergen (clinical drug ingredient) Drug/Non Drug Allergy documented on EMR Reaction Allergy Type Onset Date Status seasonal (uncoded) Unknown Allergy A ctive Reason For Referral No Information Medications Medication SIG (Take, Route, Frequency, Duration) Notes Start Date End Date Status Multi Vitamin - Tablet 1 tablet Orally O nce a day; Duration: 30 day(s) Active Pantoprazole Sodium 40 MG Tablet Delayed Release TAKE 1 TABLET BY MOUTH EVERY DAY FOR 30 DAYS; Duration: 90 Active Immunizations Vaccine Route Administration Date Status Comme nts Influenza Unknown 05/09/2020 Administered Influenza Unknown 04/20/2023 Administered Social History Tobacco Use: Social History Observation Description Date Details (start date - stop date) Never Smoker NA - NA Social History Drugs/Alcohol: Social Info Question Answer Notes Alcohol Screen Did you have a drink containing alcohol in the past year? Yes How often did you have a drink containing alcohol in the past year? Monthly or less (1 point) How many drinks did you have on a typical day when you were drinking in the past year? 1 or 2 drinks (0 point) How often did you have 6 or more drinks on one occasion in the past year? 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 Notes: Nonsmoker; no sig alcohol Nonsmoker; no sig alcohol Nonsmoker; no sig alcohol Problems Problem Type SNOMED Code ICD Code Onset Dates Problem Status W/U Status Risk Notes Problem Colon cancer screening (588576432) Colon cancer screening (Z12.11) Active confirmed Problem Eosinophilic esophagitis (779179005) Eosinophilic esophagitis (K20.0) Active confirmed Problem Gastroesophageal reflux disease without esophagitis (809419635) Gastroesophageal reflux disease without esophagitis (K21.9) Active confirmed Problem Gastric polyp (30211062) Gastric polyp (K31.7) Active confirmed Problem Hiatal hernia (24577845) Hiatal hernia (K44.9) Active confirmed Problem Esophageal ring (59807472) Esophageal ring (K22.2) Active confirmed Problem Esophageal reflux finding (234664190) Gastroesophageal reflux (K21.9) Active confirmed Problem Gastroesophageal reflux disease (596171851) Gastroesophageal reflux disease, unspecified whether esophagitis present (K21.9) Active confirmed Problem Gastroesophageal reflux disease (disorder) (013524395) Chronic GERD (K21.9) Active confirmed Encounters Encounter Location Date Provider Diagnosis [facility] [address] [place] [address] 06/18/2025 Kolby Stanton Plan Of Treatment Future Test Test Name Order Date UPPER GI ENDOSCOPY 05/15/2021 COLONOSCOPY 10/20/2023 Insurance Providers Payer Name Payer Address Payer Phone Subscriber Number Group Number Insured Name Patient Relationship to Insured Coverage Start Date Coverage End Date HELADIO LANTIGUA OF [facility] [address] [place] [address] [id number] KING SONAL Self - patient is the insured Medical (General) History Medical History History ICD Code Denies [place],DM,CVA,Lung disease,renal dise ase EGD in 2005 when [...] 2013 Umbilical hernia surgery-Dr. Lawrence Left breast [id number]. Mazzuc co
--- OUTSIDE RECORDS SUMMARY | 2025-07-14 09:53 | XMS_ITS | Clinical Summary ---
Author Organization [facility] Prior to 12/30/24 Address [address] [place] [address] Care Team Providers Care Telegraph Inspector Name Role Phone Unavailable Primary Care Provider [...] Tdap) 08/04/2023 08/04/2013 COVID-19 Vaccine ( season) 2025 11/18/2020, 10/27/2020 Influenza Vaccine (#1) 2025 2, 05/12/2019, 08/12/2018, Additional history exists Pneumococcal Vaccine Aged Out No long er eligible based on patient's age to complete this topic RSV Ped < 20 months Aged Out No longe r eligible based on patient's age to complete this topic
--- OUTSIDE RECORDS SUMMARY | 2025-07-14 09:53 | XMS_ITS | Clinical Summary ---
Author Organization [facility] Address [address] [place] [address] Care Team Providers Care Supervisor Carding Name Role Phone Unavailable Primary Care Provider Unavailabl e Immunizations Immunization Administration Dates Next Due Pfizer SARS-CoV-2 COVID-19, [...] Last Done Comments Breast Cancer Screening 1977 Colorectal Cancer Screening: Colonoscopy 1977 DTaP,Tdap,and Td Vaccines (1 - Tdap) 1996 Hepatitis B Vaccines (1 of 3 - 19+ 3-dose series) 1996 Cervical Cancer Screening: P ap Smear 1998 HIV Screening 05/24/2024 Hepatitis C Screening 05/24/2024 Social Influencers of Health Screening 05/24/2024 Depression Screening 08/02/2024 COVID-19 Vaccine (3 - 2024-2 6 season) 2025 11/18/2020, 10/27/2020 Influenza Vaccine (#1) 2025 RSV Immunization Adult Patients (1 - 1-dose 75+ series) 2052 HIB Vaccines Aged Out No longer eligi [...] 5 Years) and At-Risk Patients (6 to 49 Years) Aged Out No longer eligible b ased on patient's age to complete this topic RSV Immunization Patients Under 20 months Aged Out No longer eligible b ased on patient's age to complete this topic Varicella Vaccines Aged Out No longer eligible based on patient's age to complete this topic
== END 2025-07-14 09:50 | disposition home or self-care (01) ==
LOC: HO.MAMMO 09:49
PROVIDERS: PCP Internal Medicine; Visit Provider Internal Medicine
DX: Z12.31 Encounter for screening mammogram for malignant neoplasm of breast (principal)
CPT/HCPCS: 77063; 77067

== ENCOUNTER → 2025-07-14 10:00 | Outpatient (BNV) | payer BC, SELFPAY | PROVIDERS: PCP Internal Medicine; Visit Provider Internal Medicine | DX: Z12.31 Encounter for screening mammogram for malignant neoplasm of breast (principal) | CPT/HCPCS: 77063; 77067 ==

== ENCOUNTER → 2025-07-25 12:53 | Outpatient (BNV) | payer BC, SELFPAY | PROVIDERS: PCP Internal Medicine; Visit Provider Internal Medicine | DX: R92.8 Other abnormal and inconclusive findings on diagnostic imaging of breast (principal) | CPT/HCPCS: 77049 ==

== ENCOUNTER 2025-07-25 12:55 | Outpatient (REF) | payer BC, SELFPAY ==
--- OUTSIDE RECORDS SUMMARY | 2024-01-28 03:30 | XMS_ITS ---
Author Organization [facility] [place] Address [address] [place] [address] Care Team Providers Care Credit Underwriter Name Role Phone Breanna LOPEZ Primary Care Provider Kolby Bergman [phone] REASON FOR VISIT screening Encounters Encounter Location Date Provider Diagnosis [facility] [place] [address] [place] [id number] 01/28/2024 Kolby Stanton Encounter for scre ening colonoscopy Z12.11 ; Colon polyps K63.5 and Other hemorrhoids K64.8 Assessments Encounter Date Diagnosis (ICD Code) Assessment Notes Treatment Notes Treatment Clinical Notes Section Notes 01/28/2024 Encounter for screening colonoscopy (ICD-10 - Z12.11) 01/28/2024 Colon polyps (ICD-10 - K63.5) 01/28/2024 Other hemorrhoids (ICD-10 - K64.8) Plan Of Treatment No Information Progress Notes * ROMÁN MCNAIR:1975 ( 49 yo F)Acc No.[id number]:01/28/2024 COLON WITH MAC Patient: SONAL BASHIR Provider: Perry Stanton MD :1975 A ge:48 Y S ex:Female Date:01/28/2024 Address:[address] [place], [place] [address] Pcp:Breanna LOPEZ Subjective: * Chief Complaints: * S creening Assessment: * Assessment: 1. E ncounter for screening colonoscopy - Z12.11 (Primary) 2 . C olon polyps - K63.5 3 . O ther hemorrhoids - K64.8 Plan: * Procedure Codes: 4 5385 LESION REMOVAL COLONOSCOPY, Modifiers: PT Billing Information: * Procedure Codes: 52863 LESION REMOVAL COLONOSCOPY. Modifiers: PT * The named appointment provid er may or may not be the originator of this progress note, and it is not deemed complete until electronically signed by the appointment provider. Sign off status: Pending * Provider: Perry Stanton MD Date: 0 01/28/2024 Generated for Ashlyn reeves/Germain/Kylahitting on: 1 09/25/2024 12:58 PM EST
--- OUTSIDE RECORDS SUMMARY | 2024-05-24 09:53 | XMS_ITS | Encounter Summary ---
Author Organization [facility] Address [address] [place] [address] Care Team Providers Care Parcel Post Order Clerk Name Role Phone Unavailable Primary Care Provider Unavailabl e Encounter Details Date Type Department Care Team (Latest Contact Info) Description 05/24/2024 10:53 AM EDT Hospital Encounter TH HISTORIC ENCOUNTERS EASTERN CONVERSION ONLY History of falling; Pain in left ankle and joints of left foot Social History Tobacco Use Types Packs/Day Years Used Date Smoking Tobacco: Never Assessed Comments Unknown Sex and Gender Information Value Date Recorded Sex Assigned at Not on file Legal Sex Female 10:44 AM EDT Gender Identity Not on file Sexual Orientation Not on file documented as of this encounter Plan of Treatment Not on file documented as of this encounter Procedures Procedure Name Priority Date/Time Associated Diagnosis Comments XR ANKLE COMPLETE - LEFT Routine 05/24/2024 11:18 AM EDT History of falling Pain in left ankle and joints of left foot documented in this encounter Results * XR ANKLE COMPLETE - LEFT (05/24/2024 11:18 AM EDT) Anatomical Region Laterality Modality Radiographic Chichi ging 05/24/2024 10:4 6 AM EDT Narrative 05/24/2024 11:33 AM EDT XR ANKLE COMPLETE - LEFT REASON FOR EXAM: History of recent fall, Acute left ankle pain R/O fracture DIAGNOSIS PER PROVIDER: History of falling, Pain in left ankle and joints of left foot COMPARISON: None. TECHNIQUE: AP, lateral and oblique. FINDINGS: Small well-corticated ossicles arising from the tips of the malleoli and lateral surface of the talus. The appearance is most consistent with old as opposed to acute avulsion fractures. Anatomic alignment of the ankle mortise joint. Periarticular soft tissue swelling. Moderate-sized posterior heel spur. CONCLUSION: Chronic appearing avulsion fractures. Posttraumatic periarticular soft tissue swelling. Heel spur. Report reviewed and signed by : Dr. Ronny Graves MD on 05/24/2024 11:33 AM. Workstation Name - [id number] Procedure Note Ronny Graves MD - 09/28/2024 XR ANKLE COMPLETE - LEFT REASON FOR EXAM: History of recent fall, Acute left ankle pain R/Ofracture DIAGNOSIS PER PROVIDER: History of falling, Pain in left ankle and jointsof left foot COMPARISON: None. TECHNIQUE: AP, lateral and oblique. FINDINGS: Small well-corticated ossicles arising from the tips of the malleoli andlateral surface of the talus. The appearance is most consistent with oldas opposed to acute avulsion fractures. Anatomic alignment of the ankle mortise joint. Periarticular soft tissueswelling. Moderate-sized posterior heel spur. CONCLUSION: Chronic appearing avulsion fractures. Posttraumatic periarticular soft tissue swelling. Heel spur. Report reviewed and signed by : Dr. Ronny Graves MD on 05/24/2024 11:33AM. Workstation Name - [id number] [facility] XR PROCEDURES Final Result documented in this encounter Visit Diagnoses Diagnosis History of falling Pain in left ankle and joints of left foot documented in this encounter
--- OUTSIDE RECORDS SUMMARY | 2025-07-25 12:58 | XMS_ITS | Patient Health Record ---
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: Nonsmoker; no sig alcohol Nonsmoker; no sig alcohol Nonsmoker; no sig alcohol Problems Problem Type SNOMED Code ICD Code Onset Dates Problem Status W/U Status Risk Notes Problem Colon cancer screening (517661480) Colon cancer screening (Z12.11) Active confirmed Problem Eosinophilic esophagitis (088082985) Eosinophilic esophagitis (K20.0) Active confirmed Problem Gastroesophageal reflux disease without esophagitis (235944823) Gastroesophageal reflux disease without esophagitis (K21.9) Active confirmed Problem Gastric polyp (72606432) Gastric polyp (K31.7) Active confirmed Problem Hiatal hernia (58257943) Hiatal hernia (K44.9) Active confirmed Problem Esophageal ring (52928600) Esophageal ring (K22.2) Active confirmed Problem Esophageal reflux finding (043190236) Gastroesophageal reflux (K21.9) Active confirmed Problem Gastroesophageal reflux disease (745518441) Gastroesophageal reflux disease, unspecified whether esophagitis present (K21.9) Active confirmed Problem Gastroesophageal reflux disease (disorder) (048387089) Chronic GERD (K21.9) Active confirmed Encounters Encounter Location Date Provider Diagnosis [facility] [address] [place] [address] 06/18/2025 Kolby Stanton Plan Of Treatment Future Test Test Name Order Date UPPER GI ENDOSCOPY 05/15/2021 COLONOSCOPY 10/20/2023 Insurance Providers Payer Name Payer Address Payer Phone Subscriber Number Group Number Insured Name Patient Relationship to Insured Coverage Start Date Coverage End Date HELADIO LANTIGUA OF [facility] [address] [place] [address] [id number] KING SONAL Self - patient is the insured Medical (General) History Medical History History ICD Code Denies [place],DM,CVA,Lung disease,renal dise ase EGD in 2005 when [...] 2013 Umbilical hernia surgery-Dr. Lawrence Left breast [id number]. Mazzuc co
--- OUTSIDE RECORDS SUMMARY | 2025-07-25 12:58 | XMS_ITS | Clinical Summary ---
Author Organization [facility] Prior to 12/30/24 Address [address] [place] [address] Care Team Providers Care Slat Pickler Name Role Phone Unavailable Primary Care Provider [...]
--- OUTSIDE RECORDS SUMMARY | 2025-07-25 12:58 | XMS_ITS | Clinical Summary ---
Author Organization [address] Address [address] [place] [address] Care Team Providers Care Electric Locomotive Firer/Fireman Name Role Phone Unavailable Primary Care Provider [...] Injury of left ankle, initial encounter 05/24/20 GERD without esophagitis 04/27/2024 Hypertension 04/27/2024 Immunizations [...] patient's age to complete this topic Insurance Member Subscriber Plan / Payer (Ef fective 2022-Present) Name:Aj Mcnair Member ID:[id number] Relation to Subscriber:Spouse Name:FAY MCNAIR Subscriber ID:[id number] (Home) Address: [address] [place] [address] Payer ID:[id number] (NAIC) Type:Not on file Address: [address] [place] [address] BS
--- OUTSIDE RECORDS SUMMARY | 2025-07-25 12:59 | XMS_ITS | Data Portability ---
Author Organization [place] - [facility] Address [address] [place] [address] Assessment No assessment recorded. Plan of Treatment [...] Diagnosis SNOMED-CT Code Diagnosis ICD10 Code Diagnosis IMO Codes Diagnosis Note [id number] Haydee Loredo MD [address] [address] 06/30/2013 08:00:54 06/30/2013 08:48:16 Health Concerns Section Related Observation LastModified by Organization Detai ls LastModified Time None Recorded Concern Status LastModified by Organization Details LastModified Time None Recorded Advance Directives Directive None Recorded Payers Insurance Date Sequence Insurance Name Policy Number Policy Momin Covered Member ID Momin Member ID Guarantor Name 06/28/2013 1 *SELF PAY* An oscar Leigh OBGyn Episode No OBEpisode recorded.
--- OUTSIDE RECORDS SUMMARY | 2025-07-25 12:59 | XMS_ITS | Clinical Summary ---
Author Organization [facility] Address [address] [place] [address] Care Team Providers Care Embroidery Specialist Name Role Phone Unavailable Primary Care Provider [...]
== END 2025-07-25 12:56 | disposition home or self-care (01) ==
LOC: HO.MRI 12:55
PROVIDERS: PCP Internal Medicine; Visit Provider Surgery
DX: R92.8 Other abnormal and inconclusive findings on diagnostic imaging of breast (principal); N60.92 Unspecified benign mammary dysplasia of left breast; Z91.89 Other specified personal risk factors, not elsewhere classified
CPT/HCPCS: 77049; A9585